=== PATIENT | female | born 1980 | race Caucasian/White ===

== ENCOUNTER → 2017-09-03 11:04 | Outpatient (CLI) | payer OTHER, SELFPAY ==
[2017-09-03 14:31] LABS: Amphetamine/Metha Screen,Urine Negative ng/mL (<1000); Barbiturates Screen,Urine Negative ng/mL (<200); Benzodiazepines Screen,Urine Negative ng/mL (200); Cannabinoid Screen,Urine Positive ng/mL (<50); Cocaine Screen,Urine Negative ng/g (<300); Methadone Screen,Urine Negative ng/mL (<300); Opiate Screen,Urine Negative ng/mL (<300); Phencyclidine Screen,Urine Negative ng/mL (<25)
== END ==
PROVIDERS: Visit Provider Emergency Medicine
DX: Z79.899 Other long term (current) drug therapy (principal)
CPT/HCPCS: 80305

== ENCOUNTER 2017-09-07 18:00 | Emergency (ER) | payer OTHER, SELFPAY ==
[2017-09-07 18:01] VITALS: BP 133/85; PULSE 58; RESP 16; TEMP 36.7; O2SAT 98; BMI 29.0
[2017-09-07 18:54] LABS: Basophils % 0.5 % (0.1-2.0); Eosinophils # 0.3 K/mm3 (0.0-0.4); Eosinophils % 2.8 % (0.1-12.0); Hematocrit 38.8 % (37.0-47.0); Hemoglobin 12.3 g/dL (12.2-16.2); Lymphocytes # 3.3 K/mm3 (0.7-4.5); Lymphocytes % 36.5 K/mm3 (10-50); Mean Corpuscular HGB Conc 31.8 g/dL (31.8-35.4); Mean Corpuscular Hemoglobin 29.9 pg (27.0-31.2); Mean Corpuscular Volume 94.2 fl (81-99); Mean Platelet Volume 8.6 fl (7.4-10.4); Monocytes # 0.5 K/mm3 (0.1-1.0); Neutrophils % 55.2 % (37.0-80.0); Platelet Count 272 K/mm3 (142-424); Red Blood Count 4.11 M/mm3 (4.20-5.40); Red Cell Distribution Width 13.6 % (11.5-17.5); White Blood Count 9.1 K/mm3 (4.8-10.8)
--- NOTE | 2017-09-07 18:55 | HMH.EDSYNC ---
ED Disposition Clinical Impression: Palpitations Syncope Qualifiers: Syncope type: unspecified Qualified Code(s): R55 - Syncope and collapse Disposition: Home, Self-Care Condition on Discharge: Good Instructions: DI for Sick Sinus Syndrome Additional Instructions: Please follow-up with your clip loading machine feeder (for a 2nd opinion) at your earliest convenience. Referrals: Galo Davenport MD [Primary Care Provider] - Forms: Work/School Release Time of Disposition: 20:10 - Critical Care Critical Care Time: No Attestation: On 09/07/17, the high probability of a clinically significant, sudden or life threatening deterioration of the following system(s) required my full and direct attention, intervention and personal management. The time I documented below is in addition to time spent performing reported procedures but includes the following listed in this critical care notation. Medical Decision Making - Medical Records Medical records reviewed: Yes: I reviewed the patient's medical records. Vital Signs: 09/07/17 18:01 09/07/17 19:01 09/07/17 20:23 Temperature 98.1 F 97.9 F 98.6 F Temperature Source Oral Oral Oral Pulse Rate 68 Pulse Rate [Right Radial] 58 L 63 Respiratory Rate 16 18 18 Blood Pressure 130/78 Blood Pressure [Right Arm] 133/85 141/80 Blood Pressure Mean [Right Arm] 101 100 Blood Pressure Source Automatic Cuff Blood Pressure Source [Right Arm] Automatic Cuff Automatic Cuff Blood Pressure Position Sitting Blood Pressure Position [Right Arm] Sitting Sitting 02 Sat by Pulse Oximetry 98 99 Oxygen Delivery Method Room Air Room Air Room Air - Lab Data Lab results reviewed: Yes: I reviewed the patient's lab results. Lab Results 09/07/17 18:45: WBC 9.1, RBC 4.11 L, Hgb 12.3, Hct 38.8, MCV 94.2, MCH 29.9, MCHC 31.8, RDW 13.6, Plt Count 272, MPV 8.6, Neut % (Auto) 55.2, Lymph % (Auto) 36.5, [place] % (Auto) 5.0, Eos % (Auto) 2.8, Baso % (Auto) 0.5, Neut # (Auto) 5.0, Lymph # (Auto) 3.3, [place] # (Auto) 0.5, Eos # (Auto) 0.3, Baso # (Auto) 0.0 09/07/17 18:45: Sodium 139, Potassium 3.5, Chloride 107, Carbon Dioxide 26, Anion Gap 9.5, BUN 9, Creatinine 0.74, Estimated Creat Clear 133, Estimated GFR 88, Est GFR ( Amer) 106, Glucose 96, Calcium 8.2 L, Total Bilirubin 0.3, AST 13 L, ALT 19, Alkaline Phosphatase 57, Total Protein 6.7, Albumin 3.3 L, Globulin 3.4 H, Albumin/Globulin Ratio 1.0 L 09/07/17 18:45: Total Creatine Kinase 95, CK-MB (CK-2) 0.5, CK-MB (CK-2) Rel Index 0.5, Troponin I < 0.02 Result diagrams: 09/07/17 18:45 09/07/17 18:45 Orders (Tests/Meds): ORDERS Category Date Time Status ECG Request by /Darleen Stat Y 09/07/17 18:37 Ordered - ECG Data Tracing #1 I reviewed this ECG and interpreted as documented below: No acute ischemic changes ECG normal with no acute: arrhythmias, ischemia, conduction abnormalities, chamber hypertrophy Normal Sinus Rhythm: Yes Arrhythmias present: PVC's - Kofi Inquiry Pt receiving controlled substance: No - Reevaluation(s) Time: 20:10 Reevaluation #1: Upon reevaluation the patient appears medically stable distress, advised her to follow-up with window 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 Syncope HPI - General Chief Complaint: Dizziness Stated Complaint: Dizziness Mode of Arrival: Ambulatory Limitations: No Limitations Description of Symptoms (Recalled from ER Triage Doc. by RN): Dizziness, near syncope - History of Present Illness HPI narrative: This is a 36-year-old female patient with history of syndrome, which are the underwent a radiofrequency ablation in [facility] approximately 2 years ago. She was at work around 3 PM, felt dizzy, hot, and passed out. She said that she did not pass out completely. Since being diagnosed with this medical condition the patient has had similar episodes in the past, on an average having 7-8 syncopal episodes per year. Her clip loading machine feeder in [facility] adv
--- NOTE | 2017-09-07 18:58 | ED_ITS ---
ED Disposition Clinical Impression: Palpitations Syncope Qualifiers: Syncope type: unspecified Qualified Code(s): R55 - Syncope and collapse Disposition: Home, Self-Care Condition on Discharge: Good Instructions: DI for Sick Sinus Syndrome Additional Instructions: Please follow-up with your gleason gear generator (for a 2nd opinion) at your earliest convenience. Referrals: Galo Davenport MD [Primary Care Provider] - Forms: Work/School Release Time of Disposition: 20:10 - Critical Care Critical Care Time: No Attestation: On 09/07/17, the high probability of a clinically significant, sudden or life threatening deterioration of the following system(s) required my full and direct attention, intervention and personal management. The time I documented below is in addition to time spent performing reported procedures but includes the following listed in this critical care notation. Medical Decision Making - Medical Records Medical records reviewed: Yes: I reviewed the patient's medical records. Vital Signs: 09/07/17 18:01 09/07/17 19:01 09/07/17 20:23 Temperature 98.1 F 97.9 F 98.6 F Temperature Source Oral Oral Oral Pulse Rate 68 Pulse Rate [Right Radial] 58 L 63 Respiratory Rate 16 18 18 Blood Pressure 130/78 Blood Pressure [Right Arm] 133/85 141/80 Blood Pressure Mean [Right Arm] 101 100 Blood Pressure Source Automatic Cuff Blood Pressure Source [Right Arm] Automatic Cuff Automatic Cuff Blood Pressure Position Sitting Blood Pressure Position [Right Arm] Sitting Sitting 02 Sat by Pulse Oximetry 98 99 Oxygen Delivery Method Room Air Room Air Room Air - Lab Data Lab results reviewed: Yes: I reviewed the patient's lab results. Lab Results 09/07/17 18:45: WBC 9.1, RBC 4.11 L, Hgb 12.3, Hct 38.8, MCV 94.2, MCH 29.9, MCHC 31.8, RDW 13.6, Plt Count 272, MPV 8.6, Neut % (Auto) 55.2, Lymph % (Auto) 36.5, [place] % (Auto) 5.0, Eos % (Auto) 2.8, Baso % (Auto) 0.5, Neut # (Auto) 5.0 , Lymph # (Auto) 3.3, [place] # (Auto) 0.5, Eos # (Auto) 0.3, Baso # (Auto) 0.0 09/07/17 18:45: Sodium 139, Potassium 3.5, Chloride 107, Carbon Dioxide 26, Anion Gap 9.5, BUN 9, Creatinine 0.74, Estimated Creat Clear 133, Estimated GFR 88, Est GFR ( Amer) 106, Glucose 96, Calcium 8.2 L, Total Bilirubin 0.3, AST 13 L, ALT 19, Alkaline Phosphatase 57, Total Protein 6.7, Albumin 3.3 L, Globulin 3.4 H, Albumin/Globulin Ratio 1.0 L 09/07/17 18:45: Total Creatine Kinase 95, CK-MB (CK-2) 0.5, CK-MB (CK-2) Rel Index 0.5, Troponin I < 0.02 Result diagrams: 09/07/17 18:45 09/07/17 18:45 Orders (Tests/Meds): ORDERS Category Date Time Status ECG Request by /Darleen Stat Y 09/07/17 18:37 Ordered - ECG Data Tracing #1 I reviewed this ECG and interpreted as documented below: No acute ischemic changes ECG normal with no acute: arrhythmias, ischemia, conduction abnormalities, chamber hypertrophy Normal Sinus Rhythm: Yes Arrhythmias present: PVC's - Kofi Inquiry Pt receiving controlled substance: No - Reevaluation(s) Time: 20:10 Reevaluation #1: Upon reevaluation the patient appears medically stable distress, advised her to follow-up with molded candles wicker within the next 2 days. Syncope HPI - General Chief Complaint: Dizziness Stated Complaint: Dizziness Mode of Arrival: Ambulatory Limitations: No Limitations Descripti
[2017-09-07 19:01] VITALS: BP 141/80; PULSE 63; RESP 18; TEMP 36.6; O2SAT 99
[2017-09-07 19:01] LABS: Alanine Aminotransferase 19 U/L (12-78); Albumin Level 3.3 gm/dL (3.4-5.0); Alkaline Phosphatase 57 U/L (46-116); Anion Gap 9.5 mEq/L (5-15); Aspartate Amino Transferase 13 U/L (15-37); Bilirubin,Total 0.3 mg/dL (0.2-1.0); Blood Urea Nitrogen 9 mg/dL (7-18); Calcium 8.2 mg/dL (8.5-10.1); Carbon Dioxide 26 mmol/L (21.0-32.0); Chloride 107 mmol/L (98-107); Creatinine Clearance Estimated 133 mL/min (0-300); Creatinine,Serum 0.74 mg/dL (0.55-1.02); Estimated Glomerular Filt Rate 88 ml/min (>60); GFR (African American) 106 ML/MIN (>60); Globulin 3.4 gm/dl (1.3-3.2); Glucose 96 mg/dL (74-106); Potassium 3.5 mmoL/L (3.5-5.1); Sodium 139 mmol/L (136-145); Total Protein,Serum 6.7 gm/dL (6.4-8.2)
[2017-09-07 19:14] LABS: CKMB Relative Index 0.5 U/L (0-4.0); Creatine Kinase 95 U/L (26-192); Creatine Kinase MB 0.5 mg/ml (0.0-3.6); Troponin I < 0.02 ng/ml (0.00-0.06)
[2017-09-07 20:23] VITALS: BP 130/78; PULSE 68; RESP 18; TEMP 37; O2SAT 98
== END 2017-09-07 20:23 | disposition home or self-care (01) ==
PROVIDERS: Emergency Provider Emergency Medicine; PCP Emergency Medicine
DX: R55 Syncope and collapse (principal); R00.2 Palpitations; I49.5 Sick sinus syndrome; F17.210 Nicotine dependence, cigarettes, uncomplicated; Z79.82 Long term (current) use of aspirin
CPT/HCPCS: 80053; 82550; 82553; 84484; 85025; 93005; 99283

== ENCOUNTER 2017-09-22 00:07 | Emergency (ER) | payer OTHER, SELFPAY ==
[2017-09-22 00:13] VITALS: BP 126/106; PULSE 115; RESP 20; TEMP 37.3; O2SAT 94; BMI 28.8
[2017-09-22 00:57] LABS: Basophils % 0.4 % (0.1-2.0); Eosinophils # 0.1 K/mm3 (0.0-0.4); Eosinophils % 1.8 % (0.1-12.0); Hematocrit 43.4 % (37.0-47.0); Hemoglobin 14.3 g/dL (12.2-16.2); Lymphocytes # 0.7 K/mm3 (0.7-4.5); Lymphocytes % 10.9 K/mm3 (10-50); Mean Corpuscular HGB Conc 33.1 g/dL (31.8-35.4); Mean Corpuscular Hemoglobin 30.3 pg (27.0-31.2); Mean Corpuscular Volume 91.6 fl (81-99); Mean Platelet Volume 8.5 fl (7.4-10.4); Monocytes # 0.7 K/mm3 (0.1-1.0); Monocytes % 10.1 % (1.7-9.3); Neutrophils # 5.1 K/mm3 (1.8-7.8); Neutrophils % 76.8 % (37.0-80.0); Platelet Count 252 K/mm3 (142-424); Red Blood Count 4.73 M/mm3 (4.20-5.40); Red Cell Distribution Width 13.5 % (11.5-17.5); White Blood Count 6.6 K/mm3 (4.8-10.8)
[2017-09-22 01:07] LABS: Anion Gap 9.7 mEq/L (5-15); Blood Urea Nitrogen 10 mg/dL (7-18); Carbon Dioxide 22 mmol/L (21.0-32.0); Chloride 103 mmol/L (98-107); Creatinine Clearance Estimated 142 mL/min (0-300); Creatinine,Serum 0.69 mg/dL (0.55-1.02); Estimated Glomerular Filt Rate 95 ml/min (>60); GFR (African American) 115 ML/MIN (>60); Glucose 96 mg/dL (74-106); Potassium 3.7 mmoL/L (3.5-5.1); Sodium 131 mmol/L (136-145)
[2017-09-22 01:26] LABS: Microscopic, Urine URINE MICROSCOPIC (MICROSCOPIC)
[2017-09-22 01:27] LABS: Appearance,Urine CLEAR (Clear); Blood, Urine 1+ (Negative); Color,Urine YELLOW (Yellow); Glucose,Urine (UA) Negative (Negative); Ketones,Urine 3+ (Negative); Leukocyte Esterase,Urine 2+ (Negative); Nitrate,Urine Negative (Negative); PH,Urine 5.5 (5.0-8.5); Protein,Urine TRACE (Negative); Specific Gravity, Urine >= 1.030 (1.005-1.030); Urobilinogen,Urine 0.2 EU/dl (0.2)
[2017-09-22 01:37] LABS: Amorphous Sediment,Urine Trace /lpf; Bacteria,Urine 2+ /lpf; Bilirubin,Urine Negative (Negative); Mucus,Urine 1+ /lpf
--- NOTE | 2017-09-22 02:28 | HMH.EDURI ---
ED Disposition Clinical Impression: UTI (urinary tract infection) Qualifiers: Urinary tract infection type: site unspecified Hematuria presence: without hematuria Qualified Code(s): N39.0 - Urinary tract infection, site not specified Arthralgia Qualifiers: Joint pain location: hip Laterality: left Qualified Code(s): M25.552 - Pain in left hip Disposition: Home, Self-Care Condition on Discharge: Good Instructions: DI for Urinary Tract Infection (UTI) Additional Instructions: use meds and call office for urine culture results Prescriptions: cephALEXin [Keflex 500mg Cap] 500 mg PO TID #21 cap Referrals: Galo Davenport MD [Primary Care Provider] - - Critical Care Critical Care Time: No Attestation: On 09/22/17, the high probability of a clinically significant, sudden or life threatening deterioration of the following system(s) required my full and direct attention, intervention and personal management. The time I documented below is in addition to time spent performing reported procedures but includes the following listed in this critical care notation. Medical Decision Making - Medical Records Medical records reviewed: Yes: I reviewed the patient's medical records. - Kofi Inquiry Pt receiving controlled substance: No Vital Signs: 09/22/17 00:13 Temperature 99.2 F Temperature Source Oral Pulse Rate [Right Radial] 115 H Respiratory Rate 20 Blood Pressure [Right Arm] 126/106 Blood Pressure Mean [Right Arm] 112 Blood Pressure Source [Right Arm] Automatic Cuff Blood Pressure Position [Right Arm] Sitting 02 Sat by Pulse Oximetry 94 L Oxygen Delivery Method Room Air - Lab Data Lab results reviewed: Yes: I reviewed the patient's lab results. Lab Results 09/22/17 00:47: WBC 6.6, RBC 4.73, Hgb 14.3, Hct 43.4, MCV 91.6, MCH 30.3, MCHC 33.1, RDW 13.5, Plt Count 252, MPV 8.5, Neut % (Auto) 76.8, Lymph % (Auto) 10.9, [place] % (Auto) 10.1 H, Eos % (Auto) 1.8, Baso % (Auto) 0.4, Neut # (Auto) 5.1, Lymph # (Auto) 0.7, [place] # (Auto) 0.7, Eos # (Auto) 0.1, Baso # (Auto) 0.0 09/22/17 00:47: Sodium 131 L, Potassium 3.7, Chloride 103, Carbon Dioxide 22, Anion Gap 9.7, BUN 10, Creatinine 0.69, Estimated Creat Clear 142, Estimated GFR 95, Est GFR ( Amer) 115, Glucose 96 09/22/17 00:47: C-Reactive Protein 0.5 09/22/17 00:47: Monoscreen Negative 09/22/17 00:47: Total Bilirubin 0.2, Direct Bilirubin 0.1, AST 14 L, ALT 19, Alkaline Phosphatase 72, Total Protein 7.7, Albumin 3.8 09/22/17 00:56: Influenza Type A Ag Negative, Influenza Type B Ag Negative 09/22/17 01:15: Urine Color Yellow, Urine Appearance Clear, Urine pH 5.5, Ur Specific [place] >= 1.030, Urine Protein Trace, Urine Glucose (UA) Negative, Urine Ketones 3+, Urine Blood 1+, Urine Nitrate Negative, Urine Bilirubin Negative, Urine Urobilinogen 0.2, Ur Leukocyte Esterase 2+ A, Urine RBC 3-5, Urine WBC 10-20, Ur Squamous Epith Cells 3-5, Amorphous Sediment Trace, Urine Bacteria 2+, Urine Mucus 1+ Result diagrams: 09/22/17 00:47 09/22/17 00:47 Orders (Tests/Meds): ED MEDICATIONS Generic Name Dose Route Start Last Admin Trade Name Freq PRN Reason Stop Dose Admin Ceftriaxone Sodium 1 gm/ 50 mls @ 100 mls/hr 09/22/17 02:45 09/22/17 02:42 Sodium Chloride IV 10/06/17 02:44 100 mls/hr Q24H TRAE Administration Protocol Discontinued Medications Generic Name Dose Route Start Last Admin Trade Name Freq PRN Reason Stop Dose Admin Sodium Chloride 1,000 mls @ 999 mls/hr 09/22/17 00:45 09/22/17 00:43 Sod Chlor 0.9% 1000ml Bag IV 09/22/17 01:45 999 mls/hr .Q1H1M TRAE Administration Sodium Chloride 1,000 mls @ 999 mls/hr 09/22/17 01:45 09/22/17 01:57 Sod Chlor 0.9% 1000ml Bag IV 09/22/17 02:45 999 mls/hr .Q1H1M TRAE Administration Ketorolac Tromethamine 30 mg 09/22/17 00:31 09/22/17 00:43 Toradol 30mg/Ml Vial IV 09/22/17 00:32 30 mg ONCE ONE Administration Methylprednisolone Sodium Succinate 125 mg 09/22/17
--- NOTE | 2017-09-22 02:31 | ED_ITS ---
ED Disposition Clinical Impression: UTI (urinary tract infection) Qualifiers: Urinary tract infection type: site unspecified Hematuria presence: without hematuria Qualified Code(s): N39.0 - Urinary tract infection, site not specified Arthralgia Qualifiers: Joint pain location: hip Laterality: left Qualified Code(s): M25.552 - Pain in left hip Disposition: Home, Self-Care Condition on Discharge: Good Instructions: DI for Urinary Tract Infection (UTI) Additional Instructions: use meds and call office for urine culture results Prescriptions: cephALEXin [Keflex 500mg Cap] 500 mg PO TID #21 cap Referrals: Galo Davenport MD [Primary Care Provider] - - Critical Care Critical Care Time: No Attestation: On 09/22/17, the high probability of a clinically significant, sudden or life threatening deterioration of the following system(s) required my full and direct attention, intervention and personal management. The time I documented below is in addition to time spent performing reported procedures but includes the following listed in this critical care notation. Medical Decision Making - Medical Records Medical records reviewed: Yes: I reviewed the patient's medical records. - Kofi Inquiry Pt receiving controlled substance: No Vital Signs: 09/22/17 00:13 Temperature 99.2 F Temperature Source Oral Pulse Rate [Right Radial] 115 H Respiratory Rate 20 Blood Pressure [Right Arm] 126/106 Blood Pressure Mean [Right Arm] 112 Blood Pressure Source [Right Arm] Automatic Cuff Blood Pressure Position [Right Arm] Sitting 02 Sat by Pulse Oximetry 94 L Oxygen Delivery Method Room Air - Lab Data Lab results reviewed: Yes: I reviewed the patient's lab results. Lab Results 09/22/17 00:47: WBC 6.6, RBC 4.73, Hgb 14.3, Hct 43.4, MCV 91.6, MCH 30.3, MCHC 33.1, RDW 13.5, Plt Count 252, MPV 8.5, Neut % (Auto) 76.8, Lymph % (Auto) 10.9 , [place] % (Auto) 10.1 H, Eos % (Auto) 1.8, Baso % (Auto) 0.4, Neut # (Auto) 5.1, Lymph # (Auto) 0.7, [place] # (Auto) 0.7, Eos # (Auto) 0.1, Baso # (Auto) 0.0 09/22/17 00:47: Sodium 131 L, Potassium 3.7, Chloride 103, Carbon Dioxide 22, Anion Gap 9.7, BUN 10, Creatinine 0.69, Estimated Creat Clear 142, Estimated GFR 95, Est GFR ( Amer) 115, Glucose 96 09/22/17 00:47: C-Reactive Protein 0.5 09/22/17 00:47: Monoscreen Negative 09/22/17 00:47: Total Bilirubin 0.2, Direct Bilirubin 0.1, AST 14 L, ALT 19, Alkaline Phosphatase 72, Total Protein 7.7, Albumin 3.8 09/22/17 00:56: Influenza Type A Ag Negative, Influenza Type B Ag Negative 09/22/17 01:15: Urine Color Yellow, Urine Appearance Clear, Urine pH 5.5, Ur Specific [place] >= 1.030, Urine Protein Trace, Urine Glucose (UA) Negative, Urine Ketones 3+, Urine Blood 1+, Urine Nitrate Negative, Urine Bilirubin Negative, Urine Urobilinogen 0.2, Ur Leukocyte Esterase 2+ A, Urine RBC 3-5, Urine WBC 10-20, Ur Squamous Epith Cells 3-5, Amorphous Sediment Trace, Urine Bacteria 2+, Urine Mucus 1+ Result diagrams: 09/22/17 00:47 09/22/17 00:47 Orders (Tests/Meds): ED MEDICATIONS Generic Name Dose Route Start Last Admin Trade Name Freq PRN Reason Stop Dose Admin Ceftriaxone Sodium 1 gm/ 50 mls @ 100 mls/hr 09/22/17 02:45 09/22/17 02:42 Sodium Chloride IV 10/06/17 02:44 100 mls/hr Q24H TRAE Administration Protocol Discontinued Medications Generic Name Dose Route Start Last Admin
[2017-09-22 02:57] LABS: C-Reactive Protein 0.5 mg/L (0.0-0.9)
[2017-09-22 03:03] LABS: Alanine Aminotransferase 19 U/L (12-78); Albumin Level 3.8 gm/dL (3.4-5.0); Alkaline Phosphatase 72 U/L (46-116); Aspartate Amino Transferase 14 U/L (15-37); Bilirubin,Direct 0.1 mg/dL (0.0-0.2); Bilirubin,Total 0.2 mg/dL (0.2-1.0); Total Protein,Serum 7.7 gm/dL (6.4-8.2)
[2017-09-22 03:11] LABS: Monoscreen (Rapid) Negative (Negative)
[2017-09-22 03:19] LABS: Strep Scrn Group A (Rapid) Negative (Negative)
[2017-09-22 03:28] VITALS: BP 130/78; PULSE 80; RESP 14; TEMP 37.1; O2SAT 97
[2017-09-22 03:55] LABS: Erythrocyte Sedimentation Rate 12 mm/hr (0-20)
== END 2017-09-22 03:35 | disposition home or self-care (01) ==
PROVIDERS: Emergency Provider Emergency Medicine; PCP Emergency Medicine
DX: N39.0 Urinary tract infection, site not specified (principal); M25.552 Pain in left hip; Z79.82 Long term (current) use of aspirin; F17.210 Nicotine dependence, cigarettes, uncomplicated
CPT/HCPCS: 80048; 80076; 81001; 85025; 85651; 86140; 86318; 87086; 87275; 87276; 87430; 96365; 96366; 96375; 99282

== ENCOUNTER → 2017-11-26 09:51 | Outpatient (CLI) | payer OTHER, SELFPAY ==
--- NOTE | 2017-11-26 09:53 | NVE_ITS ---
Venous Exam Indications: 729.5 Pain in limb. 782.3 Edema. IMPRESSIONS No evidence of deep or superficial vein thrombosis involving the right lower extremity History: Right lower extremity pain. Edema of the right leg. Right lower extremity venous duplex evaluation. Doppler flow study including spectral analysis, color and louis scale imaging. Location: Vascular laboratory. Patient status: Outpatient. CRITICAL FINDINGS - Reported to: Dr. Davenport office - Read back and verified. - 11/26/17 - 10:20 - RLE negative for DVT or SVT Tables: Venous flow and imaging: + +-------+ + Location Overall Flow properties + +-------+ + Right common femoral Patent Normal phasicity; spontaneous; normal augmentation; compressible + +-------+ + Right saphenofemoral junction Patent Compressible + +-------+ + Right profunda femoral Patent Compressible + +-------+ + Right femoral Patent Normal phasicity; spontaneous; normal augmentation; compressible + +-------+ + Right greater saphenous Patent Normal phasicity; spontaneous; normal augmentation; compressible + +-------+ + Right popliteal Patent Normal phasicity; spontaneous; normal augmentation; compressible + +-------+ + Right posterior tibial Patent Compressible + +-------+ + Right peroneal Patent Compressible + +-------+ + Right gastrocnemius Patent Compressible + +-------+ + Right soleal Patent Compressible + +-------+ + (Report amended ) Electronically signed by: Moses Leal [id number]
== END ==
PROVIDERS: PCP Emergency Medicine; Visit Provider Emergency Medicine
DX: M79.606 Pain in leg, unspecified (principal); M79.89 Other specified soft tissue disorders
CPT/HCPCS: 93971

== ENCOUNTER → 2017-12-08 10:51 | Outpatient (CLI) | payer OTHER, SELFPAY | PROVIDERS: Visit Provider Emergency Medicine | DX: Z79.899 Other long term (current) drug therapy (principal) ==

== ENCOUNTER → 2018-04-21 09:43 | Outpatient (REF) | payer OTHER, SELFPAY ==
[2018-04-21 14:59] LABS: Amphetamine/Metha Screen,Urine Negative ng/mL (<1000); Barbiturates Screen,Urine Negative ng/mL (<200); Benzodiazepines Screen,Urine Negative ng/mL (<200); Cannabinoid Screen,Urine Positive ng/mL (<50); Cocaine Screen,Urine Negative ng/mL (<300); Methadone Screen,Urine Negative ng/mL (<300); Opiate Screen,Urine Negative ng/mL (<300); Phencyclidine Screen,Urine Negative ng/mL (<25)
== END ==
LOC: LAB 09:43
PROVIDERS: PCP Nurse Practitioner Family; Visit Provider Nurse Practitioner Family
DX: Z79.899 Other long term (current) drug therapy (principal)
CPT/HCPCS: 80305

== ENCOUNTER → 2018-08-26 14:36 | Outpatient (CLI) | payer OTHER, SELFPAY ==
[2018-08-26 15:36] LABS: Amphetamine/Metha Screen,Urine Negative ng/mL (<1000); Barbiturates Screen,Urine Negative ng/mL (<200); Benzodiazepines Screen,Urine Negative ng/mL (<200); Cannabinoid Screen,Urine Positive ng/mL (<50); Cocaine Screen,Urine Negative ng/mL (<300); Methadone Screen,Urine Negative ng/mL (<300); Opiate Screen,Urine Negative ng/mL (<300); Phencyclidine Screen,Urine Negative ng/mL (<25)
== END ==
PROVIDERS: Visit Provider Nurse Practitioner Family
DX: Z79.899 Other long term (current) drug therapy (principal)
CPT/HCPCS: 80305

== ENCOUNTER 2022-08-05 07:57 | Day surgery (SDC) | payer OTHER, SELFPAY ==
[2022-08-05 08:02] VITALS: BMI 27.1
[2022-08-05 08:42] VITALS: BP 128/81; PULSE 65; RESP 16; TEMP 36.9; O2SAT 98
[2022-08-05 09:07] VITALS: BP 128/77; PULSE 68; RESP 18; TEMP 36.9; O2SAT 98
--- NOTE | 2022-08-05 10:14 | EXP.LOOP ---
[facility] Loop Recorder Date: 08/05/22 Time: 09:00 Procedure Performed:: Removal of [employer] loop recorder Implantation of [place] [employer] loop recorder Indication:: Previous ILR at EOL Complaint of palpitations and history of syncope Technique:: Patient was brought to the cardiac Information Technology Intern. After informed consent obtained, 1% lidocaine with epinephrine was used to anesthetize the site along the left anterior aspect of the chest near the sternal border in the area of the previous loop recorder. Using a scalpel, an incision was made and then dissection down to the previous loop recorder which was removed with forceps. Next, using the supplied preloaded apparatus, the new loop recorder was placed subcutaneously in a different position without difficulty. Following the deployment of the loop recorder interrogation of the device was performed to ensure appropriate voltage was being detected. Once this was verified, Steri-Strips were placed over the incision and the patient was prepped to discharge home. Patient tolerated the procedure well with minimal discomfort. Impression:: Successful loop recorder removal with subsequent implantation of new [place] [employer] loop recorder Serial Number:: [employer] Lux-Dx loop recorder Model number M301 Serial #[id number] Plan:: Routine postop care
== END 2022-08-05 09:13 | disposition home or self-care (01) ==
LOC: CATHLAB 07:58
PROVIDERS: PCP Emergency Medicine; Visit Provider Internal Medicine
DX: I48.0 Paroxysmal atrial fibrillation (principal); F17.210 Nicotine dependence, cigarettes, uncomplicated; R00.2 Palpitations; I49.3 Ventricular premature depolarization
CPT/HCPCS: 33285

== ENCOUNTER 2022-10-08 10:30 | Emergency (ER) | payer OTHER, SELFPAY ==
[2022-10-08 10:37] VITALS: BP 147/82; PULSE 81; RESP 20; O2SAT 100; BMI 26.6
[2022-10-08 10:40] VITALS: BP 122/80; PULSE 73; RESP 16; TEMP 36.8; O2SAT 99; BMI 26.6
--- NOTE | 2022-10-08 10:42 | XR_ITS ---
FINAL REPORT CLINICAL HISTORY: Pt injured Lt hand catching her fall x days ago, pain @ PIP & DIP joint of 3rd phalanx FINDINGS: LEFT HAND Three views demonstrate an oblique, mildly displaced fracture through the 3rd middle phalanx. There is no dislocation. The visualized joint spaces are normally aligned. The joint spaces are preserved. The soft tissues are unremarkable. IMPRESSION: Oblique,mildly displaced fracture through the 3rd middle phalanx. Reviewed, Interpreted and Dictated by Guilherme Roberts MD Transcribed by Ml Stein Authenticated and [facility]
--- NOTE | 2022-10-08 11:02 | EXP.UTC ---
Discharge Plan Disposition Patient Disposition: Home, Self-Care Condition: Good Prescriptions Prescriptions: No Action omeprazole 40 mg capsule,delayed release(DR/EC) 40 mg PO DAILY escitalopram oxalate [Lexapro] 10 mg tablet 10 mg PO DAILY nebivolol [Bystolic] 5 mg tablet 5 mg PO DAILY Referrals Follow up/Referrals: Galo Davenport MD [Primary Care Provider] - See instructions Activity Restrictions/Add. Instructions Additional Instructions/Restrictions: Call [facility] at ?[phone] for appointment Leave splint in place and follow up with [facility] as advised *RICE, Rest the extremity, Ice 15-20 minutes 3-4 times daily, Compress- wear the luciano wrap as discussed as much as possible to help reduce swelling and pain, Elevate the extremity when at rest *Splint is for support and help control swelling, Be sure that is not to tight but not to loose either *Elevate when resting? *Ibuprofen 600-800mg every 6-8 hours as needed for pain an inflammation. If need something more can take Tylenol in between doses of Ibuprofen to help Immediately follow up with your family doctor for new or worsening of symptoms, or no noticeable improvement over the next 3-5 days Clinical Impressions Clinical Impression: Finger fracture Qualifiers: Encounter type: initial encounter Finger: middle finger Fracture type: closed Phalanx: middle Fracture alignment: nondisplaced Laterality: left Qualified Code(s): S62.653A - Nondisplaced fracture of middle phalanx of left middle finger, initial encounter for closed fracture Stand Alone Forms Stand Alone Forms: Work/School Release Instructions Patient Instructions: DI for Finger Fracture, How To Perform RICE (Rest, Ice, Compress, Elevate) Discharge ED Provider: Juli Wilburn [facility] HPI General Stated complaint: AO 4/5 Left middle finger swollen and bruised Mode of Arrival: Ambulatory Source of Information: Patient Limitations: No Limitations Time Seen by Provider: 10/08/22 11:02 Description of Symptoms (Recalled from Triage Doc. by RN): PATIENT STATES SHE FELL AND TRIED TO CATCH HERSELF WITH HER LEFT HAND. SWELLING AND BRUISING NOTED TO LEFT MIDDLE FINGER HEENT Symptoms (Recalled from RN notes): No Resp Symptoms (Recalled from RN notes): No Skin Symptoms (Recalled from RN notes): No MS Symptoms (Recalled from RN notes): Yes Functional Status (Recalled from RN notes): WNL History of Present Illness Provider Complaint: Patient states that last night she tripped and fell and tried to catch herself with her left hand States that she jammed up her left middle finger States that it was a little sideways and she pulled it back in place States that she can move and bend it slightly but it hurts and today it was swollen and bruised so she came in Related Data Home Medications Medication Instructions Recorded Confirmed escitalopram oxalate 10 mg tablet 10 mg PO DAILY Depression 10/08/22 10/08/22 (Lexapro) nebivolol 5 mg tablet (Bystolic) 5 mg PO DAILY Hypertension 10/08/22 10/08/22 omeprazole 40 mg capsule,delayed 40 mg PO DAILY Acid reflux 10/08/22 10/08/22 release Allergies Allergy/AdvReac Type Severity Reaction Status Date / Time No Known Allergies Allergy Verified 09/16/22 14:27 Worker's Comp Is this a Worker's Comp case?: No [facility] Disclaimer: The information contained in this section may have been updated after the patient was seen, as this information can be updated by other users. 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 Anxiety Atrial fibrillation Chest pain Dyspnea GERD (gastroesophageal reflux disease) PAF (paroxysmal atrial fibrillation) Symptomatic PVCs Surgical History S/P ablation of atrial fibrillation Social History Smoking Status: Current every day smoker tobacco type: cigarettes packs per day: 1 seco
[2022-10-08 11:57] VITALS: BP 122/80; PULSE 73; RESP 16; TEMP 36.8; O2SAT 99
== END 2022-10-08 11:59 | disposition home or self-care (01) ==
LOC: ER 10:37 → UTC 10:39
PROVIDERS: Emergency Provider Nurse Practitioner; PCP Emergency Medicine
DX: S62.623A Displaced fracture of middle phalanx of left middle finger, initial encounter for closed fracture (principal); F17.210 Nicotine dependence, cigarettes, uncomplicated; W01.10XA Fall on same level from slipping, tripping and stumbling with subsequent striking against unspecified object, initial encounter
CPT/HCPCS: 73130; 99212; 99214; G0463

== ENCOUNTER 2022-12-22 12:17 | Emergency (ER) | payer SELFPAY ==
[2022-12-22 12:19] VITALS: BP 139/76; PULSE 88; RESP 16; TEMP 36.9; O2SAT 100; BMI 23.5
[2022-12-22 12:30] VITALS: BP 113/80; PULSE 81; O2SAT 99
--- NOTE | 2022-12-22 12:36 | HMH.EDGENADL ---
Discharge Plan Disposition Patient Disposition: Home, Self-Care Prescriptions Prescriptions: New sulfamethoxazole-trimethoprim [Bactrim DS] 800-160 mg tablet 1 tab PO BID Qty: 20 0RF No Action omeprazole 40 mg capsule,delayed release(DR/EC) 40 mg PO DAILY escitalopram oxalate [Lexapro] 10 mg tablet 10 mg PO DAILY nebivolol [Bystolic] 5 mg tablet 5 mg PO DAILY Referrals Follow up/Referrals: Provider,Referral, MD [Primary Care Provider] - See instructions Clinical Impressions Clinical Impression: Abscess Instructions Patient Instructions: DI for Skin Abscess Discharge ED Provider: Ramos Alanis General Adult HPI General Chief complaint: Skin/Abscess/Foreign Body Stated complaint: Loop recorder device puss w/blood incision Time Seen by Provider: 12/22/22 12:41 Mode of Arrival: Ambulatory Source of Information: Patient Limitations: No Limitations Description of Symptoms (Recalled from ER Triage Doc. by RN): 42 yo F presents to ED with c/o drainage from loop recorder sight. pt states that this is her second loop recorder placed. pt is seen by dr cunha. pt reports small amounts of drainage ongoing for the past 2 months. History of Present Illness HPI narrative: This is a 42-year-old white female who is presenting with a draining lesion from her mid chest just been going on for the past 2 months. No skin redness. No fevers or chills. Related Data Home Medications Medication Instructions Recorded Confirmed escitalopram oxalate 10 mg tablet 10 mg PO DAILY Depression 10/08/22 10/08/22 (Lexapro) nebivolol 5 mg tablet (Bystolic) 5 mg PO DAILY Hypertension 10/08/22 10/08/22 omeprazole 40 mg capsule,delayed 40 mg PO DAILY Acid reflux 10/08/22 10/08/22 release Previous Rx's Medication Instructions Recorded sulfamethoxazole 800 1 tab PO BID #20 tabs 12/22/22 mg-trimethoprim 160 mg tablet (Bactrim DS) Allergies Allergy/AdvReac Type Severity Reaction Status Date / Time No Known Allergies Allergy Verified 09/16/22 14:27 [facility] Disclaimer: The information contained in this section may have been updated after the patient was seen, as this information can be updated by other users. 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 Anxiety Atrial fibrillation Chest pain Dyspnea GERD (gastroesophageal reflux disease) PAF (paroxysmal atrial fibrillation) Symptomatic PVCs Surgical History S/P ablation of atrial fibrillation Social History Smoking Status: Current every day smoker tobacco type: cigarettes packs per day: 1 second hand exposure: No alcohol intake: never substance use type: marijuana current occupational status: employed Travel in the last 8 weeks: Inside the [place] household members: spouse and children ROS Obtained: Yes All systems reviewed & no additional complaints except as documented Skin see HPI HEENT no runny nose sore throat Pulmonary no cough or shortness of breath Cardiovascular no chest pain pressure heaviness GI no abdominal pain nausea or vomiting no dysuria pyuria hematuria Musculoskeletal no neck or back pain Endocrine no polydipsia polyuria or polyphasia Psych no SI or HI The rest of the systems were reviewed and found to be negative Physical Exam Narrative Physical exam: Skin: There is a nonfluctuant lesion noted in between her breasts the lesion has no overlying skin erythema and is tender to palpation. HEENT: Normocephalic atraumatic extract muscles are intact pupils are equal and reactive to light Neck: Supple nontender Lungs: Clear to auscultation Heart: Regular rate and rhythm Abdomen: NABS soft nontender Extremities: No clubbing cyanosis or edema Neurologic: No unilateral weakness or numbness Lymphatic: No cervical or inguinal adenopathy Musculoskeletal: No ten
[2022-12-22 12:58] VITALS: BP 113/80; PULSE 74; RESP 18; TEMP 36.9; O2SAT 99
== END 2022-12-22 12:59 | disposition home or self-care (01) ==
PROVIDERS: Emergency Provider Emergency Medicine
DX: L02.213 Cutaneous abscess of chest wall (principal); F17.210 Nicotine dependence, cigarettes, uncomplicated; I48.0 Paroxysmal atrial fibrillation; K21.9 Gastro-esophageal reflux disease without esophagitis; F41.9 Anxiety disorder, unspecified
CPT/HCPCS: 99282; 99283

== ENCOUNTER 2023-03-23 10:17 | Day surgery (SDC) | payer OTHER, SELFPAY ==
[2023-03-23 10:21] VITALS: BMI 26.7
[2023-03-23 10:43] VITALS: BP 110/73; PULSE 74; RESP 18; O2SAT 99
[2023-03-23 11:12] VITALS: BP 131/81; PULSE 60; RESP 17; O2SAT 100
--- NOTE | 2023-03-23 11:19 | P.PCN_ITS ---
[facility] Loop Recorder Date: 03/23/23 Time: 11:19 Procedure Performed:: Loop recorder removal Indication:: Non-closure of incision with drainage without signs of infection Technique:: Patient was brought to the cardiac Director Supply [facility] as an outpatient. After informed consent was obtained, 1% lidocaine was used to anesthetize the area at the incision over the loop recorder. Using a surgical scalpel and forceps the device was located and removed without complications. Surgical glue, Steri- Strips and Tegaderm were placed for closure and protection. Patient tolerated the procedure without complications. Impression:: Successful removal of loop recorder Serial Number:: Not necessary Plan:: Routine postop care. Continue current medications. Follow-up in our office in 1 week
== END 2023-03-23 11:22 | disposition home or self-care (01) ==
PROVIDERS: PCP Internal Medicine; Visit Provider Internal Medicine
DX: T81.31XA Disruption of external operation (surgical) wound, not elsewhere classified, initial encounter (principal); Y71.0 Diagnostic and monitoring cardiovascular devices associated with adverse incidents; T81.41XA Infection following a procedure, superficial incisional surgical site, initial encounter; I48.0 Paroxysmal atrial fibrillation; F17.210 Nicotine dependence, cigarettes, uncomplicated; L03.313 Cellulitis of chest wall
CPT/HCPCS: 33286

== ENCOUNTER → 2023-04-01 10:42 | Outpatient (CLI) | payer OTHER, SELFPAY | PROVIDERS: Visit Provider Physician Assistant | DX: I49.3 Ventricular premature depolarization (principal); R00.2 Palpitations; F41.9 Anxiety disorder, unspecified; K21.9 Gastro-esophageal reflux disease without esophagitis | CPT/HCPCS: 93270 ==

== ENCOUNTER 2023-11-22 12:44 | Emergency (ER) | payer OTHER, SELFPAY ==
[2023-11-22 12:44] VITALS: BP 135/84; PULSE 89; RESP 19; TEMP 37.2; O2SAT 100; BMI 26.7
--- NOTE | 2023-11-22 12:45 | ECG_ITS ---
APPROVED REPORT Exam: Resting ECG HR:81 bpm ECG Measurements Heart Rate 81 AXES MI 118 P 71 QRSd 79 QRS 24 QT 350 T 37 QTc 388 Conclusion SINUS RHYTHM WITH SHORT MI INTERVAL LOW QRS VOLTAGE IN PRECORDIAL LEADS [QRS DEFLECTION < 1.0 mV IN CHEST LEADS] BORDERLINE ECG UNCONFIRMED REPORT Electronically signed by : Natanael Velez, 11/22/2023 15:09:02
--- NOTE | 2023-11-22 12:59 | XR_ITS ---
FINAL REPORT CLINICAL HISTORY: palpitations FINDINGS: 2 views of the chest were obtained . The heart is normal in size. The mediastinum is within normal limits. The lungs are clear. There is no pneumothorax. Osseous structures are unremarkable. IMPRESSION: No acute cardiopulmonary process. Reviewed, Interpreted and Dictated by Guilherme Roberts MD Transcribed by Estefany Fuller Authenticated and [facility]
[2023-11-22 13:00] VITALS: BP 112/72; PULSE 77; RESP 17; O2SAT 99
--- NOTE | 2023-11-22 13:11 | HMH.EDGENADL ---
Discharge Plan Disposition Patient Disposition: Home, Self-Care Prescriptions Prescriptions: New famotidine 40 mg tablet 40 mg PO BID 84 Days Qty: 168 0RF famotidine 20 mg tablet 20 mg PO BID 42 Days Qty: 84 0RF No Action omeprazole 40 mg capsule,delayed release(DR/EC) 40 mg PO DAILY Rolaids (calcium carbonate) 550 mg Tablet,Chewable 1,100 mg PO BIDP PRN (Reason: reflux) Referrals Follow up/Referrals: Won Garcia MD [Staff Physician] - See instructions Provider,MD Linda [Primary Care Provider] - See instructions Activity Restrictions/Add. Instructions Additional Instructions/Restrictions: Your symptoms today are consistent with chronic inflammatory symptoms associated with gastroesophageal reflux disease/esophagitis. I highly recommend that you follow-up outpatient for an endoscopy for further evaluation and management. You may take Pepcid and [id number] antacid such as Maalox etc. Return with any significant worsening of your symptoms. No evidence of a cardiopulmonary emergency today. Clinical Impressions Clinical Impression: GERD (gastroesophageal reflux disease) Qualifiers: Esophagitis presence: esophagitis presence not specified Qualified Code(s): K21.9 - Gastro-esophageal reflux disease without esophagitis Discharge ED Provider: Davy Velez General Adult HPI General Chief complaint: Arrhythmia/Palpitations Stated complaint: Chest Pain Time Seen by Provider: 11/22/23 12:58 History of Present Illness HPI narrative: Patient is a 42-year-old female presents today with chest discomfort and heartburn. She states she has been dealing with this intermittently over the last 10 years. She has been followed chronically for arrhythmias by Dr. Oakley. However she has had intermittent heartburn she describes it as feeling metallic taste in her mouth and feeling a burning sensation in her throat and her upper chest that has not been resolved with Protonix. She has not had a scope in the past. Denies any melena denies any significant abdominal pain. Denies any exertional chest pain shortness of breath etc. Occasionally she will feel tacky dysrhythmias but has had loop recorder symptoms been extensively evaluated and managed by cardiology regarding that. Additionally she states she has had severe stress in the last year has had 8 family members in her immediate and extended family could have in the last 12 months. She states that this has worsened her symptoms. Related Data Home Medications Medication Instructions Recorded Confirmed omeprazole 40 mg capsule,delayed 40 mg PO DAILY Acid reflux 10/08/22 11/22/23 release calcium carbonate 550 mg chewable 1,100 mg PO BIDP PRN reflux 11/22/23 11/22/23 tablet Previous Rx's Medication Instructions Recorded famotidine 20 mg tablet 20 mg PO BID 6 weeks #84 tabs 11/22/23 famotidine 40 mg tablet 40 mg PO BID 12 weeks #168 tabs 11/22/23 Allergies Allergy/AdvReac Type Severity Reaction Status Date / Time No Known Allergies Allergy Verified 04/01/23 09:[address] [facility] Disclaimer: The information contained in this section may have been updated after the patient was seen, as this information can be updated by other users. 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 Anxiety Atrial fibrillation Chest pain Dyspnea GERD (gastroesophageal reflux disease) PAF (paroxysmal atrial fibrillation) Symptomatic PVCs Surgical History S/P ablation of atrial fibrillation Social History Smoking Status: Former smoker tobacco type: cigarettes packs per day: 1 second hand exposure: No alcohol intake: never substance use type: marijuana current occupational status: employed Travel in the last 8 weeks: [place] the [place] household members: spouse and children ROS Obtained: Yes All systems reviewed & no additional complaints except as documented Physical Exam General General appearance: alert and in no apparent distress Respiratory Respiratory exam: Present normal lung sounds bilaterally; Absent respiratory distress Cardiovascular Cardiovascular exam: Present regular rate and normal rhythm Abdominal Exam Abdominal exam: Present soft; Absent distention or tenderness Neurological Exam Neurological exam: Present alert and oriented X3 Medical Decision Making Kofi Inquiry Pt receiving controlled substance: No Vital Signs: 11/22/23 12:44 11/22/23 13:00 11/22/23 13:45 Temperature 98.9 F Temperature Source Oral Pulse Rate 77 75 Pulse Rate [Right] 89 Respiratory Rate 19 17 17 Blood Pressure 112/72 93/60 L Blood Pressure [Right Arm] 135/84 Blood Pressure Mean Blood Pressure Mean [Right Arm] 101 Blood Pressure Source [Right Arm] Automatic Cuff 02 Sat by Pulse Oximetry 100 99 97 Oxygen Delivery Method Room Air Room Air Room Air 11/22/23 14:00 Temperature Temperature Source Pulse Rate 72 Pulse Rate [Right] Respiratory Rate 14 Blood Pressure 112/73 Blood Pressure [Right Arm] Blood Pressure Mean 86 Blood Pressure Mean [Right Arm] Blood Pressure Source [Right Arm] 02 Sat by Pulse Oximetry 99 Oxygen Delivery Method Room Air Lab Data Lab results reviewed: Yes I reviewed the patient's lab results. Lab Results 11/22/23 12:48: WBC 8.9, RBC 4.26, Hgb 13.2, Hct 41.1, MCV 96.4, MCH 31.0, MCHC 32.1, RDW 13.5, Plt Count 326, MPV 8.4, Neut % (Auto) 49.4, Lymph % (Auto) 42.4, Duval % (Auto) 4.6, Eos % (Auto) 2.7, Baso % (Auto) 1.0, Neut # (Auto) 4.4, Lymph # (Auto) 3.8, Duval # (Auto) 0.4, Eos # (Auto) 0.2, Baso # (Auto) 0.1, Sodium 137, Potassium 3.7, Chloride 104, Carbon Dioxide 25, Anion Gap 11.7, BUN 12, Creatinine 0.70, Estimated Creat Clear 126, Estimated GFR 91, Est GFR ( Amer) 110, Glucose 105 H, Calcium 8.9, Total Bilirubin 0.3, AST 29, ALT 19, Alkaline Phosphatase 53, Troponin I < 0.01, Total Protein 7.0, Albumin 4.0, Globulin 3.0, Albumin/Globulin Ratio 1.3 11/22/23 : Magnesium 1.7, Lipase 56 11/22/23 12:48 11/22/23 12:48 Orders (Tests/Meds): ED MEDICATIONS Generic Name Dose Route Start Last Admin Trade Name Freq PRN Reason Stop Dose Admin Sodium Chloride 8 ml 11/22/23 13:10 11/22/23 13:28 Sodium Chloride 0.9% 10ml Vial IV 12/22/23 13:09 8 ml NEEDED PRN Administration dilute pepcid Discontinued Medications Generic Name Dose Route Start Last Admin Trade Name Freq PRN Reason Stop Dose Admin Belladonna Alkaloids 60 ml 11/22/23 13:10 11/22/23 13:28 Belladonna Alkaloids 60 Ml Ml PO 11/22/23 13:11 60 ml ONCE ONE Administration Famotidine 20 mg 11/22/23 13:10 11/22/23 13:28 Famotidine 20mg/2ml Vial IV 11/22/23 13:11 20 mg ONCE ONE Administration ORDERS Category Date Time Status CXR 2 view (NOT portable) [XR chest 2V] Stat Exams 11/22/23 12:59 Completed Complete Blood Count Auto Diff Stat Lab 11/22/23 12:48 Completed Comprehensive Metabolic Panel Stat Lab 11/22/23 12:48 Completed Lipase Stat Lab 11/22/23 Results Magnesium Stat Lab 11/22/23 Results TSH [Thyroid Stimulating Hormone] Stat Lab 11/22/23 Results Troponin I Q3H Lab 11/22/23 16:00 Ordered Troponin I Q3H Lab 11/22/23 19:00 Ordered Troponin I Stat Lab 11/22/23 12:48 Completed ECG Data Tracing #1: I reviewed this ECG and interpreted as documented below: Ventricular rate of 81 sinus rhythm no acute ischemic changes noted normal axis no significant conduction abnormalities Medical Decision Narrative: 42-year-old female presents today with history and physical most likely consistent with GERD over manifestations of esophagitis within the context of that. Given the chronicity which she states has been intermittent for the last 10 years I will recommend she follow-up outpatient for an endoscopy if she could advanced inflammatory changes or even cancer. This is unlikely to be cardiovascular in nature. Symptoms been ongoing since yesterday and not unchanged will do single troponin EKG is nonischemic. I will give her GI cocktail and Pepcid both for diagnostic and therapeutic reasons. I believe that her significant stressors that she is however last year certainly could be contributing as well. Will reassess after her initial workup is complete. Chest x-ray performed at person interpreted shows no acute cardiopulmonary emergency Reassessment 2:26 PM patient feeling much better labs unremarkable patient had complete resolution of her symptoms almost immediately after GI cocktail suggesting this is very likely GERD/esophagitis. She will follow-up outpatient for an endoscopy. I have given her prescription for Pepcid and she also has been told to take Maalox as needed for symptoms. She was discharged in stable condition. Critical Care Critical Care Time Critical Care Time: No
[2023-11-22 13:12] LABS: Alanine Aminotransferase 19 U/L (12-78); Albumin/Globulin Ratio 1.3 (1.1-1.8); Alkaline Phosphatase 53 U/L (38-126); Anion Gap 11.7 mEq/L (5-15); Aspartate Amino Transferase 29 U/L (14-36); Bilirubin,Total 0.3 mg/dl (0.2-1.3); Blood Urea Nitrogen 12 mg/dl (7-17); Calcium 8.9 mg/dl (8.4-10.2); Carbon Dioxide 25 mmol/L (22.0-30.0); Chloride 104 mmol/L (98-107); Creatinine Clearance Estimated 126 mL/min (50-200); Estimated Glomerular Filt Rate 91 ml/min (>60); GFR (African American) 110 ML/MIN (>60); Glucose 105 mg/dl (74-100); Potassium 3.7 mmoL/L (3.5-5.1); Sodium 137 mmol/L (136-145)
[2023-11-22 13:13] LABS: Basophils # 0.1 K/mm3 (0-0.2); Eosinophils # 0.2 K/mm3 (0.0-0.4); Eosinophils % 2.7 % (0.1-12.0); Hematocrit 41.1 % (37.0-47.0); Hemoglobin 13.2 g/dL (12.2-16.2); Lymphocytes # 3.8 K/mm3 (0.7-4.5); Lymphocytes % 42.4 % (10-50); Mean Corpuscular HGB Conc 32.1 g/dL (31.8-35.4); Mean Corpuscular Volume 96.4 fl (81-99); Mean Platelet Volume 8.4 fl (7.4-10.4); Monocytes # 0.4 K/mm3 (0.1-1.0); Monocytes % 4.6 % (1.7-9.3); Neutrophils # 4.4 K/mm3 (1.8-7.8); Neutrophils % 49.4 % (37.0-80.0); Platelet Count 326 K/mm3 (142-424); Red Blood Count 4.26 M/mm3 (4.20-5.40); Red Cell Distribution Width 13.5 % (11.5-17.5); White Blood Count 8.9 K/mm3 (4.8-10.8)
[2023-11-22 13:28] LABS: Troponin I < 0.01 ng/ml (0.00-0.034)
[2023-11-22] MEDS: FAMOTIDINE 20MG/2ML VIAL 20 MG IV (13:28)
[2023-11-22] MEDS: SODIUM CHLORIDE 0.9% 10ML VIAL 8 ML IV (13:28)
[2023-11-22] MEDS: BELLADONNA ALKALOIDS 60 ML ML PO (13:28)
[2023-11-22 13:45] VITALS: BP 93/60; PULSE 75; RESP 17; O2SAT 97
[2023-11-22 14:00] VITALS: BP 112/73; PULSE 72; RESP 14; O2SAT 99
[2023-11-22 14:03] LABS: Lipase 56 U/L (23-300); Magnesium 1.7 mg/dl (1.6-2.3)
[2023-11-22 14:29] VITALS: BP 108/71; PULSE 72; RESP 18; TEMP 37.2; O2SAT 99
[2023-11-22 14:35] LABS: Thyroid Stimulating Hormone 4.04 uIU/mL (0.465-4.68)
== END 2023-11-22 14:43 | disposition home or self-care (01) ==
PROVIDERS: Emergency Provider Student in an Organized Health Care Education/Training Program
DX: K21.9 Gastro-esophageal reflux disease without esophagitis (principal); R07.9 Chest pain, unspecified
CPT/HCPCS: 71046; 80053; 83690; 83735; 84443; 84484; 85025; 93005; 96374; 99284

== ENCOUNTER 2024-01-11 13:37 | Emergency (ER) | payer OTHER, SELFPAY ==
[2024-01-11] VITALS (9 sets, daily range): BP systolic 114–132; BP diastolic 74–87; PULSE 59–85; RESP 14–17; TEMP 36.9; O2SAT 93–100; BMI 26.6
--- NOTE | 2024-01-11 13:00 | ECG_ITS ---
APPROVED REPORT Exam: Resting ECG HR:80 bpm ECG Measurements Heart Rate 80 AXES NJ 118 P 48 QRSd 81 QRS 22 QT 375 T 41 QTc 411 Conclusion Sinus rhythm intermittent PVCs Electronically signed by : SOPHIA MONTESINOS, 01/11/2024 16:04:15
--- NOTE | 2024-01-11 13:01 | XR_ITS ---
FINAL REPORT CLINICAL HISTORY: Shortness of breath and chest pain COMPARISON: 11/22/2023 FINDINGS: A single portable view of the chest was obtained. The heart size and pulmonary vascularity are within normal limits. The mediastinum is within normal limits. No acute pulmonary abnormality is identified. The bony thorax is intact. IMPRESSION: No active cardiopulmonary disease. Reviewed, Interpreted and Dictated by Won Kelly III, MD Transcribed by Norma Beckford Authenticated and [facility]
[2024-01-11 13:09] LABS: Basophils # 0.1 K/mm3 (0-0.2); Basophils % 0.9 % (0.1-2.0); Eosinophils # 0.3 K/mm3 (0.0-0.4); Eosinophils % 3.3 % (0.1-12.0); Hematocrit 38.5 % (37.0-47.0); Hemoglobin 12.8 g/dL (12.2-16.2); Lymphocytes # 3.5 K/mm3 (0.7-4.5); Lymphocytes % 40.6 % (10-50); Mean Corpuscular HGB Conc 33.1 g/dL (31.8-35.4); Mean Corpuscular Hemoglobin 31.1 pg (27.0-31.2); Mean Corpuscular Volume 93.9 fl (81-99); Mean Platelet Volume 8.2 fl (7.4-10.4); Monocytes # 0.4 K/mm3 (0.1-1.0); Monocytes % 4.8 % (1.7-9.3); Neutrophils # 4.3 K/mm3 (1.8-7.8); Neutrophils % 50.5 % (37.0-80.0); Platelet Count 291 K/mm3 (142-424); Red Blood Count 4.11 M/mm3 (4.20-5.40); Red Cell Distribution Width 13.5 % (11.5-17.5); White Blood Count 8.5 K/mm3 (4.8-10.8)
[2024-01-11 13:18] LABS: Alanine Aminotransferase 21 U/L (12-78); Albumin Level 3.9 g/dl (3.5-5.0); Albumin/Globulin Ratio 1.3 (1.1-1.8); Alkaline Phosphatase 49 U/L (38-126); Anion Gap 6.5 mEq/L (5-15); Aspartate Amino Transferase 26 U/L (14-36); Bilirubin,Total 0.2 mg/dl (0.2-1.3); Blood Urea Nitrogen 14 mg/dl (7-17); Calcium 8.8 mg/dl (8.4-10.2); Carbon Dioxide 27 mmol/L (22.0-30.0); Chloride 105 mmol/L (98-107); Creatinine Clearance Estimated 124 mL/min (50-200); Estimated Glomerular Filt Rate 90 ml/min (>60); GFR (African American) 109 ML/MIN (>60); Glucose 98 mg/dl (74-100); Lipase 66 U/L (23-300); Potassium 3.5 mmoL/L (3.5-5.1); Sodium 135 mmol/L (136-145); Total Protein,Serum 6.9 g/dl (6.3-8.2)
[2024-01-11 13:31] LABS: NT Pro Brain Natriuretic Pep. 42.6 pg/mL (0-125); Troponin I < 0.01 ng/ml (0.00-0.034)
[2024-01-11 13:35] LABS: Microscopic, Urine URINE MICROSCOPIC (MICROSCOPIC)
[2024-01-11 13:37] LABS: Appearance,Urine SL CLOUDY (Clear); Bilirubin,Urine Negative (Negative); Blood, Urine Negative (Negative); Color,Urine YELLOW (Yellow); Glucose,Urine (UA) Negative (Negative); Ketones,Urine Negative (Negative); Leukocyte Esterase,Urine 1+ (Negative); Nitrate,Urine Negative (Negative); Protein,Urine Negative (Negative); Urobilinogen,Urine 0.2 EU/dl (0.2)
[2024-01-11 13:38] LABS: Lactic Acid 1.5 mmol/L (0.7-2.1)
--- NOTE | 2024-01-11 13:58 | ED_ITS ---
Discharge Plan Disposition Patient Disposition: Home, Self-Care Chief Complaint: Chest Pain Prescriptions Prescriptions: No Action omeprazole 40 mg capsule,delayed release(DR/EC) 40 mg PO DAILY Rolaids (calcium carbonate) 550 mg Tablet,Chewable 1,100 mg PO BIDP PRN (Reason: reflux) famotidine 40 mg tablet 40 mg PO BID 84 Days Qty: 168 0RF famotidine 20 mg tablet 20 mg PO BID 42 Days Qty: 84 0RF Referrals Follow up/Referrals: Provider,MD Linda [Primary Care Provider] - See instructions Lopez Oakley MD [Staff Physician] - See instructions Activity Restrictions/Add. Instructions Additional Instructions/Restrictions: At this time it was felt you are safe to be discharged home. If new or worsening symptoms please do not hesitate to return the emergency department. Please call and schedule an appointment with Dr. Oakley as soon as you are able. Clinical Impressions Clinical Impression: Chest discomfort Discharge ED Provider: Uday Pyle [facility] <Maurice Gee MD - Last Filed: 01/11/24 16:21> General Chief Complaint: Chest Pain Stated Complaint: Chest Pain Time Seen by Provider: 01/11/24 13:40 Mode of Arrival: EMS Source of Information: Patient Limitations: No Limitations Description of Symptoms (Recalled from ER Triage Doc. by RN): Pt reports centralized chest pressure that started after eating and having an energy drink for lunch. 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 Aspirin and Nitro were given by EMS in route. History of Present Illness HPI narrative: Please note that above description of symptoms, in this electronic medical record under categorization of recalled from ER triage doctor by RN are reflective of an initial nursing assessment, however, is not reflective of my full history and physical exam that was personally taken and clarified. Consequentially, this preceding description of symptoms, which may include the patient's categorized chief complaint in the EMR, do not reflect my personal clinical impression, and the ultimate description of history of present illness and patient stated complaints should be deferred to this section of the note. Unless stated otherwise or congruent with this section of the note, additional signs, symptoms, or incongruence should be interpreted as inaccurate with my clinical impression. Related Data Home Medications Medication Instructions Recorded Confirmed omeprazole 40 mg capsule,delayed 40 mg PO DAILY Acid reflux 10/08/22 11/22/23 release calcium carbonate 550 mg chewable 1,100 mg PO BIDP PRN reflux 11/22/23 11/22/23 tablet Previous Rx's Medication Instructions Recorded famotidine 20 mg tablet 20 mg PO BID 6 weeks #84 tabs 11/22/23 famotidine 40 mg tablet 40 mg PO BID 12 weeks #168 tabs 11/22/23 Allergies Allergy/AdvReac Type Severity Reaction Status Date / Time No Known Allergies Allergy Verified 04/01/23 09:56 ON LICENSE OF [facility] <Maurice Gee MD - Last Filed: 01/11/24 16:21> ON LICENSE OF [facility] Disclaimer: The information contained in this section may have been updated after the patient was seen, as this information can be updated by other users. 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 Anxiety Atrial fibrillation Chest pain Dyspnea GERD (gastroesophageal reflux disease) PAF (paroxysmal atrial fibrillation) Symptomatic PVCs Surgical History S/P ablation of atrial fibrillation Social History Smoking Status: Former smoker tobacco type: cigarettes packs per day: 1 second hand exposure: No alcohol intake: never substance use type: marijuana current occupational status: employed Travel in the last 8 weeks: [place] the [place] household members: spouse and children <Maurice Gee MD - Last Filed: 01/11/24 16:21> ROS Obtained: Yes All systems reviewed & no additional complaints except as documented Physical Exam <Maurice Gee MD - Last Filed: 01/11/24 16:21> General General appearance: alert Neck Neck exam: Present trachea midline Chest Chest inspection: Present normal inspection and symmetric chest wall rise Respiratory Respiratory exam: Present normal lung sounds bilaterally; Absent respiratory distress, wheezes, stridor, accessory muscle use or prolonged expiratory phase Cardiovascular Cardiovascular exam: Present regular rate and normal rhythm Extremities Exam Extremities exam: Absent edema Neurological Exam Neurological exam: Present alert, oriented X3 and CN II-XII intact Skin Skin exam: Present warm and dry; Absent cyanosis, diaphoresis or pallor HEART Score <Maurice Gee MD - Last Filed: 01/11/24 16:21> HEART Score HEART Score assessment performed?: Yes HEART Score: 1 <Uday Plye MD - Last Filed: 01/11/24 17:22> HEART Score History (anamnesis): Slightly suspicious ECG: Normal Age: 45-65 years Risk factors: 1-2 risk factors Troponin: </= normal limit HEART Score: 2 Critical Care <Maurice Gee MD - Last Filed: 01/11/24 16:21> Critical Care Time Critical Care Time: No Medical Decision Making <Maurice Gee MD - Last Filed: 01/11/24 16:21> Medical Records Medical records reviewed: Yes I reviewed the patient's medical records. Kofi Inquiry Pt receiving controlled substance: No Kofi was queried for this patient: No Vital Signs Vital Signs: 01/11/24 13:00 01/11/24 13:41 01/11/24 14:01 Pulse Rate 81 75 Pulse Rate [Right Brachial] 83 Respiratory Rate 16 15 16 Blood Pressure 129/86 116/74 Blood Pressure [Right Arm] 132/87 Blood Pressure Mean 94 88 Blood Pressure Mean [Right Arm] 102 02 Sat by Pulse Oximetry 98 100 100 Oxygen Delivery Method Room Air Lab Data Labs: Lab Results 01/11/24 13:00: WBC 8.5, RBC 4.11 L, Hgb 12.8, Hct 38.5, MCV 93.9, MCH 31.1, MCHC 33.1, RDW 13.5, Plt Count 291, MPV 8.2, Neut % (Auto) 50.5, Lymph % (Auto) 40.6, [place] % (Auto) 4.8, Eos % (Auto) 3.3, Baso % (Auto) 0.9, Neut # (Auto) 4.3, Lymph # (Auto) 3.5, [place] # (Auto) 0.4, Eos # (Auto) 0.3, Baso # (Auto) 0.1, S odium 135 L, Potassium 3.5, Chloride 105, Carbon Dioxide 27, Anion Gap 6.5, BUN 14, Creatinine 0.70, Estimated Creat Clear 124, Estimated GFR 90, Est GFR ( Amer) 109, Glucose 98, Calcium 8.8, Magnesium 1.7, Total Bilirubin 0.2, AST 26, ALT 21, Alkaline Phosphatase 49, Troponin I < 0.01, NT-Pro-B Natriuret Pep 42.6, Total Protein 6.9, Albumin 3.9, Globulin 3.0, Albumin/Globulin Ratio 1.3, Lipase 66 01/11/24 13:20: Lactate 1.5 01/11/24 13:24: Urine Color Yellow, Urine Appearance Sl cloudy, Urine pH 7.0, Ur Specific [place] 1.020, Urine Protein Negative, Urine Glucose (UA) Negative, Urine Ketones Negative, Urine Blood Negative, Urine Nitrate Negative, Urine Bilirubin Negative, Urine Urobilinogen 0.2, Ur Leukocyte Esterase 1+ A, Urine RBC None, Urine WBC Occasional, Ur Squamous Epith Cells 5-10, Urine Bacteria Trace 01/11/24 15:54: Troponin I < 0.01 01/11/24 13:00 01/11/24 13:00 Response Orders (Tests/Meds): ED MEDICATIONS Discontinued Medications Generic Name Dose Route Start Last Admin Trade Name Freq PRN Reason Stop Dose Admin Magnesium Sulfate 2 gm in 50 mls @ 50 mls/hr 01/11/24 15:32 01/11/24 15:57 Magnesium Sulfate 2gm/50ml Premix IV 01/11/24 16:31 50 mls/hr ONCE ONE Administration ORDERS Category Date Time Status XR chest portable Stat Exams 01/11/24 13:01 Completed Complete Blood Count Auto Diff Stat Lab 01/11/24 13:00 Completed Comprehensive Metabolic Panel Stat Lab 01/11/24 13:00 Completed Lactic Acid Stat Lab 01/11/24 13:20 Completed Lipase Stat Lab 01/11/24 13:00 Completed Magnesium Stat Lab 01/11/24 13:00 Completed NT Pro Brain Natriuretic Pep. Stat Lab 01/11/24 13:00 Completed Troponin I Q3H Lab 01/11/24 15:54 Completed Troponin I Q3H Lab 01/11/24 19:15 Ordered Troponin I Stat Lab 01/11/24 13:00 Completed Urinalysis and Microscopic Stat Lab 01/11/24 13:24 Completed Urine Culture Stat Micro 01/11/24 13:24 Received MDM Narrative Medical Decision Narrative: Female history of anxiety presenting with chest discomfort. Started this before she got here. Feels like racing heart, pressure, did not radiate, no syncopal episode. States it feels similar to previous panic attacks, but was also told in the past that she had a minor heart attack, so she came in for further evaluation. Not currently having discomfort, other than intermittent palpitations. History was obtained via conversation with patient. On arrival, patient hemodynamically stable, alert, oriented x4, appropriate, GCS 15, moving all extremities spontaneously, pupils equal and reactive to light. Full physical exam performed and significant for anxious appearing woman who is in no acute distress. Regular rate and rhythm. Pulses equal and symmetric, lungs are clear to auscultation bilaterally, very well-appearing overall. Differential includes metabolic abnormality, endocrinologic abnormality, anxiety, dehydration, ACS, NM, among others. Independent interpretation of EKG shows sinus rhythm 80 beats a minute without ST or T wave changes concern for acute ischemia. [place] 118, QRS 81, QTc 411. No evidence of arrhythmia. She does have intermittent PVCs. Workup independently interpreted and significant for nonactionable CBC or chemistry, hCG negative. Initial troponin negative. Chest x-ray without acute cardiopulmonary airspace disease. See radiology read for full review of final results. Patient placed on continuous cardiac monitoring and continuous pulse ox with initial blood pressure 132/87, heart rate 83, saturation 98% on room air. Heart score 1. Patient was placed in observation beginning at 2 PM in order to evolving NM with delta and determine need for admission versus home-going. The patient was provided cardiac monitoring while awaiting results. Prior to reevaluation, care handed off to oncoming physician. Equipment Maintenance Technician disclaimer Much of this encounter note is an electronic vendor management consultant spoken language to printed text. Electronic vendor management consultant of the spoken language may permit errors. Although I have reviewed the note, some errors may still exist. <Uday Pyle MD - Last Filed: 01/11/24 17:22> Vital Signs Vital Signs: 01/11/24 13:00 01/11/24 13:41 01/11/24 14:01 Pulse Rate 81 75 Pulse Rate [Right Brachial] 83 Respiratory Rate 16 15 16 Blood Pressure 129/86 116/74 Blood Pressure [Right Arm] 132/87 Blood Pressure Mean 94 88 Blood Pressure Mean [Right Arm] 102 02 Sat by Pulse Oximetry 98 100 100 Oxygen Delivery Method Room Air Lab Data Labs: Lab Results 01/11/24 13:00: WBC 8.5, RBC 4.11 L, Hgb 12.8, Hct 38.5, MCV 93.9, MCH 31.1, MCHC 33.1, RDW 13.5, Plt Count 291, MPV 8.2, Neut % (Auto) 50.5, Lymph % (Auto) 40.6, [place] % (Auto) 4.8, Eos % (Auto) 3.3, Baso % (Auto) 0.9, Neut # (Auto) 4.3, Lymph # (Auto) 3.5, [place] # (Auto) 0.4, Eos # (Auto) 0.3, Baso # (Auto) 0.1, S odium 135 L, Potassium 3.5, Chloride 105, Carbon Dioxide 27, Anion Gap 6.5, BUN 14, Creatinine 0.70, Estimated Creat Clear 124, Estimated GFR 90, Est GFR ( Amer) 109, Glucose 98, Calcium 8.8, Magnesium 1.7, Total Bilirubin 0.2, AST 26, ALT 21, Alkaline Phosphatase 49, Troponin I < 0.01, NT-Pro-B Natriuret Pep 42.6, Total Protein 6.9, Albumin 3.9, Globulin 3.0, Albumin/Globulin Ratio 1.3, Lipase 66 01/11/24 13:20: Lactate 1.5 01/11/24 13:24: Urine Color Yellow, Urine Appearance Sl cloudy, Urine pH 7.0, Ur Specific [place] 1.020, Urine Protein Negative, Urine Glucose (UA) Negative, Urine Ketones Negative, Urine Blood Negative, Urine Nitrate Negative, Urine Bilirubin Negative, Urine Urobilinogen 0.2, Ur Leukocyte Esterase 1+ A, Urine RBC None, Urine WBC Occasional, Ur Squamous Epith Cells 5-10, Urine Bacteria Trace 01/11/24 15:54: Troponin I < 0.01 Response Orders (Tests/Meds): ED MEDICATIONS Discontinued Medications Generic Name Dose Route Start Last Admin Trade Name Freq PRN Reason Stop Dose Admin Magnesium Sulfate 2 gm in 50 mls @ 50 mls/hr 01/11/24 15:32 01/11/24 15:57 Magnesium Sulfate 2gm/50ml Premix IV 01/11/24 16:31 50 mls/hr ONCE ONE Administration ORDERS Category Date Time Status XR chest portable Stat Exams 01/11/24 13:01 Completed Complete Blood Count Auto Diff Stat Lab 01/11/24 13:00 Completed Comprehensive Metabolic Panel Stat Lab 01/11/24 13:00 Completed Lactic Acid Stat Lab 01/11/24 13:20 Completed Lipase Stat Lab 01/11/24 13:00 Completed Magnesium Stat Lab 01/11/24 13:00 Completed NT Pro Brain Natriuretic Pep. Stat Lab 01/11/24 13:00 Completed Troponin I Q3H Lab 01/11/24 15:54 Completed Troponin I Q3H Lab 01/11/24 19:15 Ordered Troponin I Stat Lab 01/11/24 13:00 Completed Urinalysis and Microscopic Stat Lab 01/11/24 13:24 Completed Urine Culture Stat Micro 01/11/24 13:24 Received MDM Narrative Medical Decision Narrative: Female history of anxiety presenting with chest discomfort. Started this before she got here. Feels like racing heart, pressure, did not radiate, no syncopal episode. States it feels similar to previous panic attacks, but was also told in the past that she had a minor heart attack, so she came in for further evaluation. Not currently having discomfort, other than intermittent palpitations. History was obtained via conversation with patient. On arrival, patient hemodynamically stable, alert, oriented x4, appropriate, GCS 15, moving all extremities spontaneously, pupils equal and reactive to light. Full physical exam performed and significant for anxious appearing woman who is in no acute distress. Regular rate and rhythm. Pulses equal and symmetric, lungs are clear to auscultation bilaterally, very well-appearing overall. Differential includes metabolic abnormality, endocrinologic abnormality, anxiety, dehydration, ACS, NM, among others. Independent interpretation of EKG shows sinus rhythm 80 beats a minute without ST or T wave changes concern for acute ischemia. [place] 118, QRS 81, QTc 411. No evidence of arrhythmia. She does have intermittent PVCs. Workup independently interpreted and significant for nonactionable CBC or chemistry, hCG negative. Initial troponin negative. Chest x-ray without acute cardiopulmonary airspace disease. See radiology read for full review of final results. Patient placed on continuous cardiac monitoring and continuous pulse ox with initial blood pressure 132/87, heart rate 83, saturation 98% on room air. Heart score 1. Patient was placed in observation beginning at 2 PM in order to evolving NM with delta and determine need for admission versus home-going. The patient was provided cardiac monitoring while awaiting results. Prior to reevaluation, care handed off to oncoming physician. With department: Upon assumption of care patient was hemodynamically stable. Serial troponins are undetectably low. Workup is otherwise nonactionable. Upon repeat evaluation patient was well-appearing and is appropriate for discharge at this time. Equipment Maintenance Technician disclaimer Much of this encounter note is an electronic vendor management consultant spoken language to printed text. Electronic vendor management consultant of the spoken language may permit errors. Although I have reviewed the note, some errors may still exist.
[2024-01-11 14:14] LABS: Bacteria,Urine Trace /lpf; WBC,Urine Occasional #/hpf (0-3)
[2024-01-11 14:41] LABS: Magnesium 1.7 mg/dl (1.6-2.3)
[2024-01-11] MEDS: MAGNESIUM SULFATE IN WATER 2 GM/50 ML PIGGYBACK IV (15:57)
[2024-01-11 16:29] LABS: Troponin I < 0.01 ng/ml (0.00-0.034)
== END 2024-01-11 17:31 | disposition home or self-care (01) ==
PROVIDERS: Emergency Medicine; Emergency Provider Emergency Medicine
DX: R07.89 Other chest pain (principal); I49.3 Ventricular premature depolarization; B96.89 Other specified bacterial agents as the cause of diseases classified elsewhere; K21.9 Gastro-esophageal reflux disease without esophagitis; F41.9 Anxiety disorder, unspecified; Z86.79 Personal history of other diseases of the circulatory system
CPT/HCPCS: 71045; 80053; 81001; 83605; 83690; 83735; 83880; 84484; 85025; 87086; 93005; 96365; 99284; J3475

== ENCOUNTER 2024-01-13 12:32 | Outpatient (CLI) | payer OTHER, SELFPAY | END 2024-01-13 23:59 | disposition home or self-care (01) | LOC: RT 12:33 | PROVIDERS: Visit Provider Physician Assistant | DX: R00.2 Palpitations (principal) | CPT/HCPCS: 93225; 93227 ==

== ENCOUNTER 2024-03-07 07:42 | Outpatient (CLI) | payer OTHER, SELFPAY ==
--- NOTE | 2024-03-07 07:46 | CA_ITS ---
APPROVED REPORT EXAM: Comprehensive 2D, Doppler, and color-flow Echocardiogram Internet Assessor: Yamini Lucas RVT Ht: 5 ft 7 in Wt: 189lbs BSA: 1.97 BP: 113/73 mmHg Indications: SOA,EDEMA,PALPS,ASIYA,A-FIB WITH ABLATION 2D Dimensions LA Volume 80.20 mL LA Volume Index 40.51 mL/m2 (M/F) 16-34 M-Mode Dimensions RVDd 2.54 cm (0.9-2.6) LA Diam 3.54 cm (1.9-4.0) LVDd 5.12 cm (3.5-5.7) LVDs 3.45 cm (3.5-5.7) IVSd 1.18 cm (0.6-1.1) PWd 0.57 cm (0.6-1.1) EF (Teich) 60.70% FS 32.60% EDV (Teich) 124.90 mL TAPSE 1.86 (<1.7) ESV (Teich) 49.10 mL LV Diastology E Decel Time 180 (160-240 msec) E/A Ratio 0.9 Aortic Valve MITZI Index 1.34 cm2/m2 AoV Peak Garrett. 113.0 (50-130 cm/s) AO Peak GR. 5.10 mmHg AO Mean GR. 3.10 (<5 mmHg) AO VTI 18.6 (18-25 cm) MITZI (VTI) 2.71 (2.5-4.5 cm2) Mitral Valve MV E Max Garrett. 52.0 (40-130 cm/s) MV A Velocity 59.0 (40-130 cm/s) E/A Ratio 0.88 MV PHT 53.0 ms Pulmonary Valve PV Peak Velocity 85.0 (50-150 cm/s) Tricuspid Valve TR P. Velocity 305.00 cm/s RAP Estimate 10.00 mmHg RVSP 47.30 mmHg Left Ventricle The left ventricle is normal size. The left ventricular systolic function is low normal. There is increased LV wall thickness. There is normal LV segmental wall motion. The left ventricular diastolic function is normal. LVEF is 50%. Right Ventricle The right ventricle is normal size. The right ventricular systolic function is normal. Atria Left atrium is mildly dilated. The right atrium size is normal. There is no Doppler evidence of interatrial shunt. Aortic Valve The aortic valve opens well. There is no aortic valvular stenosis. No aortic regurgitation is present. Mitral Valve Bileaflet mitral valve prolapse is present. No evidence of mitral valve stenosis. Mild mitral regurgitation. Tricuspid Valve The tricuspid valve leaflets are thin and pliable. Trace tricuspid regurgitation. There is insufficient TR jet to estimate RVSP. Pulmonic Valve The pulmonary valve is normal in structure. Trace pulmonic regurgitation. Great Vessels The aortic root is normal in size. The ascending aorta is not well-visualized. IVC is normal in size and collapses >50% with inspiration. Pericardium There is no pericardial effusion. Other Information Study Quality: Fair Conclusion Low normal LV systolic function (LVEF 50%). Mild LA dilation. Bileaflet MV prolapse is present. Mild MR. Electronically signed by : Alcira Gardner MD 03/13/2024 12:55:53
[2024-03-07 08:53] LABS: Basophils # 0.1 K/mm3 (0-0.2); Eosinophils # 0.2 K/mm3 (0.0-0.4); Eosinophils % 2.5 % (0.1-12.0); Hematocrit 42.6 % (37.0-47.0); Hemoglobin 13.5 g/dL (12.2-16.2); Lymphocytes # 2.2 K/mm3 (0.7-4.5); Lymphocytes % 31.3 % (10-50); Mean Corpuscular HGB Conc 31.7 g/dL (31.8-35.4); Mean Corpuscular Hemoglobin 30.7 pg (27.0-31.2); Mean Corpuscular Volume 96.9 fl (81-99); Mean Platelet Volume 8.4 fl (7.4-10.4); Monocytes # 0.4 K/mm3 (0.1-1.0); Monocytes % 5.3 % (1.7-9.3); Neutrophils # 4.3 K/mm3 (1.8-7.8); Neutrophils % 59.8 % (37.0-80.0); Platelet Count 335 K/mm3 (142-424); Red Cell Distribution Width 13.8 % (11.5-17.5); White Blood Count 7.1 K/mm3 (4.8-10.8)
[2024-03-07 09:56] LABS: Alanine Aminotransferase 14 U/L (12-78); Albumin Level 3.8 g/dl (3.5-5.0); Alkaline Phosphatase 42 U/L (38-126); Anion Gap 6.5 mEq/L (5-15); Aspartate Amino Transferase 25 U/L (14-36); Bilirubin,Direct 0.2 mg/dl (0.0-0.4); Bilirubin,Indirect 0.3 mg/dL (0.0-0.9); Bilirubin,Total 0.5 mg/dl (0.2-1.3); Bilirubin,Unconjugated 0.3 mg/dL (0.0-1.1); Blood Urea Nitrogen 10 mg/dl (7-17); Carbon Dioxide 25 mmol/L (22.0-30.0); Chloride 107 mmol/L (98-107); Chol/HDL Ratio 2.6 (1-3.5); Cholesterol 167 mg/dl (140-200); Estimated Glomerular Filt Rate 133 ml/min (>60); GFR (African American) 161 ML/MIN (>60); Glucose 90 mg/dl (74-100); HDL Cholesterol 64 mg/dl (40-60); Magnesium 1.8 mg/dl (1.6-2.3); Potassium 4.5 mmoL/L (3.5-5.1); Sodium 134 mmol/L (136-145); Total Protein,Serum 6.9 g/dl (6.3-8.2); Triglycerides 75 mg/dl (30-150); VLDL Cholesterol 15 mg/dL (0-40)
[2024-03-07 10:05] LABS: NT Pro Brain Natriuretic Pep. 35.5 pg/mL (0-125)
[2024-03-07 10:07] LABS: Direct LDL Cholesterol 77.21 mg/dL (100-129)
[2024-03-07 10:13] LABS: Free T4 (Free Thyroxine) 0.88 ng/dl (0.78-2.19)
[2024-03-07 10:26] LABS: Thyroid Stimulating Hormone 3.31 uIU/mL (0.465-4.68)
== END 2024-03-07 23:59 | disposition home or self-care (01) ==
LOC: RT 07:44
PROVIDERS: Visit Provider Physician Assistant
DX: R00.2 Palpitations (principal); I49.3 Ventricular premature depolarization; R06.09 Other forms of dyspnea; R60.9 Edema, unspecified
CPT/HCPCS: 36415; 80048; 80061; 80076; 83735; 83880; 84439; 84443; 85025; 93306

== ENCOUNTER 2024-04-26 09:03 | Emergency (ER) | payer OTHER, SELFPAY ==
[2024-04-26 09:27] VITALS: BP 131/69; PULSE 83; RESP 20; TEMP 37.1; O2SAT 100; BMI 29.7
[2024-04-26 09:32] LABS: UTC Strep Screen (Rapid) Negative (Negative)
--- NOTE | 2024-04-26 10:03 | EXP.UTC ---
Discharge Plan Disposition Patient Disposition: Home, Self-Care Condition: Good Prescriptions Prescriptions: New azithromycin 250 mg tablet 250 mg PO DIRECTED Qty: 6 0RF Rx Instructions: Take two (2) tablets on day #1, then one (1) tablet day #2 thru #5 No Action metoprolol succinate [Toprol XL] 25 mg tablet extended release 24 hr 25 mg PO DAILY PRN Referrals Follow up/Referrals: Provider,Referral, MD [Primary Care Provider] - See instructions Activity Restrictions/Add. Instructions Additional Instructions/Restrictions: Start antibiotics today be sure to take it as ordered with the full length of time although you should start feeling better in 24-48 hours. Change toothbrush and toothpaste 24-48 hours after starting antibiotics Tylenol or Motrin as needed for fever or pain Encourage fluids, water, Gatorade, Powerade, try cold fluids, popsicles, ice cream will make it feel better You are contagious for 24 hours. Avoid kissing anyone, no eating or drinking after anyone. You are contagious. Follow-up the ER for new or worsening symptoms or no noticeable improvement over the next 24-48 hours. Follow-up with PCP this week. Clinical Impressions Clinical Impression: Strep sore throat Instructions Patient Instructions: DI for Strep Throat Print Language Print Language: Burkinan Discharge ED Provider: Norris ([facility])Genna [facility] [place] HPI General Stated complaint: sore throat Mode of Arrival: Ambulatory Source of Information: Patient Time Seen by Provider: 04/26/24 09:38 Description of Symptoms (Recalled from Triage Doc. by RN): SORE THROAT HEENT Symptoms (Recalled from RN notes): Yes Resp Symptoms (Recalled from RN notes): No Skin Symptoms (Recalled from RN notes): No MS Symptoms (Recalled from RN notes): No Functional Status (Recalled from RN notes): WNL History of Present Illness Provider Complaint: 43-year-old female presents for sore throat and hoarseness for 4 days. Patient states painful to swallow. Related Data Home Medications ?Medication ?Instructions ?Recorded ?Confirmed metoprolol succinate 25 mg 25 mg PO DAILY PRN 04/03/24 tablet,extended release 24 hr (Toprol XL) Previous Rx's ?Medication ?Instructions ?Recorded azithromycin 250 mg tablet 250 mg PO DIRECTED #6 tabs 04/26/24 Allergies Allergy/AdvReac Type Severity Reaction Status Date / Time No Known Allergies Allergy Verified 04/03/24 14:51 Worker's Comp Is this a Worker's Comp case?: No [facility] Disclaimer: The information contained in this section may have been updated after the patient was seen, as this information can be updated by other users. 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) Smoking Status: Former smoker tobacco type: cigarettes packs per day: 1 second hand exposure: No alcohol intake: never substance use type: marijuana current occupational status: employed Travel in the last 8 weeks: [place] the [place] household members: spouse and children ROS Obtained: Yes Systems reviewed as appropriate & no additional complaints except as documented ENT Ears, Nose, Mouth, and Throat: Reports system reviewed and no additional complaints, except as documented, Reports hoarseness and Reports sore throat Physical Exam General General appearance: alert and in no apparent distress Expanded ENT Exam Throat exam: Present tonsillar erythema, tonsillomegaly and tonsillar exudate Respiratory Respiratory exam: Present normal lung sounds bilaterally Cardiovascular Cardiovascular exam: Present regular rate and normal rhythm Neurological Exam Neurological exam: Present alert and oriented X3 Skin Skin exam: Present warm and intact Medical Decision Making Medical Records Medical records reviewed: Yes I reviewed the patient's medical records. Screening: Per USPSTF and CDC recommendations, given the prevalence of disease in our region, it is our hospital?s policy to screen for HIV and viral Hepatitis for all patients aged 18 and over and those with ongoing risk factors. Kofi Inquiry Pt receiving controlled substance: No Kofi was queried for this patient: No Vital Signs: 04/26/24 09:27 Temperature 98.7 F Temperature Source Oral Pulse Rate [Left Brachial] 83 Respiratory Rate 20 Blood Pressure [Left Arm] 131/69 Blood Pressure Mean [Left Arm] 89 02 Sat by Pulse Oximetry 100 Lab Data Lab results reviewed: Yes I reviewed the patient's lab results. Lab Results 04/26/24 09:26: Strep Scn Rapid Clinic Negative Orders (Tests/Meds): ORDERS Category Date Time Status Strep Screen Confirmation Stat Micro 04/26/24 09:26 Received
[2024-04-26 10:07] VITALS: BP 131/69; PULSE 83; RESP 20; TEMP 37.1
== END 2024-04-26 10:13 | disposition home or self-care (01) ==
PROVIDERS: Emergency Provider Nurse Practitioner Family
DX: J02.0 Streptococcal pharyngitis (principal)
CPT/HCPCS: 87880; 99213; G0381

== ENCOUNTER 2024-10-07 19:28 | Outpatient (CLI) | payer OTHER, SELFPAY ==
[2024-10-11 15:14] LABS: Albumin, U 14.5 % (.); Alpha-1-Globulin, U 9.5 % (.); Beta Globulin, U 29.7 % (.); Gamma Globulin, U 26.3 % (.); M-Spike, % Not Observed % (Not Observed); Prot,24hr calculated 286 mg/24 hr (30-150); Protein,Total,Urine 11.9 mg/dL (Not Estab.)
[2024-10-11 16:07] LABS: PDF: SCANNED IMAGE
== END 2024-10-07 23:59 | disposition home or self-care (01) ==
LOC: LAB 19:29
PROVIDERS: Visit Provider Physician Assistant
DX: R60.0 Localized edema (principal); R80.9 Proteinuria, unspecified; R00.2 Palpitations; F41.9 Anxiety disorder, unspecified
CPT/HCPCS: 84156; 84166

== ENCOUNTER 2024-10-23 12:18 | Outpatient (CLI) | payer OTHER, SELFPAY ==
--- NOTE | 2024-10-23 13:00 | US_ITS ---
FINAL REPORT CLINICAL HISTORY: Proteinuria FINDINGS: RENAL ULTRASOUND Ultrasound images of the kidneys were obtained. Limited images of the liver parenchyma demonstrates normal echogenicity. The right kidney measures 10.3 cm in length. It is normal echogenicity. There is no hydronephrosis. The left kidney measures 9.6 cm in length. It is normal echogenicity. There is no hydronephrosis. IMPRESSION: Normal renal ultrasound. Reviewed, Interpreted and Dictated by No Addison MD Transcribed by Norma Beckford Authenticated and [facility]
--- NOTE | 2024-10-23 13:06 | CA_ITS ---
APPROVED REPORT EXAM: Comprehensive 2D, Doppler, and color-flow Echocardiogram Vascular Specialists: Giovanna Sanders RT(R) Ht: 5 ft 7 in Wt: 203lbs BSA: 2.04 BP: 136/83 mmHg Indications: Shortness of Breath, Peripheral Edema, PAF, GERD, AFIB, MVP, ASIYA, Ablation 2D Dimensions LVEF (Lyon's) 57.60 % LV Volume 167.00 mL LV Volume Index 81.837221 mL/m2 F: 29 - 61 LA Volume 45.10 mL LA Volume Index 22.655039 mL/m2 (M/F) 16-34 EF AP4 69.10 % EF AP2 28.6 % EF BP 57.6 % GL Strain -17.9 % M-Mode Dimensions RVDd 3.58 cm (0.9-2.6) LA Diam 3.31 cm (1.9-4.0) LVDd 5.31 cm (3.5-5.7) LVDs 3.90 cm (3.5-5.7) IVSd 0.72 cm (0.6-1.1) PWd 0.80 cm (0.6-1.1) EF (Teich) 51.50% FS 26.60% EDV (Teich) 135.90 mL ESV (Teich) 65.90 mL LV Diastology E Decel Time 177 (160-240 msec) E/A Ratio 1.41 Mitral Valve MV E Max Garrett. 69.0 (40-130 cm/s) MV A Velocity 49.0 (40-130 cm/s) E/A Ratio 1.41 MV PHT 52.0 ms Left Ventricle The left ventricle is normal size. The left ventricular systolic function is normal. The left ventricular ejection fraction is within the normal range. There is normal left ventricular wall thickness. There is normal LV segmental wall motion. The left ventricular diastolic function is normal. LVEF is 55%. Right Ventricle The right ventricle is normal size. The right ventricular systolic function is normal. Atria The left atrium size is normal. The right atrium size is normal. There is no Doppler evidence of interatrial shunt. Aortic Valve Aortic valve opens well. There is no aortic valvular stenosis. No aortic regurgitation is present. Mitral Valve Mild bileaflet mitral valve prolapse is present. No evidence of mitral annular disjunction. No evidence of mitral valve stenosis. Mild mitral regurgitation. Tricuspid Valve Tricuspid valve is grossly normal in structure and function. Trace tricuspid regurgitation. There is insufficient TR jet to estimate RVSP. Pulmonic Valve The pulmonary valve is normal in structure. Trace pulmonic regurgitation. Great Vessels The aortic root is normal in size. IVC is normal in size and collapses >50% with inspiration. Pericardium There is no pericardial effusion. Other Information Study Quality: Fair Conclusion Normal biventricular systolic function. Mild bileaflet MV prolapse. Mild MR. Electronically signed by : Alcira Gardner MD 10/24/2024 11:18:37
[2024-10-23 13:20] LABS: Anion Gap 12.5 mEq/L (5-15); Blood Urea Nitrogen 16 mg/dl (7-17); Calcium 9.3 mg/dl (8.4-10.2); Carbon Dioxide 26 mmol/L (22.0-30.0); Chloride 102 mmol/L (98-107); Estimated Glomerular Filt Rate 90 ml/min (>60); GFR (African American) 109 ML/MIN (>60); Glucose 92 mg/dl (74-100); Potassium 4.5 mmoL/L (3.5-5.1); Sodium 136 mmol/L (136-145)
[2024-10-23 16:05] LABS: Hemoglobin A1C 5.4 % (4.0-6.0)
== END 2024-10-23 23:59 | disposition home or self-care (01) ==
LOC: RAD 12:19
PROVIDERS: Visit Provider Physician Assistant
DX: R60.0 Localized edema (principal); I34.1 Nonrheumatic mitral (valve) prolapse; I49.3 Ventricular premature depolarization; K21.9 Gastro-esophageal reflux disease without esophagitis; R00.2 Palpitations; F41.9 Anxiety disorder, unspecified; G47.33 Obstructive sleep apnea (adult) (pediatric); R80.9 Proteinuria, unspecified; I48.0 Paroxysmal atrial fibrillation; R06.09 Other forms of dyspnea
CPT/HCPCS: 36415; 76770; 80048; 83036; 93306

== ENCOUNTER → 2024-10-31 07:01 | Outpatient (CLI) | payer OTHER, SELFPAY | LOC: SL 07:02 | PROVIDERS: PCP Physician Assistant; Visit Provider Physician Assistant | DX: G47.33 Obstructive sleep apnea (adult) (pediatric) (principal); R60.0 Localized edema | CPT/HCPCS: G0399 ==

== ENCOUNTER 2024-11-23 10:39 | Emergency (ER) | payer OTHER, SELFPAY ==
[2024-11-23 10:43] VITALS: BP 132/97; PULSE 92; O2SAT 98
[2024-11-23 10:45] VITALS: BP 132/97; PULSE 91; RESP 15; TEMP 36.7; O2SAT 98; BMI 31.3
--- NOTE | 2024-11-23 10:48 | ED_ITS ---
Discharge Plan Disposition Patient Disposition: Home, Self-Care Condition: Fair Prescriptions Prescriptions: New amoxicillin-pot clavulanate 875-125 mg tablet 1 tab PO BID Qty: 14 0RF No Action potassium chloride 20 mEq tablet extended release 20 meq PO DAILY Qty: 30 2RF furosemide [Lasix] 40 mg tablet 40 mg PO DAILY Qty: 30 5RF Referrals Follow up/Referrals: Provider,Referral, [Primary Care Provider] - See instructions Clinical Impressions Clinical Impression: Pain, dental Print Language Print Language: Cuban Discharge ED Provider: Yonny Wray General Adult HPI General Chief complaint: Dental/Oral Stated complaint: Tooth pain L side Time Seen by Provider: 11/23/24 10:47 History of Present Illness HPI narrative: Patient is a 43-year-old female with history of A-fib not on anticoagulation, hypertension, hyperlipidemia, CHF. She presents today due to concerns for dental pain. She reports she felt fine yesterday. Woke up this morning and had left mandibular incisor pain. Swelling. Worse when she attempts to chew or eat a solid food. She is denying any drainage from the area. Denies any fevers. She denies any difficulty swallowing or difficulty breathing. Denies any plain on the floor of the mouth. Denies any chest pain or shortness of breath. Called her dentist and unable to get her until next week so came here. Has tried squirting the capsule of ibuprofen on her tooth, but has not actually taken any Tylenol or ibuprofen. Has been using Orajel with minimal relief. Related Data Previous Rx's ?Medication ?Instructions ?Recorded potassium chloride 20 mEq 20 meq PO DAILY #30 tabs 10/05/24 tablet,extended release furosemide 40 mg tablet (Lasix) 40 mg PO DAILY #30 tabs 11/09/24 amoxicillin 875 mg-potassium 1 tab PO BID #14 tabs 11/23/24 clavulanate 125 mg tablet Allergies Allergy/AdvReac Type Severity Reaction Status Date / Time No Known Allergies Allergy Verified 11/09/24 14:48 [facility] Disclaimer: The information contained in this section may have been updated after the patient was seen, as this information can be updated by other users. 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 Symptomatic PVCs PAF (paroxysmal atrial fibrillation) GERD (gastroesophageal reflux disease) Anxiety Atrial fibrillation Dyspnea Chest pain Surgical History S/P ablation of atrial fibrillation Social History Smoking Status: Former smoker tobacco type: cigarettes packs per day: 1 second hand exposure: No alcohol intake: never substance use type: marijuana current occupational status: employed Travel in the last 8 weeks?: Inside the [place] household members: spouse and children Have you lived/traveled outside US in past 30 days?: No Contact w/someone who lives/traveled outside US past 30 days?: No Exposure to someone with infectious disease in past 14 days?: No Do you have a fever (greater than 100.4 F or 38 C)?: No Have you tested positive for COVID-19?: No Exposed to someone with COVID-19 in past 14 days?: No Do you have a sore throat?: No Do you have a cough?: No Do you have any weakness?: No Do you have any diarrhea?: No Are you experiencing any unusual bleeding?: No Do you have any muscle aches/pain?: No Do you have any abdominal pain?: No Are you experiencing loss of taste or smell?: No Other 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 Have you received the Flu Vaccine for this season: No Have you received the Pneumonia Vaccine: No ROS Obtained: Yes All systems reviewed & no additional complaints except as documented Physical Exam General General appearance: alert and in no apparent distress Head Head exam: atraumatic and normocephalic Eye Eye exam: Present normal appearance ENT ENT exam: Present mucous membranes moist and other Expanded ENT Exam Open Mouth Image: 2 1. eroded tooth, erythema gingival, but no induration nor drainage. floor of the mouth not tender and no crepitus Chest Chest inspection: Present symmetric chest wall rise Respiratory Respiratory exam: Absent respiratory distress or stridor Cardiovascular Cardiovascular exam: Present regular rate and normal rhythm Abdominal Exam Abdominal exam: Absent distention Extremities Exam Extremities exam: Present normal inspection Neurological Exam Neurological exam: Present alert and oriented X3 Psychiatric Psychiatric exam: Present normal mood Skin Skin exam: Present warm and dry Medical Decision Making Medical Records Screening: Per USPSTF and CDC recommendations, given the prevalence of disease in our region, it is our hospital?s policy to screen for HIV and viral Hepatitis for all patients aged 18 and over and those with ongoing risk factors. Kofi Inquiry Pt receiving controlled substance: No Vital Signs: 11/23/24 10:43 11/23/24 10:45 11/23/24 11:01 Temperature 98.1 F Temperature Source Oral Pulse Rate 92 H 85 Pulse Rate [Right Radial] 91 H Respiratory Rate 15 Blood Pressure 132/97 H 131/81 Blood Pressure [Right Arm] 132/97 H Blood Pressure Mean [Right Arm] 108 Blood Pressure Source [Right Arm] Automatic Cuff Blood Pressure Position [Right Arm] Sitting 02 Sat by Pulse Oximetry 98 98 100 Oxygen Delivery Method Room Air Room Air Room Air Orders (Tests/Meds): ED MEDICATIONS Discontinued Medications Generic Name Dose Route Start Last Admin Trade Name Freq PRN Reason Stop Dose Admin Acetaminophen 1,000 mg 11/23/24 11:07 11/23/24 11:16 Acetaminophen 500mg Tab PO 11/23/24 11:08 1,000 mg ONCE ONE Administration Bupivacaine HCl 10 mg 11/23/24 11:15 11/23/24 11:17 Bupivacaine 0.5% 30ml Vial IJ 11/23/24 11:16 10 mg ONCE ONE Administration Ketorolac Tromethamine 15 mg 11/23/24 11:07 11/23/24 11:16 Ketorolac 30mg/Ml Vial IM 11/23/24 11:08 15 mg ONCE ONE Administration Lidocaine HCl 5 ml 11/23/24 11:07 11/23/24 11:16 Lidocaine 1% 10ml Mdv IJ 11/23/24 11:08 5 ml ONCE ONE Administration Lidocaine HCl 15 ml 11/23/24 11:38 Lidocaine 2% Viscous Nat 15ml Udc PO 11/23/24 11:39 ONCE ONE Medical Decision Narrative: In summary, this 43-year-old female presents to the emergency department today with dental pain. On initial evaluation patient is afebrile, hemodynamically stable and in no acute distress. On exam, is warm well-perfused with brisk capillary refill and full pulses in bilateral upper extremities. Regarding her oral exam, there is some scant erythema at the gingival margin around the incisor. Left mandibular. There is no induration or swelling. There is no pain or crepitus on the floor the mouth. The posterior oropharynx is clear with no erythema induration or swelling. She is able to range her neck without difficulty. Differential diagnosis includes but is not limited to. Periapical abscess, deep space abscess, Florentin's angina. Based on these concerns, I ordered considered ordering CT face, however clinically, her exam is very reassuring for a localized likely periapical abscess versus tooth erosion.. Ultimately, after shared decision-making with patient, we will proceed with a dental block here, antibiotics Augmentin outpatient and follow-up with dentistry for tooth extraction. Strict return precautions are discussed all questions answered patient amenable to plan and discharge. After her Toradol and Tylenol here, her pain was improved Patient received Tylenol, Toradol, dental balls, dental block for treatment. On reassessment patient report improvement in her pain.. Of note, social determinants of health include inability to attain a specialist follow-up in a timely manner. At this time it was felt that the patient was safe to be discharged home. The patient was in agreement with this plan. The patient was given strict return precautions prior to being discharged from the emergency department. Critical Care Critical Care Time Critical Care Time: No
[2024-11-23 11:01] VITALS: BP 131/81; PULSE 85; O2SAT 100
[2024-11-23] MEDS: KETOROLAC 30MG/ML VIAL 15 MG IM (11:16)
[2024-11-23] MEDS: ACETAMINOPHEN 500MG TAB 1000 MG PO (11:16)
[2024-11-23] MEDS: LIDOCAINE 1% 10ML MDV 5 ML IJ (11:16)
[2024-11-23] MEDS: BUPIVACAINE 0.5% 30ML VIAL 10 MG IJ (11:17)
[2024-11-23] MEDS: LIDOCAINE 2% VISCOUS SOL 15ML UDC 15 ML PO (11:44)
[2024-11-23 11:49] VITALS: BP 140/66; PULSE 94; RESP 15; TEMP 36.7; O2SAT 99
== END 2024-11-23 11:50 | disposition home or self-care (01) ==
PROVIDERS: Emergency Provider Emergency Medicine
DX: K08.89 Other specified disorders of teeth and supporting structures (principal); Z87.891 Personal history of nicotine dependence
CPT/HCPCS: 96372; 99283; J0665; J1885; J2003

== ENCOUNTER 2024-11-24 19:02 | Emergency (ER) | payer OTHER, SELFPAY ==
[2024-11-24 19:23] VITALS: BP 126/88; PULSE 98; RESP 16; TEMP 36.8; O2SAT 98; BMI 31.3
[2024-11-24 19:35] VITALS: BP 148/113; PULSE 55; O2SAT 98
[2024-11-24 20:00] VITALS: BP 137/95; PULSE 98; O2SAT 98
[2024-11-24] MEDS: BUPIVACAINE 0.5% 30ML VIAL 15 MG IJ (20:00)
[2024-11-24] MEDS: LIDOCAINE 1% 5ML PF VIAL IM (20:01)
[2024-11-24] MEDS: cefTRIAXone 1GM VIAL 1 GM IM (20:01)
--- NOTE | 2024-11-24 20:11 | HMH.EDGENADL ---
Discharge Plan Disposition Patient Disposition: Home, Self-Care Prescriptions Prescriptions: New clindamycin HCl 150 mg capsule 450 mg PO Q8H 7 Days Qty: 63 0RF chlorhexidine gluconate [Peridex] 0.12 % mouthwash 15 ml buccal TID Qty: 1500 0RF Rx Instructions: swish and spit three times daily No Action potassium chloride 20 mEq tablet extended release 20 meq PO DAILY Qty: 30 2RF furosemide [Lasix] 40 mg tablet 40 mg PO DAILY Qty: 30 5RF amoxicillin-pot clavulanate 875-125 mg tablet 1 tab PO BID Qty: 14 0RF Referrals Follow up/Referrals: Provider,Referral, [Primary Care Provider] - See instructions Activity Restrictions/Add. Instructions Additional Instructions/Restrictions: Continue Augmentin. If not getting better after 72 hours, switch to clindamycin. Call your family doctor to establish care for this visit to the emergency department and schedule follow-up within 48 hours to ensure improvement. If you have any worsening of your condition or any other concerning signs or symptoms, return to the emergency department or your primary care doctor for further evaluation. Peridex rinse 3 times daily Clinical Impressions Clinical Impression: Periapical abscess Print Language Print Language: Danish Discharge ED Provider: Maurice Gee General Adult HPI General Chief complaint: Dental/Oral Stated complaint: L Facial Swelling Time Seen by Provider: 11/24/24 19:39 Mode of Arrival: Ambulatory Source of Information: Patient Description of Symptoms (Recalled from ER Triage Doc. by RN): Pt presents for evaluation of left sided dental pain and swelling x 2 days. Pt states she was seen here yesterday and was prescribed antibiotics and had a dental block History of Present Illness HPI narrative: Please note that above description of symptoms, in this electronic medical record under categorization of recalled from ER triage doctor by RN are reflective of an initial nursing assessment, however, is not reflective of my full history and physical exam that was personally taken and clarified. Consequentially, this preceding description of symptoms, which may include the patient's categorized chief complaint in the EMR, do not reflect my personal clinical impression, and the ultimate description of history of present illness and patient stated complaints should be deferred to this section of the note. Unless stated otherwise or congruent with this section of the note, additional signs, symptoms, or incongruence should be interpreted as inaccurate with my clinical impression. Related Data Previous Rx's ?Medication ?Instructions ?Recorded potassium chloride 20 mEq 20 meq PO DAILY #30 tabs 10/05/24 tablet,extended release furosemide 40 mg tablet (Lasix) 40 mg PO DAILY #30 tabs 11/09/24 amoxicillin 875 mg-potassium 1 tab PO BID #14 tabs 11/23/24 clavulanate 125 mg tablet chlorhexidine gluconate 0.12 % 15 ml buccal TID #1,500 mL 11/24/24 mouthwash (Peridex) clindamycin HCl 150 mg capsule 450 mg (3 x 150 mg) PO Q8H 7 days 11/24/24 #63 caps Allergies Allergy/AdvReac Type Severity Reaction Status Date / Time No Known Allergies Allergy Verified 11/09/24 14:48 [facility] Disclaimer: The information contained in this section may have been updated after the patient was seen, as this information can be updated by other users. 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 Symptomatic PVCs PAF (paroxysmal atrial fibrillation) GERD (gastroesophageal reflux disease) Anxiety Atrial fibrillation Dyspnea Chest pain Surgical History S/P ablation of atrial fibrillation Social History Smoking Status: Current every day smoker tobacco type: cigarettes packs per day: 1 second hand exposure: No alcohol intake: never substance use type: marijuana current occupational status: employed Travel in the last 8 weeks?: Inside the [facility] ([place]) household members: spouse and children Have you lived/traveled outside US in past 30 days?: No Contact w/someone who lives/traveled outside US past 30 days?: No Exposure to someone with infectious disease in past 14 days?: No Do you have a fever (greater than 100.4 F or 38 C)?: No Have you tested positive for COVID-19?: No Exposed to someone with COVID-19 in past 14 days?: No Do you have a sore throat?: No Do you have a cough?: No Do you have any weakness?: No Do you have any diarrhea?: No Are you experiencing any unusual bleeding?: No Do you have any muscle aches/pain?: No Do you have any abdominal pain?: No Are you experiencing loss of taste or smell?: No Other 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 Have you received the Flu Vaccine for this season: No Have you received the Pneumonia Vaccine: No ROS Obtained: Yes All systems reviewed & no additional complaints except as documented Physical Exam General General appearance: alert Head Head exam: atraumatic and normocephalic Eye Eye exam: Present normal appearance, PERRL and EOMI ENT ENT exam: Present other (Soft tissue swelling left mandible. No evidence of tonsillitis, exudate, pharyngeal erythema, uvular deviation, palatal swelling, trismus, external neck swelling, submental induration, dental abscess, angioedema, or other abnormal martínez pharyngeal findings) Neck Neck exam: Present normal inspection, full ROM and trachea midline Respiratory Respiratory exam: Absent respiratory distress, wheezes, stridor, accessory muscle use or prolonged expiratory phase Cardiovascular Cardiovascular exam: Present other (Pulses equal symmetric in upper and lower extremities) Abdominal Exam Abdominal exam: Present soft; Absent distention, tenderness or pulsatile mass Extremities Exam Extremities exam: Absent edema Neurological Exam Neurological exam: Present alert, oriented X3 and CN II-XII intact; Absent motor sensory deficit Skin Skin exam: Present warm and dry; Absent diaphoresis or erythema Medical Decision Making Medical Records Medical records reviewed: Yes I reviewed the patient's medical records. Screening: Per USPSTF and CDC recommendations, given the prevalence of disease in our region, it is our hospital?s policy to screen for HIV and viral Hepatitis for all patients aged 18 and over and those with ongoing risk factors. Kofi Inquiry Pt receiving controlled substance: No Kofi was queried for this patient: No Vital Signs: 11/24/24 19:23 11/24/24 19:35 Temperature 98.3 F Temperature Source Temporal Artery Scan Pulse Rate 55 L Pulse Rate [Right] 98 H Respiratory Rate 16 Blood Pressure 148/113 H Blood Pressure [Right Arm] 126/88 Blood Pressure Mean [Right Arm] 100 Blood Pressure Source [Right Arm] Automatic Cuff Blood Pressure Position [Right Arm] Sitting 02 Sat by Pulse Oximetry 98 98 Orders (Tests/Meds): ED MEDICATIONS Discontinued Medications Generic Name Dose Route Start Last Admin Trade Name Freq PRN Reason Stop Dose Admin Bupivacaine HCl 15 mg 11/24/24 19:51 11/24/24 20:00 Bupivacaine 0.5% 30ml Vial IJ 11/24/24 19:52 15 mg ONCE ONE Administration Ceftriaxone Sodium 1 gm 11/24/24 19:51 11/24/24 20:01 Ceftriaxone 1gm Vial IM 11/24/24 19:52 1 gm ONCE ONE Administration Lidocaine HCl 0 ml 11/24/24 19:51 11/24/24 20:01 Lidocaine 1% 5ml Pf Vial IM 11/24/24 19:52 5 ml ONCE ONE Administration Medical Decision Narrative: 43-year-old female presenting with broken tooth and jaw swelling. She states that she was seen yesterday for dental pain, but did not swelling at that time. Has taken 2 doses of Augmentin since yesterday and took [address] into the emergency department today, making 3 total. No fevers or chills, but tooth and jaw pain is bad enough that she is having difficulty eating. No voice changes, difficulty or pain with range of motion in neck, difficulty swallowing, pain with swallowing, or any other concerns. Has follow-up with her dentist on Wednesday next week, but came in for further evaluation. History was obtained via conversation with patient and significant other. On arrival, patient hemodynamically stable, alert, oriented x4, appropriate, GCS 15, moving all extremities spontaneously, pupils equal and reactive to light. Full physical exam performed and significant for uncomfortable appearing female who is in no acute distress holding the left side of her jaw. Soft tissue swelling left mandible. No evidence of tonsillitis, exudate, pharyngeal erythema, uvular deviation, palatal swelling, trismus, external neck swelling, submental induration, dental abscess, angioedema, or other abnormal martínez pharyngeal findings. No stridor, speaking full sentences, no floor of mouth elevation, tongue swelling, outward signs of redness or warmth, no obvious fluctuance. On multiple attempts, I do not see anything amenable to drainage on intraoral exam. Because this is consistent with periapical abscess with local inflammation and swelling, patient already on Augmentin, I feel this is appropriate. She was given 1 dose of IM ceftriaxone. Recommend she continue the Augmentin, if not better after 48 to 72 hours, start clindamycin, which will be sent to the pharmacy. For pain control, bupivacaine 0.5% was used for inferior alveolar nerve block. Reevaluation, patient feeling much better. Given patient presentation, workup, history, this most likely represents periapical abscess not amenable to drainage. Close return precautions were discussed with patient. I do not feel this is consistent with Florentin angina, or impending airway compromise given she is so well-appearing. She has appropriate follow-up, ability to return if things get worse, seems reliable. Appropriate for outpatient management. Because patient at baseline without signs or symptoms of clinical decompensation, deemed appropriate for discharge. Results were relayed to patient who voiced understanding and were agreeable to outpatient management and follow up. I discussed my clinical impression with patient and answered all questions. At this time, the evidence for any other entities in the differential is insufficient to warrant any further testing or ED observation. This was explained as well. Advisory was given that persistent or worsening symptoms require further evaluation. I confirmed the understanding of this discussion. Flour Distributor disclaimer Much of this encounter note is an electronic manufacturing teacher spoken language to printed text. Electronic manufacturing teacher of the spoken language may permit errors. Although I have reviewed the note, some errors may still exist. Critical Care Critical Care Time Critical Care Time: No
[2024-11-24 20:13] VITALS: BP 137/95; PULSE 105; RESP 18; TEMP 36.8; O2SAT 98
== END 2024-11-24 20:29 | disposition home or self-care (01) ==
PROVIDERS: Emergency Provider Emergency Medicine
DX: K04.7 Periapical abscess without sinus (principal); F17.210 Nicotine dependence, cigarettes, uncomplicated
CPT/HCPCS: 96372; 99284; J0665; J0696; J2003

== ENCOUNTER → 2024-12-19 19:50 | Outpatient (CLI) | payer OTHER, SELFPAY ==
--- OUTSIDE RECORDS SUMMARY | 2024-12-19 19:54 | XMS_ITS | Encounter Summary ---
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 Name Role Phone Unavailable Primary Care Provider Unavailabl e Encounter Details Date Type Department Care Team (Late st Contact Info) Description 01/03/2019 Transcribed Document [facility] Family Medicine [facility] [place] [address] ProviderGabby MD [address] [place] [address] Social History Tobacco Use Types Packs/Day Years Used Date Smoking Tobacco: Never Assessed Comments Unknown Sex and Gender Information Value Date Recorded Sex Assigned at Female 12/30/2021 7:57 PM CDT Legal Sex Female 7:57 PM CDT Gender Identity Female 12/30/2021 7:57 PM CDT Sexual Orientation Not on file documented as of this encounter Miscellaneous Notes * Cerner Conversion Note - Historical ProviderMD - 01/03/2019 6:29 PM CDT ED Assessment Entered On: 01/03/2019 18:40 EDT Performed On: 01/03/2019 18:38 EDT by CRISTIANO DIOR RN ED Quick Look Assessment Level of Consciousness : Alert, Awake Affect/Behavior : Appropriate, Calm, Cooperative Orientation : Oriented x 4 Skin Temperature : Warm Skin Description : Dry CRISTIANO DIOR RN - 01/03/2019 18:38 EDT ED General-Functional Assess Preferred Communication Mode : Verbal Communication Barrier : None Primary Language : Malagasy Any Spiritual/Cultural Needs or Requests : No Currently in Unsafe Situation : No CRISTIANO DIOR RN - 01/03/2019 18:38 EDT ED Psychosocial Assessment Affect/Behavior : Anxious CRISTIANO DIOR RN - 01/03/2019 18:38 EDT Social Habits Smoking Status : 10 or more cigarettes (1/2 pack or more)/day in last 30 days Smokeless Tobacco Status : Never Desires Tobacco Cessation Medication : No Reason for No Tobacco Cessation Medication : ED/procedural patient only Desires Tobacco Cessation Calc : 1 CRISTIANO DIOR RN - 01/03/2019 18:38 EDT Social History (As Of: 01/03/2019 18:40:03 EDT) Tobacco: Smoking Status Current every day smoker. Five or more cigarettes per day Smoking Frequency Within Last 30 Days. Use in Last 12 Months: Cigarettes. Years of Use: 16. Packs/Tins Daily: 1.5. (Last Updated: 04/05/2016 11:17:09 EDT by Seda Tomas, RN) Alcohol: Alcohol Use History No. (Last Updated: 04/05/2016 11:17:18 EDT by Seda Tomas, RN) Substance Abuse: Drug Use Hx: No. Use in Last 12 Months: No. (Last Updated: 04/05/2016 11:17:23 EDT by Seda Tomas, RN) EENT Assessment EENT Assessment WDL : CRISTIANO MONREAL RN - 01/03/2019 18:38 EDT Cardiovascular ASMT, ED Cardiovascular Assessment WDL : CRISTIANO MONREAL RN - 01/03/2019 18:38 EDT Respiratory Respiratory Assessment WDL : CRISTIANO MONREAL RN - 01/03/2019 18:38 EDT Gastrointestinal ED Gastrointestinal Assessment WDL : CRISTIANO MONREAL RN - 01/03/2019 18:38 EDT Genitourinary Assessment, ED Genitourinary Assessment WDL : CRISTIANO MONREAL RN - 01/03/2019 18:38 EDT Musculoskeletal Musculoskeletal Assessment WDL : CRISTIANO MONREAL RN - 01/03/2019 18:38 EDT Integumentary Assessment Skin Description : Dry Skin Temperature : Warm Integumentary Assessment WDL : WD Skin Turgor : Elastic, Good CRISTIANO DIOR RN - 01/03/2019 18:38 EDT Neurologic ASMT, ED Level of Consciousness : Alert, Awake Affect/Behavior : Appropriate, Calm, Cooperative Speech : Clear Orientation : Oriented x 4 Pupils Equal, Round, Reactive to Light : Yes Pupil Description, Left : Regular, Round Pupil Reaction, Left : Brisk Pupil Description, Right : Regular, Round Pupil Reaction, Right : Brisk Gait Assistance Level : Independent, complete Julia Coma Scale Link : Open GCS CRISTIANO DIOR RN - 01/03/2019 18:38 EDT Julia Coma Julia Best Motor Response : Obey commands Julia Best Verbal Response : Oriented [place] Eye Opening Response : Spontaneous Julia Coma Score : 15 CRISTIANO DIOR RN - 01/03/2019 18:38 EDT Electronically signed by [facility] Conversion Ticket Puller Cerner at 10/21/2022 6:25 PM CDT documented in this encounter Plan of Treatment Not on file documented as of this encounter Visit Diagnoses Not on filedocumented in this encounter
--- OUTSIDE RECORDS SUMMARY | 2024-12-19 19:54 | XMS_ITS | Encounter Summary ---
Author Organization [email or web address] Address [address] [place] [address] Care Team Providers Care Respiratory Therapy Instructor Name Role Phone Unavailable Primary Care Provider Unavailabl e Encounter Details Date Type Department Care Team (Late st Contact Info) Description 01/03/2019 Transcribed Document [facility] Family Medicine [facility] [place] [address] ProviderGabby MD [address] [place] [address] Social History Tobacco Use Types Packs/Day [...] ProviderMD - 01/03/2019 6:29 PM CDT ED Triage Entered On: 01/03/2019 18:36 EDT Performed On: 01/03/2019 18:34 EDT by CRISTIANO DIOR RN ED Triage Across the Room Triage Date/Time : 01/03/2019 18:34 EDT Chief Complaint : pt c/o anxious with chest pressure states has bad anxiety attacks CRISTIANO DIOR RN - 01/03/2019 18:34 EDT DCP GENERIC CODE Tracking Acuity : 2 - Emergent Tracking Group : [facility] ED [facility] CRISTIANO DIOR RN - 01/03/2019 18:34 EDT Mode of Arrival : Stretcher Transported to ED by : Ambulance/ALS EMS Service : [facility] To Room Via : Stretcher Accompanied By : Unaccompanied ED Vital Signs : Document Height & Weight : Document ED Allergies : Document ED Reason for Visit : Document Tetanus Immunization : Greater than 10 years CRISTIANO DIOR RN - 01/03/2019 18:34 EDT Infectious Disease History Infectious Disease History : None Fever/Chills Last 48 Hours : No Travel To Regions with Travel Advisories : No Travel Outside [place] Within Last 30 Days : No Contact With Traveler to Advisory Region : No Tuberculosis Symptoms : None CRISTIANO DIOR RN - 01/03/2019 18:34 EDT Vital Signs ED Temperature Mode : Fahrenheit Temperature, Fahrenheit : 98.5 Deg F ED Pain : Yes Clinical Temperature, C : 36.9 Deg C Oxygen Therapy Mode : Room air Peripheral Pulse Rate : 78 bpm Respiratory Rate : 18 Breaths/Min Systolic Blood Pressure : 138 mmHg Diastolic Blood Pressure : 90 mmHg Oxygen Saturation : 100 % CRISTIANO DIOR RN - 01/03/2019 18:34 EDT Allergy (As Of: 01/03/2019 18:36:37 EDT) Allergies (Active) No Known Medication Allergies Estimated Onset Date: Unspecified ; Created By: Seda Tomas RN; Reaction Status: Active ; Category: Drug ; Substance: No Known Medication Allergies ; Type: Allergy ; Updated By: Seda Tomas RN; Reviewed Date: 01/03/2019 18:36 EDT Diagnosis Control ED (As Of: 01/03/2019 18:36:37 EDT) Problems(Active) Anxiety (SNOMED CT :79225284 ) Name of Problem: Anxiety ; Recorder: BRIAN SHAH RN; Confirmation: Confirmed ; Classification: Medical ; Code: [id number] ; Contributor System: OBOOK ; Last Updated: 01/18/2018 20:19 EDT ; Life Cycle Date: 01/18/2018 ; Life Cycle Status: Active ; Vocabulary: SNOMED CT Irregular heart rate (SNOMED CT :324604798 ) Name of Problem: Irregular heart rate ; Recorder: BRIAN SHAH RN; Confirmation: Confirmed ; Classification: Medical ; Code: [id number] ; Contributor System: BubbleGabChart ; Last Updated: 01/18/2018 20:20 EDT ; Life Cycle Date: 01/18/2018 ; Life Cycle Status: Active ; Vocabulary: SNOMED CT NV (myocardial infarction) (SNOMED CT :15176039 ) Name of Problem: NV (myocardial infarction) ; Recorder: BRIAN SHAH RN; Confirmation: Confirmed ; Classification: Medical ; Code: [id number] ; Contributor System: OBOOK ; Last Updated: 01/18/2018 20:19 EDT ; Life Cycle Date: 01/18/2018 ; Life Cycle Status: Active ; Vocabulary: SNOMED CT Diagnoses(Active) Chest pressure Date: 01/03/2019 ; Diagnosis Type: Reason For Visit ; Confirmation: Complaint of ; Clinical Dx: Chest pressure ; Classification: Medical ; Clinical Service: Emergency medicine ; Code: PNED ; Probability: 0 ; Diagnosis Code: [id number] ED Height and Weight Height Source : Measured Height Entry Format : Nolan Height, Feet : 5 ft(Converted to: 152 cm, 60 Inch) Height, Inches : 6 Inch(Converted to: 0 ft 6 Inch, 15.24 cm) Clinical Height : 167.64 cm Weight Source, ED : Standing scale Weight Entry Format : Nolan Weight, Pounds : 160 lb Clinical Dosing Weight : 72.73 kg Body Surface Area (BSA) : 1.82 m2 Body Mass Index : 25.9 kg/m2 (HI) [place] Body Weight (IBW) : 58.88 kg CRISTIANO DIOR RN - 01/03/2019 18:34 EDT Pain Assessment Pain Scale Used : 0-10 Scale CRISTIANO DIOR RN - 01/03/2019 18:34 EDT Pain Scale Intensity : 6 CRISTIANO DIOR RN - 01/03/2019 18:34 EDT Image 4 - Images currently included in the form version of this document have not been included in the text rendition version of the form. documented in this encounter Plan of Treatment Not on file documented as of this encounter Visit Diagnoses Not on filedocumented in this encounter
--- OUTSIDE RECORDS SUMMARY | 2024-12-19 19:54 | XMS_ITS | Patient Health Record ---
Author Organization [facility] Physician Ced es Billing Info Address [address] [place] [id number] Support Name Relationship Address Phone Ghazala Richards Guarantor Unknown [phone] Allergies No Known Allergies Reason For Referral No Information Medications Medication SIG (Take, Route, Fr equency, Duration) Notes Start Date End Date Status Ibuprofen 800 MG 1 tablet with food o r milk as needed Orally every 8 hrs for 30 day(s) 06/03/2022 Active Methocarbamol 750 MG 1 tablet Orally BID for 30 day(s) 06/03/2022 Active Social History Tobacco Use: Social History Observation Description Date Details (start date - stop date) Current Smoker NA - NA Tobacco Status: Question Answer Notes Patient is a current every day smoker Section Notes: 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 [employer] Problems Problem Type SNOMED Code ICD Code Onset Dates Problem Status W/U Status Risk Notes Problem 929232964 Tear of medial meniscus of left knee, current, unspecified tear type, initial encounter (S83.242A) Active confirmed Plan Of Treatment Pending Test Test Name Order Date Basic Metabolic Panel([facility]) 07/07/19 CBC without Differential([facility]-CBCX) 09/2022 Pathology Handling Charge([facility]HC) 07/08 Insurance Providers Payer Name Payer Address Payer Phone Subscriber Number Group Number Insured Name Patient Relationship to Insured Coverage Start Date Coverage End Date [facility] [employer] [facility] [address] [place], [place] [id number] [phone] [id number] Ghazala Richards Self - patient is the insured 0 Medications Administered Medication Instructions Date of Administration Dosage Notes Jocy 06/03/2022 2 mL Medical (General) History 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 History ICD Code heart disease htn irregular heart beat Surgical History Surgery Date(Month/Year) ACL repair 2013 tubal 2004 gall bladder 2012 nicolasahlashin 2017 roberta recorder put in 2017
--- OUTSIDE RECORDS SUMMARY | 2024-12-19 19:54 | XMS_ITS | Encounter Summary ---
Author Organization [employer] Address [address] [place] [address] Care Team Providers Care Terra Cotta Roofer Helper Name Role Phone Unavailable Primary Care Provider Unavailabl e Encounter Details Date Type Department Care Team (Late st Contact Info) Description 01/03/2019 Transcribed Document [facility] [place] [address] ProviderGabby MD [address] [place] [id number] Social History Tobacco Use Types Packs/Day Years Used Date Smoking Tobacco: Never Assessed Comments Unknown Sex and Gender Information Value Date Recorded Sex Assigned at Female 12/30/2021 7:57 PM CDT Legal Sex Female 7:57 PM CDT Gender Identity Female 12/30/2021 7:57 PM CDT Sexual Orientation Not on file documented as of this encounter Miscellaneous Notes * Cerner Conversion Note - Gabby ProviderMD - 01/03/2019 9:42 [place] [address] GHAZALA POWELL :1980 Visit Time:01/03/2019 Your Visit Summary Your Care Team Admitting Physician - ROLA HERNANDEZ MD-JUDIT Attending Physician - ROLA HERNANDEZ MD-JUDIT Primary Care Physician - GALO AVILA (REF)MD[facility] Referring Physician - MARIA TERESA, SELF REFERRED Your Diagnosis Acute stress reaction Chest pressure History of panic disorder Hypertension Nonspecific chest pain Medical Information You may obtain a copy of your Emergency Department visit from Medical Records by calling the hospital phone number listed above and asking to be directed to the Medical Records Department. If you had special tests, such as EKG???s or X-rays, the interpretation of your tests given to you by the Emergency Department Physician is a preliminary report. Some fractures and illnesses fail to show up on preliminary tests. These will be reviewed again and we will call you if there are any new suggestions. If your symptoms continue notify your physician. After you leave, you should follow the instructions provided. What to do next Follow-Up Appointments Follow Up with GALO AVILA When Within 2 to 3 days Comments Your blood pressure was elevated during your visit to the emergency department today. There are many reasons as to why this may be, including your condition upon arrival to the hospital, as well as the stress involved with your situation. I have provided you a phone contact in order to arrange follow-up for this condition and its potential complications. You may certainly arrange follow up with your primary provider. Return or go to the nearest ER for recurrent persistent chest pain, shortness of breath, coughing up blood and/or persistent vomiting. Where: [address] [place] [address] [place] [address]- Business (1) [facility] with [facility] When Within As needed Comments Patient stated she is currently established with Galo Avila. Feel free to contact our Patient Resource Center at [phone] for any future Physician scheduling needs. Allergies No Known Medication Allergies Immunizations This Visit No Immunizations Found Medications What How Much When Instructions Next Dose The home medications listed are only as accurate as the information you provided. Please continue taking all of your medications prescribed by your Primary Care Provider unless specifically told to change or discontinue the medication. Please direct any questions regarding your home medications to your Primary Care Provider. Take your medications faithfully. Do NOT skip medication. Do NOT stop taking medications without the direction of a physician. Carry a list of your medications with you at all times, and take this medication list with you to your first follow up visit. Report any side effects. Avoid herbal remedies unless discussed with your physician. As part of your treatment plan, your physician may have prescribed a limited course of a controlled substance. This medication may be given to help people with moderate or severe pain or for other medical conditions, but there are risks involved with treatment. Common side effects may include nausea, constipation, drowsiness, sweating, itching, dry mouth, and rash. More serious side effects may include cognitive and motor impairment, like problems with thinking, concentrating, alertness, and movement (e.g. slowed reflexes), and driving and operating heavy machinery can be dangerous. It is important for you to talk to your physician if you have these side effects or questions. These controlled substances can produce physical dependence and be habit-forming if taken for an extended period of time, which means that the body has gotten used to them and may experience withdrawal symptoms if they are abruptly stopped. Withdrawal symptoms can include runny nose, sweating, goose bumps, diarrhea, abdominal cramping, rapid heartbeat, difficulty sleeping, and nervousness. Please dispose of unused and medications per pharmacy guidance. Test Results Laboratory or Other Results This Visit (last charted value for your 01/03/2019 visit) Hematology 01/03/19 19:25:00 WBC: 10.9 K/uL -- Normal range between ( 3.9 and 10.0 ) RBC: 4.28 Million/uL -- Normal range between ( 3.93 and 5.22 ) Hct: 38.0 % -- Normal range between ( 34.1 and 44.9 ) Hgb: 13.2 Gram/dL -- Normal range between ( 11.2 and 15.7 ) Platelet Count: 265 K/uL -- Normal range between ( 163 and 369 ) MCH: 30.8 pg -- Normal range between ( 25.6 and 32.2 ) MCHC: 34.7 Gram/dL -- Normal range between ( 32.3 and 36.5 ) MCV: 88.8 fL -- Normal range between ( 79.0 and 94.8 ) Slide Review: No RDW: 13.7 % -- Normal range between ( 11.6 and 14.4 ) MPV: 11.4 fL -- Normal range between ( 9.4 and 12.4 ) General Chemistry 01/03/19 19:25:00 Creatinine Level: 0.76 mg/dL -- Normal range between ( 0.55 and 1.02 ) Sodium Level: 138 mmol/L -- Normal range between ( 136 and 146 ) Potassium Level: 3.8 mmol/L -- Normal range between ( 3.5 and 5.1 ) Chloride Level: 110 mmol/L -- Normal range between ( 102 and 112 ) Carbon Dioxide Level: 21 mmol/L -- Normal range between ( 21 and 32 ) Anion Gap: 11 -- Normal range between ( 9 and 20 ) Bun/Creatinine: 21.1 -- Normal range between ( 8.0 and 20.0 ) Calcium Level: 9.0 mg/dL -- Normal range between ( 8.5 and 10.1 ) eGFR : >60 mL/min/1.73m2 eGFR NonAfrican: >60 mL/min/1.73m2 Glucose Level: 80 mg/dL -- Normal range between ( 74 and 106 ) Blood Urea Nitrogen: 16 mg/dL -- Normal range between ( 7 and 22 ) Cardiac Specific Markers 01/03/19 19:25:00 Troponin I Ultra: <0.015 ng/mL -- Normal range between ( 0.015 and 0.045 ) ProBNP: 28 pg/mL -- Normal range between ( 0 and 125 ) Education Materials DASH Eating Plan DASH stands for Dietary Approaches to Stop Hypertension. The DASH eating plan is a healthy eating plan that has been shown to reduce high blood pressure (hypertension). It may also reduce your risk for type 2 diabetes, heart disease, and stroke. The DASH eating plan may also help with weight loss. What are tips for following this plan? General guidelines ??? Avoid eating more than 2,300 mg (milligrams) of salt (sodium) a day. If you have hypertension, you may need to reduce your sodium intake to 1,500 mg a day. ??? Limit alcohol intake to no more than 1 drink a day for non women and 2 drinks a day for men. One drink equals 12 oz of beer, 5 oz of wine, or 1?? oz of hard liquor. ??? Work with your health care provider to maintain a healthy body weight or to lose weight. Ask what an ideal weight is for you. ??? Get at least 30 minutes of exercise that causes your heart to beat faster (aerobic exercise) most days of the week. Activities may include walking, swimming, or biking. ??? Work with your health care provider or diet and entry specialist (dietitian) to adjust your eating plan to your individual calorie needs. Reading food labels ??? Check food labels for the amount of sodium per serving. Choose foods with less than 5 percent of the Daily Value of sodium. Generally, foods with less than 300 mg of sodium per serving fit into this eating plan. ??? To find whole grains, look for the word whole as the first word in the ingredient list. Shopping ??? Buy products labeled as low-sodium or no salt added. ??? Buy fresh foods. Avoid canned foods and premade or frozen meals. Cooking ??? Avoid adding salt when cooking. Use salt-free seasonings or herbs instead of table salt or sea salt. Check with your health care provider or pharmacist before using salt substitutes. ??? Do not yoo foods. Cook foods using healthy methods such as baking, boiling, grilling, and broiling instead. ??? Cook with heart-healthy oils, such as olive, canola, soybean, or sunflower oil. Meal planning ??? Eat a balanced diet that includes: ? 5 or more servings of fruits and vegetables each day. At each meal, try to fill half of your plate with fruits and vegetables. ? Up to 6???8 servings of whole grains each day. ? Less than 6 oz of lean meat, poultry, or fish each day. A 3-oz serving of meat is about the same size as a deck of cards. One egg equals 1 oz. ? 2 servings of low-fat dairy each day. ? A serving of nuts, seeds, or beans 5 times each week. ? Heart-healthy fats. Healthy fats called [place]-3 fatty acids are found in foods such as flaxseeds and coldwater fish, like sardines, salmon, and mackerel. ??? Limit how much you eat of the following: ? Canned or prepackaged foods. ? Food that is high in trans fat, such as fried foods. ? Food that is high in saturated fat, such as fatty meat. ? Sweets, desserts, sugary drinks, and other foods with added sugar. ? Full-fat dairy products. ??? Do not salt foods before eating. ??? Try to eat at least 2 vegetarian meals each week. ??? Eat more home-cooked food and less restaurant, buffet, and fast food. ??? When eating at a restaurant, ask that your food be prepared with less salt or no salt, if possible. What foods are recommended? The items listed may not be a complete list. Talk with your dietitian about what dietary choices are best for you. Grains Whole-grain or whole-wheat bread. Whole-grain or whole-wheat pasta. Brown rice. Oatmeal. Quinoa. Bulgur. Whole-grain and low-sodium cereals. Ana Luisa bread. Low-fat, low-sodium crackers. Whole-wheat flour tortillas. Vegetables Fresh or frozen vegetables (raw, steamed, roasted, or grilled). Low-sodium or reduced-sodium tomato and vegetable juice. Low-sodium or reduced-sodium tomato sauce and tomato paste. Low-sodium or reduced-sodium canned vegetables. Fruits All fresh, dried, or frozen fruit. Canned fruit in natural juice (without added sugar). Meat and other protein foods Skinless chicken or turkey. Ground chicken or turkey. Pork with fat trimmed off. Fish and seafood. Egg whites. Dried beans, peas, or lentils. Unsalted nuts, nut butters, and seeds. Unsalted canned beans. Lean cuts of beef with fat trimmed off. Low-sodium, lean deli meat. Dairy Low-fat (1%) or fat-free (skim) milk. Fat-free, low-fat, or reduced-fat cheeses. Nonfat, low-sodium ricotta or cottage cheese. Low-fat or nonfat yogurt. Low-fat, low-sodium cheese. Fats and oils Soft margarine without trans fats. Vegetable oil. Low-fat, reduced-fat, or light mayonnaise and salad dressings (reduced-sodium). Canola, safflower, olive, soybean, and sunflower oils. Avocado. Seasoning and other foods Herbs. Spices. Seasoning mixes without salt. Unsalted popcorn and pretzels. Fat-free sweets. What foods are not recommended? The items listed may not be a complete list. Talk with your dietitian about what dietary choices are best for you. Grains Baked goods made with fat, such as croissants, muffins, or some breads. Dry pasta or rice meal packs. Vegetables Creamed or fried vegetables. Vegetables in a cheese sauce. Regular canned vegetables (not low-sodium or reduced-sodium). Regular canned tomato sauce and paste (not low-sodium or reduced-sodium). Regular tomato and vegetable juice (not low-sodium or reduced-sodium). Pickles. Olives. Fruits Canned fruit in a light or heavy syrup. Fried fruit. Fruit in cream or butter sauce. Meat and other protein foods Fatty cuts of meat. Ribs. Fried meat. Turner. Sausage. Bologna and other processed lunch meats. Salami. Fatback. Hotdogs. Bratwurst. Salted nuts and seeds. Canned beans with added salt. Canned or smoked fish. Whole eggs or egg yolks. Chicken or turkey with skin. Dairy Whole or 2% milk, cream, and [id number]-roc-[id number]. Whole or full-fat cream cheese. Whole-fat or sweetened yogurt. Full-fat cheese. Nondairy creamers. Whipped toppings. Processed cheese and cheese spreads. Fats and oils Butter. Stick margarine. Lard. Shortening. Ghee. Turner fat. Tropical oils, such as coconut, palm kernel, or palm oil. Seasoning and other foods Salted popcorn and pretzels. Onion salt, garlic salt, seasoned salt, table salt, and sea salt. Worcestershire sauce. Tartar sauce. Barbecue sauce. Teriyaki sauce. Soy sauce, including reduced-sodium. Steak sauce. Canned and packaged gravies. Fish sauce. Oyster sauce. Cocktail sauce. Horseradish that you find on the shelf. Ketchup. Mustard. Meat flavorings and tenderizers. Bouillon cubes. Hot sauce and Tabasco sauce. Premade or packaged marinades. Premade or packaged taco seasonings. Relishes. Regular salad dressings. Where to find more information: ??? National Heart, Lung, and Blood [place]: www.nhlbi.nih.gov ??? [place] [employer]: www.heart.org Summary ??? The DASH eating plan is a healthy eating plan that has been shown to reduce high blood pressure (hypertension). It may also reduce your risk for type 2 diabetes, heart disease, and stroke. ??? With the DASH eating plan, you should limit salt (sodium) intake to 2,300 mg a day. If you have hypertension, you may need to reduce your sodium intake to 1,500 mg a day. ??? When on the DASH eating plan, aim to eat more fresh fruits and vegetables, whole grains, lean proteins, low-fat dairy, and heart-healthy fats. ??? Work with your health care provider or diet and entry specialist (dietitian) to adjust your eating plan to your individual calorie needs. This information is not intended to replace advice given to you by your health care provider. Make sure you discuss any questions you have with your health care provider. Document Released: 06/09/2012 Document Revised: 06/14/2017 Document Reviewed: 06/14/2017 [employer] Patient Education ?? 2019 [employer]. Managing Your Hypertension Hypertension is commonly called high blood pressure. This is when the force of your blood pressing against the [place] of your arteries is too strong. Arteries are blood vessels that carry blood from your heart throughout your body. Hypertension forces the heart to work harder to pump blood, and may cause the arteries to become narrow or stiff. Having untreated or uncontrolled hypertension can cause heart attack, stroke, kidney disease, and other problems. What are blood pressure readings? A blood pressure reading consists of a higher number over a lower number. Ideally, your blood pressure should be below 120/80. The first ( top ) number is called the systolic pressure. It is a measure of the pressure in your arteries as your heart beats. The second ( bottom ) number is called the diastolic pressure. It is a measure of the pressure in your arteries as the heart relaxes. What does my blood pressure reading mean? Blood pressure is classified into four stages. Based on your blood pressure reading, your health care provider may use the following stages to determine what type of treatment you need, if any. Systolic pressure and diastolic pressure are measured in a unit called mm Hg. Normal ??? Systolic pressure: below 120. ??? Diastolic pressure: below 80. Elevated ??? Systolic pressure: 120-129. ??? Diastolic pressure: below 80. Hypertension stage 1 ??? Systolic pressure: 130-139. ??? Diastolic pressure: 80-89. Hypertension stage 2 ??? Systolic pressure: 140 or above. ??? Diastolic pressure: 90 or above. What health risks are associated with hypertension? Managing your hypertension is an important responsibility. Uncontrolled hypertension can lead to: ??? A heart attack. ??? A stroke. ??? A weakened blood vessel (aneurysm). ??? Heart failure. ??? Kidney damage. ??? Eye damage. ??? Metabolic syndrome. ??? Memory and concentration problems. What changes can I make to manage my hypertension? Hypertension can be managed by making lifestyle changes and possibly by taking medicines. Your health care provider will help you make a plan to bring your blood pressure within a normal range. Eating and drinking ??? Eat a diet that is high in fiber and potassium, and low in salt (sodium), added sugar, and fat. An example eating plan is called the DASH (Dietary Approaches to Stop Hypertension) diet. To eat this way: ? Eat plenty of fresh fruits and vegetables. Try to fill half of your plate at each meal with fruits and vegetables. ? Eat whole grains, such as whole wheat pasta, brown rice, or whole grain bread. Fill about one quarter of your plate with whole grains. ? Eat low-fat diary products. ? Avoid fatty cuts of meat, processed or cured meats, and poultry with skin. Fill about one quarter of your plate with lean proteins such as fish, chicken without skin, beans, eggs, and tofu. ? Avoid premade and processed foods. These tend to be higher in sodium, added sugar, and fat. ??? Reduce your daily sodium intake. Most people with hypertension should eat less than 1,500 mg of sodium a day. ??? Limit alcohol intake to no more than 1 drink a day for non women and 2 drinks a day for men. One drink equals 12 oz of beer, 5 oz of wine, or 1?? oz of hard liquor. Lifestyle ??? Work with your health care provider to maintain a healthy body weight, or to lose weight. Ask what an ideal weight is for you. ??? Get at least 30 minutes of exercise that causes your heart to beat faster (aerobic exercise) most days of the week. Activities may include walking, swimming, or biking. ??? Include exercise to strengthen your muscles (resistance exercise), such as weight lifting, as part of your weekly exercise routine. Try to do these types of exercises for 30 minutes at least 3 days a week. ??? Do not use any products that contain nicotine or tobacco, such as cigarettes and e-cigarettes. If you need help quitting, ask your health care provider. ??? Control any long-term (chronic) conditions you have, such as high cholesterol or diabetes. Monitoring ??? Monitor your blood pressure at home as told by your health care provider. Your personal target blood pressure may vary depending on your medical conditions, your age, and other factors. ??? Have your blood pressure checked regularly, as often as told by your health care provider. Working with your health care provider ??? Review all the medicines you take with your health care provider because there may be side effects or interactions. ??? Talk with your health care provider about your diet, exercise habits, and other lifestyle factors that may be contributing to hypertension. ??? Visit your health care provider regularly. Your health care provider can help you create and adjust your plan for managing hypertension. Will I need medicine to control my blood pressure? Your health care provider may prescribe medicine if lifestyle changes are not enough to get your blood pressure under control, and if: ??? Your systolic blood pressure is 130 or higher. ??? Your diastolic blood pressure is 80 or higher. Take medicines only as told by your health care provider. Follow the directions carefully. Blood pressure medicines must be taken as prescribed. The medicine does not work as well when you skip doses. Skipping doses also puts you at risk for problems. Contact a health care provider if: ??? You think you are having a reaction to medicines you have taken. ??? You have repeated (recurrent) headaches. ??? You feel dizzy. ??? You have swelling in your ankles. ??? You have trouble with your vision. Get help right away if: ??? You develop a severe headache or confusion. ??? You have unusual weakness or numbness, or you feel faint. ??? You have severe pain in your chest or abdomen. ??? You vomit repeatedly. ??? You have trouble breathing. Summary ??? Hypertension is when the force of blood pumping through your arteries is too strong. If this condition is not controlled, it may put you at risk for serious complications. ??? Your personal target blood pressure may vary depending on your medical conditions, your age, and other factors. For most people, a normal blood pressure is less than 120/80. ??? Hypertension is managed by lifestyle changes, medicines, or both. Lifestyle changes include weight loss, eating a healthy, low-sodium diet, exercising more, and limiting alcohol. This information is not intended to replace advice given to you by your health care provider. Make sure you discuss any questions you have with your health care provider. Document Released: 03/15/2013 Document Revised: 05/19/2017 Document Reviewed: 05/19/2017 [employer] Interactive Patient Education ?? 2019 [employer] Preventing Hypertension Hypertension, commonly called high blood pressure, is when the force of blood pumping through the arteries is too strong. Arteries are blood vessels that carry blood from the heart throughout the body. Over time, hypertension can damage the arteries and decrease blood flow to important parts of the body, including the brain, heart, and kidneys. Often, hypertension does not cause symptoms until blood pressure is very high. For this reason, it is important to have your blood pressure checked on a regular basis. Hypertension can often be prevented with diet and lifestyle changes. If you already have hypertension, you can control it with diet and lifestyle changes, as well as medicine. What nutrition changes can be made? Maintain a healthy diet. This includes: ??? Eating less salt (sodium). Ask your health care provider how much sodium is safe for you to have. The general recommendation is to consume less than 1 tsp (2,300 mg) of sodium a day. ? Do not add salt to your food. ? Choose low-sodium options when grocery shopping and eating out. ??? Limiting fats in your diet. You can do this by eating low-fat or fat-free dairy products and by eating less red meat. ??? Eating more fruits, vegetables, and whole grains. Make a goal to eat: ? 1?2 cups of fresh fruits and vegetables each day. ? 3???4 servings of whole grains each day. ??? Avoiding foods and beverages that have added sugars. ??? Eating fish that contain healthy fats (omega-3 fatty acids), such as mackerel or salmon. If you need help putting together a healthy eating plan, try the DASH diet. This diet is high in fruits, vegetables, and whole grains. It is low in sodium, red meat, and added sugars. DASH stands for Dietary Approaches to Stop Hypertension. What lifestyle changes can be made? Lose weight if you are overweight. Losing just 3?5% of your body weight can help prevent or control hypertension. ? For example, if your present weight is 200 lb (91 kg), a loss of 3???5% of your weight means losing 6???10 lb (2.7???4.5 kg). ? Ask your health care provider to help you with a diet and exercise plan to safely lose weight. ??? Get enough exercise. Do at least 150 minutes of moderate-intensity exercise each week. ? You could do this in short exercise sessions several times a day, or you could do longer exercise sessions a few times a week. For example, you could take a brisk 10-minute walk or bike ride, 3 times a day, for 5 days a week. ??? Find ways to reduce stress, such as exercising, meditating, listening to music, or taking a yoga class. If you need help reducing stress, ask your health care provider. ??? Do not smoke. This includes e-cigarettes. Chemicals in tobacco and nicotine products raise your blood pressure each time you smoke. If you need help quitting, ask your health care provider. ??? Avoid alcohol. If you drink alcohol, limit alcohol intake to no more than 1 drink a day for non women and 2 drinks a day for men. One drink equals 12 oz of beer, 5 oz of wine, or 1?? oz of hard liquor. Why are these changes important? Diet and lifestyle changes can help you prevent hypertension, and they may make you feel better overall and improve your quality of life. If you have hypertension, making these changes will help you control it and help prevent major complications, such as: ??? Hardening and narrowing of arteries that supply blood to: ? Your heart. This can cause a heart attack. ? Your brain. This can cause a stroke. ? Your kidneys. This can cause kidney failure. ??? Stress on your heart muscle, which can cause heart failure. What can I do to lower my risk? Work with your health care provider to make a hypertension prevention plan that works for you. Follow your plan and keep all follow-up visits as told by your health care provider. ??? Learn how to check your blood pressure at home. Make sure that you know your personal target blood pressure, as told by your health care provider. How is this treated? In addition to diet and lifestyle changes, your health care provider may recommend medicines to help lower your blood pressure. You may need to try a few different medicines to find what works best for you. You also may need to take more than one medicine. Take pmyi-tnw-ualptya and prescription medicines only as told by your health care provider. Where to find support Your health care provider can help you prevent hypertension and help you keep your blood pressure at a healthy level. Your local hospital or your community may also provide support services and prevention programs. The [place] [employer] offers an online support network at: http://supportnetwork.heart.org/eziq-ojavw-mzzzowpn Where to find more information Learn more about hypertension from: ??? National Heart, Lung, and Blood [place]: www.nhlbi.nih.gov/health/health-topics/topics/hbp ??? Centers for Disease Control and Prevention: www.cdc.gov/bloodpressure ??? [place] [employer]: http://familydoctor.org/familydoctor/en/diseases-conditions/mlgz-cwdhb-zzklwby e.printerview.all.html Learn more about the DASH diet from: ??? National Heart, Lung, and Blood [place]: www.nhlbi.nih.gov/health/health-topics/topics/dash Contact a health care provider if: ??? You think you are having a reaction to medicines you have taken. ??? You have recurrent headaches or feel dizzy. ??? You have swelling in your ankles. ??? You have trouble with your vision. Summary ??? Hypertension often does not cause any symptoms until blood pressure is very high. It is important to get your blood pressure checked regularly. ??? Diet and lifestyle changes are the most important steps in preventing hypertension. ??? By keeping your blood pressure in a healthy range, you can prevent complications like heart attack, heart failure, stroke, and kidney failure. ??? Work with your health care provider to make a hypertension prevention plan that works for you. This information is not intended to replace advice given to you by your health care provider. Make sure you discuss any questions you have with your health care provider. Document Released: 07/05/2016 Document Revised: 03/01/2017 Document Reviewed: 03/01/2017 [employer] Patient Education ?? 2019 [employer] Hypertension Hypertension is another name for high blood pressure. High blood pressure forces your heart to work harder to pump blood. This can cause problems over time. There are two numbers in a blood pressure reading. There is a top number (systolic) over a bottom number (diastolic). It is best to have a blood pressure below 120/80. Healthy choices can help lower your blood pressure. You may need medicine to help lower your blood pressure if: ??? Your blood pressure cannot be lowered with healthy choices. ??? Your blood pressure is higher than 130/80. Follow these instructions at home: Eating and drinking ??? If directed, follow the DASH eating plan. This diet includes: ? Filling half of your plate at each meal with fruits and vegetables. ? Filling one quarter of your plate at each meal with whole grains. Whole grains include whole wheat pasta, brown rice, and whole grain bread. ? Eating or drinking low-fat dairy products, such as skim milk or low-fat yogurt. ? Filling one quarter of your plate at each meal with low-fat (lean) proteins. Low-fat proteins include fish, skinless chicken, eggs, beans, and tofu. ? Avoiding fatty meat, cured and processed meat, or chicken with skin. ? Avoiding premade or processed food. ??? Eat less than 1,500 mg of salt (sodium) a day. ??? Limit alcohol use to no more than 1 drink a day for non women and 2 drinks a day for men. One drink equals 12 oz of beer, 5 oz of wine, or 1?? oz of hard liquor. Lifestyle ??? Work with your doctor to stay at a healthy weight or to lose weight. Ask your doctor what the best weight is for you. ??? Get at least 30 minutes of exercise that causes your heart to beat faster (aerobic exercise) most days of the week. This may include walking, swimming, or biking. ??? Get at least 30 minutes of exercise that strengthens your muscles (resistance exercise) at least 3 days a week. This may include lifting weights or pilates. ??? Do not use any products that contain nicotine or tobacco. This includes cigarettes and e-cigarettes. If you need help quitting, ask your doctor. ??? Check your blood pressure at home as told by your doctor. ??? Keep all follow-up visits as told by your doctor. This is important. Medicines ??? Take lfcj-knj-smcsupn and prescription medicines only as told by your doctor. Follow directions carefully. ??? Do not skip doses of blood pressure medicine. The medicine does not work as well if you skip doses. Skipping doses also puts you at risk for problems. ??? Ask your doctor about side effects or reactions to medicines that you should watch for. Contact a doctor if: ??? You think you are having a reaction to the medicine you are taking. ??? You have headaches that keep coming back (recurring). ??? You feel dizzy. ??? You have swelling in your ankles. ??? You have trouble with your vision. Get help right away if: ??? You get a very bad headache. ??? You start to feel confused. ??? You feel weak or numb. ??? You feel faint. ??? You get very bad pain in your: ? Chest. ? Belly (abdomen). ??? You throw up (vomit) more than once. ??? You have trouble breathing. Summary ??? Hypertension is another name for high blood pressure. ??? Making healthy choices can help lower blood pressure. If your blood pressure cannot be controlled with healthy choices, you may need to take medicine. This information is not intended to replace advice given to you by your health care provider. Make sure you discuss any questions you have with your health care provider. Document Released: 12/07/2008 Document Revised: 05/19/2017 Document Reviewed: 05/19/2017 [employer] Patient Education ?? 2019 [employer] Stress Stress is a normal reaction to life events. Stress is what you feel when life demands more than you are used to, or more than you think you can handle. Some stress can be useful, such as studying for a test or meeting a deadline at work. Stress that occurs too often or for too long can cause problems. It can affect your emotional health and interfere with relationships and normal daily activities. Too much stress can weaken your body's defense system (immune system) and increase your risk for physical illness. If you already have a medical problem, stress can make it worse. What are the causes? All sorts of life events can cause stress. An event that causes stress for one person may not be stressful for another person. Major life events, whether positive or negative, commonly cause stress. Examples include: ??? Losing a job or starting a new job. ??? Losing a loved one. ??? Moving to a new town or home. ??? Getting or . ??? Having a baby. ??? Injury or illness. Less obvious life events can also cause stress, especially if they occur day after day or in combination with each other. Examples include: ??? Working long hours. ??? Driving in traffic. ??? Caring for children. ??? Being in debt. ??? Being in a difficult relationship. What are the signs or symptoms? Stress can cause emotional symptoms, including: ??? Anxiety. This is feeling worried, afraid, on edge, overwhelmed, or out of control. ??? Anger, including irritation or impatience. ??? Depression. This is feeling sad, down, helpless, or guilty. ??? Trouble focusing, remembering, or making decisions. Stress can cause physical symptoms, including: ??? Aches and pains. These may affect your head, neck, back, stomach, or other areas of your body. ??? Tight muscles or a clenched jaw. ??? Low energy. ??? Trouble sleeping. Stress can cause unhealthy behaviors, including: ??? Eating to feel better (overeating) or skipping meals. ??? Working too much or putting off tasks. ??? Smoking, drinking alcohol, or using drugs to feel better. How is this diagnosed? Stress is diagnosed through an assessment by your health care provider. He or she may diagnose this condition based on: ??? Your symptoms and any stressful life events. ??? Your medical history. ??? Tests to rule out other causes of your symptoms. Depending on your condition, your health care provider may refer you to a specialist for further evaluation. How is this treated? Stress management techniques are the recommended treatment for stress. Medicine is not typically recommended for the treatment of stress. Techniques to reduce your reaction to stressful life events include: ??? Stress identification. Monitor yourself for symptoms of stress and identify what causes stress for you. These skills may help you to avoid or prepare for stressful events. ??? Time management. Set your priorities, keep a calendar of events, and learn to say ???no.?? Taking these actions can help you avoid making too many commitments. Techniques for coping with stress include: ??? Rethinking the problem. Try to think realistically about stressful events rather than ignoring them or overreacting. Try to find the positives in a stressful situation rather than focusing on the negatives. ??? Exercise. Physical exercise can release both physical and emotional tension. The whitman is to find a form of exercise that you enjoy and do it regularly. ??? Relaxation techniques. These relax the body and mind. The whitman is to find one or more that you enjoy and use the technique(s) regularly. Examples include: ? Meditation, deep breathing, or progressive relaxation techniques. ? Yoga or curtis chi. ? Biofeedback, mindfulness techniques, or journaling. ? Listening to music, being out in nature, or participating in other hobbies. ??? Practicing a healthy lifestyle. Eat a balanced diet, drink plenty of water, limit or avoid caffeine, and get plenty of sleep. ??? Having a strong support network. Spend time with family, friends, or other people you enjoy being around. Express your feelings and talk things over with someone you trust. Counseling or talk therapy with a mental health professional may be helpful if you are having trouble managing stress on your own. Follow these instructions at home: Lifestyle ??? Avoid drugs. ??? Do not use any products that contain nicotine or tobacco, such as cigarettes and e-cigarettes. If you need help quitting, ask your health care provider. ??? Limit alcohol intake to no more than 1 drink a day for non women and 2 drinks a day for men. One drink equals 12 oz of beer, 5 oz of wine, or 1?? oz of hard liquor. ??? Do not use alcohol or drugs to relax. ??? Eat a balanced diet that includes fresh fruits and vegetables, whole grains, lean meats, fish, eggs, and beans, and low-fat dairy. Avoid processed foods and foods high in added fat, sugar, and salt. ??? Exercise at least 30 minutes on 5 or more days each week. ??? Get 7???8 hours of sleep each night. General instructions ??? Practice stress management techniques as discussed with your health care provider. ??? Drink enough fluid to keep your urine clear or pale yellow. ??? Take ajuu-pps-nbzufiw and prescription medicines only as told by your health care provider. ??? Keep all follow-up visits as told by your health care provider. This is important. Contact a health care provider if: ??? Your symptoms get worse. ??? You have new symptoms. ??? You feel overwhelmed by your problems and can no longer manage them on your own. Get help right away if: ??? You have thoughts of hurting yourself or others. If you ever feel like you may hurt yourself or others, or have thoughts about taking your own life, get help right away. You can go to your nearest emergency department or call: ??? Your local emergency services (911 in the [place] ??? A suicide crisis helpline, such as the National Suicide Prevention Lifeline at . This is open 24 hours a day. Summary ??? Stress is a normal reaction to life events. It can cause problems if it happens too often or for too long. ??? Practicing stress management techniques is the best way to treat stress. ??? Counseling or talk therapy with a mental health professional may be helpful if you are having trouble managing stress on your own. This information is not intended to replace advice given to you by your health care provider. Make sure you discuss any questions you have with your health care provider. Document Released: 12/15/2001 Document Revised: 08/11/2017 Document Reviewed: 08/11/2017 [employer] Patient Education ?? 2019 [employer] Nonspecific Chest Pain Chest pain can be caused by many different conditions. There is always a chance that your pain could be related to something serious, such as a heart attack or a blood clot in your lungs. Chest pain can also be caused by conditions that are not life-threatening. If you have chest pain, it is very important to follow up with your health care provider. What are the causes? Causes of this condition include: ??? Heartburn. ??? Pneumonia or bronchitis. ??? Anxiety or stress. ??? Inflammation around your heart (pericarditis) or lung (pleuritis or pleurisy). ??? A blood clot in your lung. ??? A collapsed lung (pneumothorax). This can develop suddenly on its own (spontaneous pneumothorax) or from trauma to the chest. ??? Shingles infection (varicella-zoster virus). ??? Heart attack. ??? Damage to the bones, muscles, and cartilage that make up your chest wall. This can include: ? Bruised bones due to injury. ? Strained muscles or cartilage due to frequent or repeated coughing or overwork. ? Fracture to one or more ribs. ? Sore cartilage due to inflammation (costochondritis). What increases the risk? Risk factors for this condition may include: ??? Activities that increase your risk for trauma or injury to your chest. ??? Respiratory infections or conditions that cause frequent coughing. ??? Medical conditions or overeating that can cause heartburn. ??? Heart disease or family history of heart disease. ??? Conditions or health behaviors that increase your risk of developing a blood clot. ??? Having had chicken pox (varicella zoster). What are the signs or symptoms? Chest pain can feel like: ??? Burning or tingling on the surface of your chest or deep in your chest. ??? Crushing, pressure, aching, or squeezing pain. ??? Dull or sharp pain that is worse when you move, cough, or take a deep breath. ??? Pain that is also felt in your back, neck, shoulder, or arm, or pain that spreads to any of these areas. Your chest pain may come and go, or it may stay constant. How is this diagnosed? Lab tests or other studies may be needed to find the cause of your pain. Your health care provider may have you take a test called an ECG (electrocardiogram). An ECG records your heartbeat patterns at the time the test is performed. You may also have other tests, such as: ??? Transthoracic echocardiogram (TTE). In this test, sound waves are used to create a picture of the heart structures and to look at how blood flows through your heart. ??? Transesophageal echocardiogram (LORRIE). This is a more advanced imaging test that takes images from inside your body. It allows your health care provider to see your heart in finer detail. ??? Cardiac monitoring. This allows your health care provider to monitor your heart rate and rhythm in real time. ??? Holter monitor. This is a portable device that records your heartbeat and can help to diagnose abnormal heartbeats. It allows your health care provider to track your heart activity for several days, if needed. ??? Stress tests. These can be done through exercise or by taking medicine that makes your heart beat more quickly. ??? Blood tests. ??? Other imaging tests. How is this treated? Treatment depends on what is causing your chest pain. Treatment may include: ??? Medicines. These may include: ? Acid blockers for heartburn. ? Anti-inflammatory medicine. ? Pain medicine for inflammatory conditions. ? Antibiotic medicine, if an infection is present. ? Medicines to dissolve blood clots. ? Medicines to treat coronary artery disease (CAD). ??? Supportive care for conditions that do not require medicines. This may include: ? Resting. ? Applying heat or cold packs to injured areas. ? Limiting activities until pain decreases. Follow these instructions at home: Medicines ??? If you were prescribed an antibiotic, take it as told by your health care provider. Do not stop taking the antibiotic even if you start to feel better. ??? Take ivsl-ofb-ngerxhd and prescription medicines only as told by your health care provider. Lifestyle ??? Do not use any products that contain nicotine or tobacco, such as cigarettes and e-cigarettes. If you need help quitting, ask your health care provider. ??? Do not drink alcohol. ??? Make lifestyle changes as directed by your health care provider. These may include: ? Getting regular exercise. Ask your health care provider to suggest some activities that are safe for you. ? Eating a heart-healthy diet. A registered dietitian can help you to learn healthy eating options. ? Maintaining a healthy weight. ? Managing diabetes, if necessary. ? Reducing stress, such as with yoga or relaxation techniques. General instructions ??? Avoid any activities that bring on chest pain. ??? If heartburn is the cause for your chest pain, raise (elevate) the head of your bed about 6 inches (15 cm) by putting blocks under the legs. Sleeping with more pillows does not effectively relieve heartburn because it only changes the position of your head. ??? Keep all follow-up visits as told by your health care provider. This is important. This includes any further testing if your chest pain does not go away. Contact a health care provider if: ??? Your chest pain does not go away. ??? You have a rash with blisters on your chest. ??? You have a fever. ??? You have chills. Get help right away if: ??? Your chest pain is worse. ??? You have a cough that gets worse, or you cough up blood. ??? You have severe pain in your abdomen. ??? You have severe weakness. ??? You faint. ??? You have sudden, unexplained chest discomfort. ??? You have sudden, unexplained discomfort in your arms, back, neck, or jaw. ??? You have shortness of breath at any time. ??? You suddenly start to sweat, or your skin gets clammy. ??? You feel nauseous or you vomit. ??? You suddenly feel light-headed or dizzy. ??? Your heart begins to beat quickly, or it feels like it is skipping beats. These symptoms may represent a serious problem that is an emergency. Do not wait to see if the symptoms will go away. Get medical help right away. Call your local emergency services (911 in the [place] Do not drive yourself to the hospital. This information is not intended to replace advice given to you by your health care provider. Make sure you discuss any questions you have with your health care provider. Document Released: 03/31/2006 Document Revised: 03/15/2017 Document Reviewed: 03/15/2017 [employer] Patient Education ?? 2019 [employer]. Emergency Awareness and Preventative Care STROKE is an EMERGENCY Every Minute Counts Act FAST and Check for these signs: FACE Does the face look uneven? ARM Does one arm drift down? SPEECH Does their speech sound strange? TIME Call at any sign of stroke Stroke Risk Factors Atrial Fibrillation (irregular heartbeat) Diabetes Family history of stroke Heart Disease Heavy alcohol use High Blood Pressure High Cholesterol Physical inactivity and obesity Smoking Cigarette Smoking The facts are clear, cigarette smoking will shorten your life. Smoking can cause many illnesses along the way. As a healthcare provider, we recommend that you stop smoking. Assistance with quitting is available by contacting 4-957-XCPQ-NOW. This is a free resource providing counseling, support, and referral. Or you may contact your personal physician. National Suicide Prevention Lifeline: The National Suicide Prevention Lifeline is a national network of local crisis centers that provides free and confidential emotional support to people in suicidal crisis or emotional distress 24 hours a day, 7 days a week. Don't Wait! Stop a Heart Attack Before it Starts What is a heart attack? A heart attack is damage or to a part of the heart from severely decreased or lack of blood flow to the heart. Over time, arteries can become narrow from the buildup of fat and cholesterol, which is called plaque. The plaque can rupture causing a blood clot to form. When the blood clot forms, the artery can become severely narrowed or completely blocked, causing a heart attack. Heart attack is the leading cause of in the [place]. 85% of muscle damage occurs within the first 2 hours. Delay in the recognition of heart attack symptoms increases the chances of . Know the early symptoms of a heart attack: Nausea Feeling of fullness in chest Jaw Pain Pain that travels down one or both arms Fatigue/being tired Anxiety Back Pain Chest pressure, squeezing, or discomfort Shortness of breath Sweating, or a cold sweat Feeling of impending doom There are unusual signs of a heart attack, too! Women, the elderly, and diabetics may present with atypical symptoms: Fainting/dizziness Weakness Confusion Risk Factors for a Heart Attack Some heart disease risk factors, such as age and family history, cannot be changed. Others, like smoking and lack of exercise, can be changed. Smoking High Cholesterol High Blood Pressure Family History Obesity Age Gender (Males are at higher risk) Lack of Exercise Diabetes Diet Stress Excessive Alcohol Intake If you or someone you know is experiencing the signs and symptoms of a heart attack, DON???T DELAY. Call immediately and seek help. If someone collapses, perform CPR! Do not attempt to drive if you are having symptoms of heart attack. Hands-Only CPR Why Hands-Only CPR? Hands-Only CPR has been shown to be as effective as conventional CPR for cardiac arrests that occur outside of a hospital. Survival depends on immediately receiving CPR from someone nearby. How do you perform Hands-Only CPR? There are two easy steps: Call if you see a teen or adult collapse Push hard and fast in the center of the chest at a beat of 100 beats per minute. Save a life! 4 WAYS TO GET AHEAD OF SEPSIS SEPSIS is a MEDICAL EMERGENCY. Time matters! Infections put you and your family at risk for a life-threatening condition called sepsis. Sepsis is the body's extreme response to an infection. It is life-threatening, and without timely treatment, sepsis can rapidly lead to tissue damage, organ failure, and . Sepsis happens when an infection you already have-in your skin, lungs, urinary tract or somewhere else-triggers a chain reaction throughout your body. 1 PREVENT INFECTIONS Take good care of chronic conditions. Talk to your doctor about getting the recommended vaccines. 2 PRACTICE GOOD HYGIENE Wash your hands frequently. Keep cuts or open sores clean and covered until they are healed. 3 KNOW THE SYMPTOMS Confusion or disorientation Shortness of breath High heart rate Fever, shivering, or feeling very cold Extreme pain or discomfort Clammy or sweaty skin 4 ACT FAST Get medical care IMMEDIATELY if you suspect sepsis or if you have an infection that is not getting better or is getting worse. To learn more about sepsis and how to prevent infections, visit www.cdc.gov/sepsis. The examination and treatment you have received in the Emergency Department has been done to provide an appropriate evaluation and stabilizing treatment on an emergency basis only. Given the limited resources, it is not meant to be a substitute for complete medical care. The follow-up doctor you named will receive a copy of your records and all test reports. IT IS IMPORTANT THAT YOU SCHEDULE A FOLLOW-UP APPOINTMENT AND ARE RE-EVALUATED. You should report any new complaints, symptoms, or remaining problems at that time. IT IS IMPOSSIBLE FOR THE EMERGENCY DEPARTMENT TO RECOGNIZE AND TREAT ALL ELEMENTS OF INJURY OR ILLNESS IN A SINGLE VISIT. If you have been referred to a specialist physician, it means that we believe you may have a condition that requires the expertise of a specialist. These physicians work in partnership with the hospital and have agreed to see referred patients in their office for further evaluation. KEEP IN MIND THAT THE SPECIALIST HAS HIS/HER OWN OFFICE POLICIES WHICH MAY REQUIRE PROPER INSURANCE OR PAYMENT UP FRONT BEFORE THE SPECIALIST WILL SEE YOU. It is your responsibility to call the specialist physician to make an appointment. We do not have the ability to refer patients to specialists/physicians that work with specific insurance companies. Please be advised that all financial charges or billing practices are determined by that practice, not the hospital. If your insurance company requires that you see a specialist from their approved list, it is your responsibility to contact your insurance company to make those arrangements. It is also your responsibility to follow any other requirements of your insurance company necessary to obtain coverage for claims submitted. We will bill your insurance; however, you are responsible today for any co-pay amounts. You will receive a separate bill for any services you may have received including: emergency, radiology, or pathology physicians. Patient Name:GHAZALA POWELL I have received this information and was given the opportunity to ask questions. Patient/Creative Writing Professor Name: Patient/Creative Writing Professor Signature: Relationship to Patient: Clinician/Hospital Creative Writing Professor Signature: Please Provide a Telephone Number Where You Can Be Reached: Is it Permissible To Leave a Message? Date: documented in this encounter Plan of Treatment Not on file documented as of this encounter Visit Diagnoses Not on filedocumented in this encounter
--- OUTSIDE RECORDS SUMMARY | 2024-12-19 19:54 | XMS_ITS | Clinical Summary ---
Author Organization [employer] Address [address] [place] [address] Care Team Providers Care Mobile Practice Lead Name Role Phone Unavailable Primary Care Provider Unavailabl e Social History Tobacco Use Types Packs/Day Years Used Date Smoking Tobacco: Never Assessed Comments Unknown Sex and Gender Information Value Date Recorded Sex Assigned at Female 12/30/2021 7:57 PM CDT Legal Sex Female 7:57 PM CDT Gender Identity Female 12/30/2021 7:57 PM CDT Sexual Orientation Not on file Plan of Treatment Not on file
--- OUTSIDE RECORDS SUMMARY | 2024-12-19 19:54 | XMS_ITS | Referral Summary ---
Author Organization [employer] Address [address] [place] [address] Care Team Providers Care Firewall Administrator Name Role Phone Unavailable Primary Care Provider [...]
--- OUTSIDE RECORDS SUMMARY | 2024-12-19 19:54 | XMS_ITS | Encounter Summary ---
Author Organization [employer] Address [address] [place] [address] Care Team Providers Care Acetylene Torch Solderer Name Role Phone Unavailable Primary Care Provider Unavailabl e Encounter Details Date Type Department Care Team (Late st Contact Info) Description 01/03/2019 Transcribed Document [facility] [place] [facility] [place] [address] ProviderGabby MD [address] [place] [id number] Social History Tobacco Use Types Packs/Day [...] Conversion Note - Gabby ProviderMD - 01/03/2019 9:50 PM CDT ED Discharge Entered On: 01/03/2019 21:50 EDT Performed On: 01/03/2019 21:50 EDT by Radha Vega Rn Discharge Process Patient Disposition : Discharge Personal Belongings With Patient : Yes Patient Education Completed : Yes Teaching Evaluation : Verbalizes understanding IV Discontinued : Yes Nursing Documentation Completed : Yes Radha Vega Rn - 01/03/2019 21:50 EDT ED Discharge Discharge To : Home without planned follow-up Mode Of Departure : Private vehicle Accompanied By : Unaccompanied Discharge Instructions Reviewed With, Opportunity For Questions Given : Patient Prescriptions Given to Patient : No Medications Given to Patient : Yes Number of Medications Given : 2 Radha Vega Rn - 01/03/2019 21:50 EDT documented in this encounter Plan of Treatment Not on file documented as of this encounter Visit Diagnoses Not on filedocumented in this encounter
--- OUTSIDE RECORDS SUMMARY | 2024-12-19 19:54 | XMS_ITS | Encounter Summary ---
Author Organization [employer] Address [address] [place] [address] Care Team Providers Care Maintenance Scheduler Name Role Phone Unavailable Primary Care Provider Unavailabl e Encounter Details Date Type Department Care Team (Late st Contact Info) Description 01/03/2019 Transcribed Document [facility] [place] [facility] [place] [address] ProviderGabby MD [address] [place] [address] Social History Tobacco Use Types Packs/Day [...] Conversion Note - Gabby ProviderMD - 01/03/2019 6:45 PM CDT Patient: GHAZALA POWELL Age: 38 years Sex: Female : 1980 Associated Diagnoses: Nonspecific chest pain; Acute stress reaction; Hypertension; History of panic disorder Author: TERESO LAZO MD Basic Information Time seen: Date & time 01/03/2019 18:45:00, Voice recognition / clinical education manager technology used for some documentation in this chart in attempt to mitigate substantial inefficiencies created by this electronic health record technology. As a result, there may be some typos and/or non-sensical language introduced into the chart that either are overlooked in editing/review and/or that I am unable to correct as patient care needs require me to prioritize my attention to bedside patient care rather than electronic documentation.. . History source: Patient, spouse, EMS. Arrival mode: Ambulance. History limitation: None. Additional information: Chief Complaint from Nursing Triage Note : Chief Complaint 01/03/2019 18:34 EDT Chief Complaint pt c/o anxious with chest pressure states has bad anxiety attacks . History of Present Illness Ms. Powell, presents via EMS to room #9, with male individual pension adviser in attendance. She reports that she's been under a lot of stress with her son and his baby alex. They have been back and forth with each other and the baby alex wants to terminate the . She reportedly started feeling more stressed yesterday evening and today she was at work. She was on a 15 minute break and went out to her truck in order to take a Klonopin. When she got there she found out that the Klonopin's were gone. She was on the phone with her son who aggravated the situation and caused him more stress and sadness. She started feeling a panic attack coming on and that she started having some tightness in her chest and associated shortness of breath and palpitations. She states that she's been able to work her way through her panic attacks by breath modulation. She states that she was not able to do at this time. Her male individual pension adviser called the ambulance who transported her here for further evaluation. The patient presents with chest pain. The onset was 1.75 hours ago. The course/duration of symptoms is constant and improving. Location: Anterior chest. Radiating pain: none. The character of symptoms is tightness. The degree at onset was moderate. The degree at maximum was moderate. The degree at present is moderate. The exacerbating factor is none. The relieving factor is none. Prior episodes: non-cardiac. Therapy today None. Associated symptoms: shortness of breath, anxiety, palpitations, denies nausea, denies vomiting and denies diaphoresis. Additional history: See note above.. Review of Systems Constitutional symptoms: No fever, no chills, no weakness, no fatigue, no decreased activity. Skin symptoms: No jaundice, no rash, no pruritus, no abrasions, no petechiae. Eye symptoms: Vision unchanged. ENMT symptoms: No sore throat, no nasal congestion. Respiratory symptoms: Shortness of breath, no orthopnea, no cough. Cardiovascular symptoms: Chest pain, palpitations. Gastrointestinal symptoms: No abdominal pain, no nausea, no vomiting, no diarrhea, no constipation, no rectal bleeding. Genitourinary symptoms: No dysuria, no hematuria, no vaginal bleeding, no vaginal discharge. Musculoskeletal symptoms: No back pain, no Muscle pain, no Joint pain. Neurologic symptoms: No headache, no dizziness, no altered level of consciousness, no numbness, no tingling, no weakness. Psychiatric symptoms: No anxiety, no depression. Endocrine symptoms: No polyuria, no polydipsia. Hematologic/Lymphatic symptoms: Bleeding tendency negative, bruising tendency negative, no petechiae. Allergy/immunologic symptoms: No recurrent infections, no impaired immunity. Health Status Allergies: Allergic Reactions (Selected) No Known Medication Allergies. Medications: (Selected) Documented Medications Documented Anoro Ellipta 62.5 mcg-25 mcg/inh inhalation powder: Puff, Inhalation, Daily, 0 Refill(s) Bystolic: Oral, Daily, 0 Refill(s) Pradaxa 150 mg oral capsule: 1 Cap, Oral, BID, 60 Cap, 0 Refill(s) PriLOSEC: 40 mg, Oral, Daily, 0 Refill(s) albuterol 2.5 mg/3 mL (0.083%) inhalation solution: 3 mL, Inhalation, Q6H, PRN: as needed for wheezing, 25 Each, 0 Refill(s) aspirin 81 mg oral delayed release tablet: 1 Tab, Oral, Daily, 30 Tab, 0 Refill(s) clonazePAM 0.5 mg oral tablet: 1 Tab, Oral, TID, PRN: Anxiety, 0 Refill(s) escitalopram 10 mg oral tablet: 1 Tab, Oral, Daily, 30 Tab, 0 Refill(s) zolpidem 5 mg oral tablet: 1 Tab, Oral, At Bedtime, PRN: for sleep, 0 Refill(s). Immunizations: Unknown. Menstrual history: Unknown. Past Medical/ Family/ Social History Medical history Cardiovascular: coronary artery disease, hypertension, myocardial infarction. Psychiatric: anxiety. Surgical history: No active procedure history items have been selected or recorded., None recently. Family history: Not significant. Social history: Social & Psychosocial Habits Alcohol 04/05/2016 Alcohol Use History, Social Habits No Substance Abuse 04/05/2016 Recreational Drug Use History No Recreational Drug Use Last 12 Months No Tobacco 04/05/2016 Smoking Status Current every day smoker Smoking Frequency Within Last 30 Days Five or more cigarettes p Tobacco Use Within Last Twelve Months Cigarettes Years of Tobacco Use 16 Packs/Tins Daily 1.5 . Physical Examination Vital Signs Vital Signs/Vital Measures 01/03/2019 18:34 EDT Systolic Blood Pressure 138 mmHg Diastolic Blood Pressure 90 mmHg Temperature Mode Fahrenheit Temperature, Fahrenheit 98.5 Deg F Clinical Temperature, C 36.9 Deg C Peripheral Pulse Rate 78 bpm Respiratory Rate 18 Breaths/Min Oxygen Saturation 100 % Oxygen Therapy Mode Room air . Measurements 01/03/2019 18:34 EDT Height Source Measured Height Entry Format [place] Height/Length, IVORIAN (ft) 5 ft Height/Length IVORIAN 6 Inch CLINICALHEIGHT 167.64 cm [place] Body Weight 58.88 kg Weight Source, ED Standing scale Weight Entry Format [place] Weight [place] lb 160 lb CLINICALWEIGHT 72.73 kg Body Surface Area (BSA) 1.82 m2 Body Mass Index 25.9 kg/m2 HI . Oxygen saturation. General: Alert, no acute distress, anxious, well nourished, calm, cooperative, well hydrated, Ambulation status: With steady gait. Skin: Warm, dry, pink, intact, no pallor, no rash. Head: Normocephalic, atraumatic. Neck: Supple, trachea midline, no tenderness. Eye: Pupils are equal, round and reactive to light, extraocular movements are intact, normal conjunctiva. Ears, nose, mouth and throat: Oral mucosa moist. Cardiovascular: Regular rate and rhythm, No murmur, Normal peripheral perfusion, No edema. Respiratory: Lungs are clear to auscultation, breath sounds are equal, Symmetrical chest wall expansion, Respirations: Regular, tachypneic. Chest wall: No tenderness, No deformity. Back: Nontender, Normal range of motion. Musculoskeletal: Normal ROM, normal strength, no tenderness, no swelling. Gastrointestinal: Soft, Nontender, Non distended, Normal bowel sounds, No organomegaly. Genitourinary: Exam deferred. Neurological: Alert and oriented to person, place, time, and situation, No focal neurological deficit observed. Lymphatics: No lymphadenopathy. Psychiatric: Cooperative, appropriate mood & affect. Medical Decision Making Differential Diagnosis: Unstable angina, angina, anxiety, atypical chest pain, pleurisy, chest wall pain, chronic obstructive pulmonary disease. Documents reviewed: Emergency department nurses' notes, emergency department records, prior records. Orders Include Previous Orders (Selected) Inpatient Orders Ordered Blood Pressure: Cardiac Monitoring: Discharge: EKG: Pulse Oximetry Continuous Monitoring: Ordered (Exam Completed) CR Chest 1 Vw Portable: Completed BMP Basic Metabolic Panel: Benadryl: 25 mg, IV Push, 1-Time CBC no Diff (Hemogram): ED Adult Fall Risk Assessment: ED Adult Triage: ED Clinical Reconciliation: ED internal review and audit compliance: Haldol: 1 mg, IV Push, 1-Time Normal Saline Bolus: 1,000 mL, 100 mL/Hr, IV Piggyback, 1-Time ProBNP: Saline Lock Insert: Troponin I Ultra: . Electrocardiogram: Time 01/03/2019 18:45:00, rate 75, Ectopy Occasional, premature atrial contractions, , With aberrant conduction, P wave and FL interval WNL, QT interval WNL, QRS interval WNL, Interpretation by Emergency Physician Interpreted by me contemporaneously with care, no significant interval changes, , ischemic changes, , PRWP, SR. Results review: Lab results : Lab Results 01/03/2019 19:25 EDT Sodium Level 138 mmol/L Potassium Level 3.8 mmol/L Chloride Level 110 mmol/L Carbon Dioxide Level 21 mmol/L Anion Gap 11 Glucose Level 80 mg/dL Blood Urea Nitrogen 16 mg/dL Creatinine Level 0.76 mg/dL eGFR >60 mL/min/1.73m2 eGFR NonAfrican >60 mL/min/1.73m2 Bun/Creatinine 21.1 HI Calcium Level 9.0 mg/dL Troponin I Ultra <0.015 ng/mL ProBNP 28 pg/mL WBC 10.9 K/uL HI RBC 4.28 Million/uL Hgb 13.2 Gram/dL Hct 38.0 % MCV 88.8 fL MCH 30.8 pg MCHC 34.7 Gram/dL Platelet Count 265 K/uL MPV 11.4 fL RDW 13.7 % Slide Review No . Chest X-Ray: Time reported 01/03/2019 21:15:00, no acute disease process, View: AP, interpretation by Emergency Physician, Loop recorder noted. Impression and Plan Diagnosis Nonspecific chest pain - Discharge, Emergency medicine, Medical Acute stress reaction - Discharge, Emergency medicine, Medical Hypertension - Discharge, Emergency medicine, 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 of panic disorder - Discharge, Emergency medicine, Medical Plan Condition: Stable. Disposition: Discharged Admit/Transfer/Discharge: Discharge (Order): Start: 01/03/2019 21:33 EDT, Discharge to: Home. Patient was given the following educational materials: Nonspecific Chest Pain, Stress, Hypertension, [id number], Preventing Hypertension, Managing Your Hypertension, DASH Eating Plan. Limitations: Limited activity. Follow up with: [facility] Within As needed Patient stated she is currently established with Galo [facility]enport. Feel free to contact our Patient Resource Center at [phone] for any future Physician scheduling needs. ; GALO MARGARITA Within 2 to 3 days Your blood pressure was elevated during your [...] breath, coughing up blood and/or persistent vomiting. . Counseled: Patient, Family, Regarding diagnosis, Regarding diagnostic results, Regarding treatment plan, Patient indicated understanding of instructions, Pre-hypertension/Hypertension: The patient has been informed that they may have pre-hypertension or Hypertension based on a blood pressure reading in the emergency department. I recommend that the patient call the primary care provider listed on their discharge instructions or a physician of their choice this week to arrange follow up for further evaluation of possible pre-hypertension or Hypertension.. documented in this encounter Plan of Treatment Not on file documented as of this encounter Visit Diagnoses Not on filedocumented in this encounter
--- OUTSIDE RECORDS SUMMARY | 2024-12-19 19:54 | XMS_ITS | Encounter Summary ---
Author Organization [employer] Address [address] [place] [address] Care Team Providers Care Turbine Attendant Name Role Phone Unavailable Primary Care Provider Unavailabl e Encounter Details Date Type Department Care Team (Late st Contact Info) Description 01/03/2019 Transcribed Document [facility] [place] [facility] [place] [address] ProviderGabby MD [facility] [address] Social History Tobacco Use Types Packs/Day [...] Conversion Note - Historical ProviderMD - 01/03/2019 9:33 PM CDT Electronically signed by Elsy, [facility] Conversion Pediatric Np Cerner at 10/21/2022 5:59 PM CDT documented in this encounter Plan of Treatment Not on file documented as of this encounter Visit Diagnoses Not on filedocumented in this encounter
--- OUTSIDE RECORDS SUMMARY | 2024-12-19 19:54 | XMS_ITS | Encounter Summary ---
Author Organization [employer] Address [address] [place] [address] Care Team Providers Care Release Coordinator Name Role Phone Unavailable Primary Care Provider Unavailabl e Encounter Details Date Type Department Care Team (Late st Contact Info) Description 01/04/2019 Transcribed Document [facility] [place] [facility] [place] [address] ProviderGabby MD [facility] [address] Social History Tobacco Use Types Packs/Day Years Used Date Smoking Tobacco: Never Assessed Comments Unknown Sex and Gender Information Value Date Recorded Sex Assigned at Female 12/30/2021 7:57 PM CDT Legal Sex Female 7:57 PM CDT Gender Identity Female 12/30/2021 7:57 PM CDT Sexual Orientation Not on file documented as of this encounter Miscellaneous Notes * Jdner Conversion Note - Historical ProviderMD - 01/04/2019 10:50 AM CDT CR Chest 1 Vw Portable Ordered: 01/03/2019 Modified Reason for Exam: pain 01/04/2019 08:28 01/04/2019 10:50 (JERAD FLANAGAN) No further action required documented in this encounter Plan of Treatment Not on file documented as of this encounter Visit Diagnoses Not on filedocumented in this encounter
== END ==
LOC: SL 19:53
PROVIDERS: Visit Provider Physician Assistant
DX: G47.33 Obstructive sleep apnea (adult) (pediatric) (principal); G47.36 Sleep related hypoventilation in conditions classified elsewhere
CPT/HCPCS: 95811

== ENCOUNTER 2024-12-20 09:49 | Outpatient (RCR) | payer OTHER, SELFPAY ==
--- NOTE | 2024-12-20 11:13 | HMH.OPLYMPH ---
Rehab Inpt Wound Evaluation Rehab OP Lymphedema Evaluation Start: 12/20/24 10:55 Freq: Status: Active Protocol: Document 12/20/24 10:55 BELKYS (Rec: 12/20/24 11:12 PHORPAVEL [id number]) E-signed By Nav Walden, PT Subjective/History History History This is the initial PT lymphedema eval for Ghazala Richards, 44 yowf who presents with c/o B LE increased edema x ~ 3-4 mos overall with insidious onset of symptoms. She reports increased pain with increased edema, both typically happening at the end of the day. She reports no c/o numbness or tingling at this time. She Does not currently use an compression garments. She has PMH of a -fib, mitral valve prolapse. L ACL reconstruction, R knee arthroscopic partial meniscectomy, and CCY. Subjective Subjective Currently pain is 0/10, at worst pain is 8/10. No erythema currently, but pt does report intermittent red /purple color in B LE with increased edema. 0/4 TTP noted this date. New diagnosis of No cancer in past 12 months? Lymphedema Eval Classification of Lymphedema Secondary Lymphedema Yes Stemmer's sign Stemmer's Sign no Stage of Lymphedema Lymphedema stages Stage I (Pitting edema, reduces w/ elevation, no fibrosis) Skin Changes Dry Skin Yes Taut, Shiny Skin Yes Discoloration of Yes Skin Other Changes Yes Pain Scale Pain Scale (0-10) 8 Affected Extremities Areas Affected by Right Lower Extremity,Left Lower Extremity Lymphedema/Edema Lower Extremity Measurements Right MTP Measurement (cm) 22.5 Heel Measurement (cm 29.5 ) 10 cm Proximal to 30.5 Lateral Malleoli Measurement (cm) 20 cm Proximal to 41.5 Lateral Malleoli Measurement (cm) 30 cm Proximal to 44.2 Lateral Malleoli Measurement (cm) 40 cm Proximal to 0 Lateral Malleoli Measurement (cm) 50 cm Proximal to 0 Lateral Malleoli Measurement (cm) 60 cm Proximal to 0 Lateral Malleoli Measurement (cm) Lower Extremity 168.2 Measurement Total ( cm) Left MTP Measurement (cm) 22.0 Heel Measurement (cm 29.7 ) 10 cm Proximal to 31.5 Lateral Malleoli Measurement (cm) 20 cm Proximal to 41.4 Lateral Malleoli Measurement (cm) 30 cm Proximal to 43.4 Lateral Malleoli Measurement (cm) 40 cm Proximal to 0 Lateral Malleoli Measurement (cm) 50 cm Proximal to 0 Lateral Malleoli Measurement (cm) 60 cm Proximal to 0 Lateral Malleoli Measurement (cm) Lower Extremity 168.0 Measurement Total ( cm) Manual Lymphatic Drainage Treatment Area MLD Treatment Area Right Lower Extremity,Left Lower Extremity Wound Problems/Impairments Impairments Problems/ Impaired Work Activities,Increased Edema,Lymphedema Impairmments Present,Subjective C/O Pain,Impaired Self Care/Self Management Prognosis Rehab Potential Good Comment Skilled therapy is indicated to reduce overall edema and aid reduction of pain in order to return pt to PLOF with all ADLs and work activities. Clinical Impression Consistent with Yes Diagnosis Short Term Goals Number of Weeks 2 Decrease Edema Yes: no pitting edema in the evening to B LE Decrease Subjective Yes: 610 B LE C/O Pain Decrease Girth Yes: B LE total by 5 cm ea Measurments by (cm) Cloth Tearer Goals Number of Weeks 4 Decrease Lymphedema Yes: No fibrotic edema to B LE Decrease Subjective Yes: 310 at worst B LE C/O Pain Patient to be Ind w/ Yes Advanced HEP Patient to be Ind w/ Yes Donning/[place] Compression Garments Decrease Girth Yes: B LE total by 15 cm ea Measurments by (cm) Outpatient Therapy Plan of Care Treatment Plan May Include Therapeutic Exercise Yes Including Home Exercise Program Manual Therapy Yes Techniques Neuromuscular Re- Yes education Therapeutic Yes Activities to Return to Previous Functional/Work Level ADL/Self Care Yes Education Orthotics/Bracing/ Yes Splinting Manual Lymphatic Yes Drainage Eval/Re-Eval Yes Frequency Times per week 2 Duration Number of Weeks 4 Addendums This patient is a No candidate for social or vocational rehab ? Patient/Guardian Yes verbally acknowledges understanding of treatment program and consents to further treatment? Patient/Guardian Yes verbally acknowledges understanding of diagnosis, prognosis and goals for treatment? Eval Complexity PT Charges 24628 - Moderate Complexity PHYSICIAN CERTIFICATION: I certify the specified therapy services for Ghazala Richards are required, authorized, and reviewed every 30 days.
== END 2024-12-20 23:59 | disposition home or self-care (01) ==
LOC: PT 09:49
PROVIDERS: Visit Provider Physician Assistant
DX: I89.0 Lymphedema, not elsewhere classified (principal)
CPT/HCPCS: 97140; 97162

== ENCOUNTER 2025-01-01 14:02 | Emergency (ER) | payer OTHER, SELFPAY ==
[2025-01-01] VITALS (7 sets, daily range): BP systolic 123–139; BP diastolic 85–94; PULSE 78–117; RESP 18–22; TEMP 36.6–36.8; O2SAT 97–100; BMI 31.3
--- NOTE | 2025-01-01 14:07 | ECG_ITS ---
APPROVED REPORT Exam: Resting ECG HR:113 bpm ECG Measurements Heart Rate 113 AXES QRSd 101 QRS 61 QT 319 T 28 QTc 386 Conclusion ATRIAL FIBRILLATION WITH RAPID VENTRICULAR RESPONSE LOW QRS VOLTAGE IN PRECORDIAL LEADS [QRS DEFLECTION < 1.0 mV IN CHEST LEADS] No STEMI Electronically signed by : BRANT LEON, 01/02/2025 02:31:03
--- NOTE | 2025-01-01 14:12 | XR_ITS ---
FINAL REPORT CLINICAL HISTORY: afib rvr COMPARISON: 01/11/2024 FINDINGS: The heart size is normal. The mediastinum is normal. There is no focal infiltrate or edema. There are no pleural effusions. There is no pneumothorax. There is no osseous abnormality. IMPRESSION: No acute cardiopulmonary process Reviewed, Interpreted and Dictated by Guilherme Roberts MD Transcribed by Norma Beckford Authenticated and . [facility]
--- NOTE | 2025-01-01 14:13 | ED_ITS ---
Discharge Plan Disposition Patient Disposition: Home, Self-Care Prescriptions Prescriptions: New metoprolol tartrate 25 mg tablet 25 mg PO DAILY Qty: 30 3RF apixaban 5 mg tablet 5 mg PO BID 30 Days Qty: 60 2RF Eliquis DVT-PE Treat 30D Start 5 mg (74 tabs) tablets,dose pack 5 mg PO BID Qty: 74 0RF No Action potassium chloride 20 mEq tablet extended release 20 meq PO DAILY Qty: 30 2RF furosemide [Lasix] 40 mg tablet 40 mg PO DAILY Qty: 30 5RF Referrals Follow up/Referrals: Provider,Referral, [Primary Care Provider, Medical] - See instructions Lopez Oakley MD [Staff Physician, Cardiology] - See instructions Activity Restrictions/Add. Instructions Additional Instructions/Restrictions: Call your family doctor to establish care for this visit to the emergency department and schedule follow-up within 48 hours to ensure improvement. If you have any worsening of your condition or any other concerning signs or symptoms, return to the emergency department or your primary care doctor for further evaluation. Metoprolol once daily, first dose was given here. Eliquis 10 mg twice daily for 1 week followed by 5 mg twice daily thereafter. Starter pack has been sent to the pharmacy as well as a couple months of refills after that. Clinical Impressions Clinical Impression: Atrial fibrillation with RVR Print Language Print Language: Swedish Discharge ED Provider: Maurice Gee General Adult HPI <Udya Pyle MD - Last Filed: 01/01/25 15:01> General Chief complaint: Chest Pain Stated complaint: Heart Flutter's; Chest Tightness; Dizzy' Time Seen by Provider: 01/01/25 14:05 History of Present Illness HPI narrative: Patient is a 44-year-old female with past medical history of palpitations, intermittent atrial fibrillation previously on anticoagulation and beta-blockade not on any currently who presents emergency department for evaluation of heart fluttering. She felt it today and contacted her cardiology provider who was unable to get her in for a couple of days and so she presents here for continued evaluation. No shortness of breath or cough no abdominal pain no chest pain although there is slight chest tightness no other acute complaints at this time. Please note that above description of symptoms, in this electronic medical record under categorization of recalled from ER triage doctor by RN are reflective of an initial nursing assessment, however, is not reflective of my full history and physical exam that was personally taken and clarified. Consequentially, this preceding description of symptoms, which may include the patient's categorized chief complaint in the EMR, do not reflect my personal clinical impression, and the ultimate description of history of present illness and patient stated complaints should be deferred to this section of the note. Unless stated otherwise or congruent with this section of the note, additional signs, symptoms, or incongruence should be interpreted as inaccurate with my clinical impression. Related Data Previous Rx's ?Medication ?Instructions ?Recorded potassium chloride 20 mEq 20 meq PO DAILY #30 tabs 09/26 tablet,extended release furosemide 40 mg tablet (Lasix) 40 mg PO DAILY #30 tab s 11/09/24 apixaban 5 mg (74 tabs) tablets in 5 mg PO BID #74 tab s 01/01/25 a dose pack (Eliquis DVT-PE Treat 30D Start) apixaban 5 mg tablet 5 mg PO BID 30 days #60 tabs 01/01/25 metoprolol tartrate 25 mg tablet 25 mg PO DAILY #30 ta bs 01/01/25 Allergies Allergy/AdvReac Type Severity Reaction Status Date / Time No Known Allergies Allergy Verified 12/07/24 14:35 PFS <Uday Pyle MD - Last Filed: 01/01/25 15:01> [facility] Disclaimer: The information contained in this section may have been updated after the patient was seen, as this information can be updated by other users. 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 Symptomatic PVCs PAF (paroxysmal atrial fibrillation) GERD (gastroesophageal reflux disease) Anxiety Atrial fibrillation Dyspnea Chest pain Surgical History S/P ablation of atrial fibrillation Social History Smoking Status: Former smoker tobacco type: cigarettes packs per day: 1 second hand exposure: No alcohol intake: never substance use type: marijuana current occupational status: employed Travel in the last 8 weeks?: Inside the [place] ([place]) household members: spouse and children Other 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 Have you received the Flu Vaccine for this season: No Have you received the Pneumonia Vaccine: No <Uday Pyle MD - Last Filed: 01/01/25 15:01> ROS Obtained: Yes Systems reviewed as appropriate & no additional complaints except as documented Physical Exam <Uday Pyle MD - Last Filed: 01/01/25 15:01> General General appearance: alert and in no apparent distress Head Head exam: atraumatic and normocephalic Eye Eye exam: Present PERRL and EOMI ENT ENT exam: Present mucous membranes moist Neck Neck exam: Present normal inspection Chest Chest inspection: Present normal inspection and symmetric chest wall rise Respiratory Respiratory exam: Present normal lung sounds bilaterally; Absent respiratory distress Cardiovascular Cardiovascular exam: Present tachycardia and irregular rhythm Abdominal Exam Abdominal exam: Present soft; Absent tenderness Extremities Exam Extremities exam: Present normal inspection Neurological Exam Neurological exam: Present alert Psychiatric Psychiatric exam: Present normal affect Skin Skin exam: Present warm and dry Medical Decision Making <Uday Pyle MD - Last Filed: 01/01/25 15:01> Medical Records Screening: Per USPSTF and CDC recommendations, given the prevalence of disease in our region, it is our hospital?s policy to screen for HIV and viral Hepatitis for all patients aged 18 and over and those with ongoing risk factors. Kofi Inquiry Pt receiving controlled substance: No Vital Signs: 01/01/25 14:13 01/01/25 14:19 01/01/25 14:30 Temperature 98.2 F 98.2 F Temperature Source Oral Oral Pulse Rate 117 H 87 Pulse Rate [Right] 117 H Respiratory Rate 22 22 18 Blood Pressure 139/94 H 136/85 Blood Pressure [Left Arm] 139/94 H Blood Pressure Mean 92 Blood Pressure Mean [Left Arm] 109 Blood Pressure Source Automatic Cuff Blood Pressure Source [Left Arm] Automatic Cuff Blood Pressure Position Supine Blood Pressure Position [Left Arm] Supine 02 Sat by Pulse Oximetry 98 98 97 Oxygen Delivery Method Room Air Room Air 01/01/25 15:00 Temperature Temperature Source Pulse Rate 79 Pulse Rate [Right] Respiratory Rate 18 Blood Pressure 133/89 Blood Pressure [Left Arm] Blood Pressure Mean 101 Blood Pressure Mean [Left Arm] Blood Pressure Source Blood Pressure Source [Left Arm] Blood Pressure Position Blood Pressure Position [Left Arm] 02 Sat by Pulse Oximetry 98 Oxygen Delivery Method Lab Data Lab Results 01/01/25 14:15: WBC 10.8, RBC 4.30, Hgb 12.9, Hct 38.4, MCV 89.3, MCH 30.0, MCHC 33.6, RDW 13.2, Plt Count 369, MPV 10.3, Neut % (Auto) 64.7, Lymph % (Auto) 26.7, [place] % (Auto) 5.1, Eos % (Auto) 2.5, Baso % (Auto) 0.7, Neut # (Auto) 7.0, Lymph # (Auto) 2.9, [place] # (Auto) 0.6, Eos # (Auto) 0.3, Baso # (Auto) 0.1, D- Dimer 0.58 H, Sodium 139, Potassium 3.5, Chloride 106, Carbon Dioxide 23, Anion Gap 13.5, BUN 13, Creatinine 0.70, Estimated Creat Clear 144, Estimated GFR 90, Est GFR ( Amer) 109, Glucose 110 H, Calcium 8.8, Magnesium 1.6, Total Bilirubin 0.2, AST 26, ALT 18, Alkaline Phosphatase 52, Troponin I < 0.01, Total Protein 7.5, Albumin 4.3, Globulin 3.2, Albumin/Globulin Ratio 1.3, TSH 2.05, Thyroxine (T4) 9.4 01/01/25 14:15 01/01/25 14:15 Orders (Tests/Meds): ORDERS Category Date Time Status CXR --portable [XR chest portable] Stat Exams 01/01/25 14:12 Completed CBC w/Auto Diff [Complete Blood Count Auto Diff] Stat Lab 01/01/25 14:15 Completed CMP [Comprehensive Metabolic Panel] Stat Lab 01/01/25 14:15 Completed D-Dimer Stat Lab 01/01/25 14:15 Completed HIV Combo Stat Lab 01/01/25 14:19 Ordered Hepatitis C Ab Qual. W/ RFX Stat Lab 01/01/25 14:19 Ordered MG [Magnesium] Stat Lab 01/01/25 14:15 Completed T4 (Thyroxine) Stat Lab 01/01/25 14:15 Completed TSH [Thyroid Stimulating Hormone] Stat Lab 01/01/25 14:15 Completed Trop I [Troponin I] Stat Lab 01/01/25 14:15 Completed ECG Data Tracing #1: Independently inter by me rate is 113, rhythm is irregular, axis is normal, no ST elevation in anatomical contiguous leads, QTc 386. Medical Decision Narrative: In summary patient is a 44-year-old female past medical history described above presents emergency department for evaluation of heart fluttering, chest tightness. Patient is hemodynamically stable nontoxic-appearing upon arrival, afebrile. Patient has a irregularly irregular rhythm atrial fibrillation rapid ventricular spots waxing waning between 110 and 130 bpm. Differential includes primary cardiac electrical conduction problem, pulmonary embolism, electrolyte derangement, among others. No concern for hypovolemia or infection based on history and physical exam. Workup will be conducted with hematologic labs two- view chest x-ray D-dimer EKG, troponins. Initial interventions will be deferred until screening for pulmonary embolism is complete. Per review of cardiology note earlier this month patient had mild mitral valve prolapse with normal cords in 2017, history of paroxysmal A-fib and symptomatic palpitations status post multiple monitoring she has had brief SVT and symptomatic PVCs but no A-fib on those monitors. History of ablation in [address] Barbour. I discussed case with Dr. Oakley although there may be a couple of P waves this is largely fibrillation and will be treated as such. D-dimer pending at time of transfer of care to the oncoming physician, Dr. Cuba. I discussed case with cardiology Alejandro Gonzalez if screening for pulmonary embolism is negative patient should be started on 25 mg of metoprolol daily and Eliquis 5 mg twice a day and will follow-up with Ulises Wilson on . <Maurice Gee MD - Last Filed: 01/01/25 15:41> Vital Signs: 01/01/25 14:13 01/01/25 14:19 01/01/25 14:30 Temperature 98.2 F 98.2 F Temperature Source Oral Oral Pulse Rate 117 H 87 Pulse Rate [Right] 117 H Respiratory Rate 22 22 18 Blood Pressure 139/94 H 136/85 Blood Pressure [Left Arm] 139/94 H Blood Pressure Mean 92 Blood Pressure Mean [Left Arm] 109 Blood Pressure Source Automatic Cuff Blood Pressure Source [Left Arm] Automatic Cuff Blood Pressure Position Supine Blood Pressure Position [Left Arm] Supine 02 Sat by Pulse Oximetry 98 98 97 Oxygen Delivery Method Room Air Room Air 01/01/25 15:00 Temperature Temperature Source Pulse Rate 79 Pulse Rate [Right] Respiratory Rate 18 Blood Pressure 133/89 Blood Pressure [Left Arm] Blood Pressure Mean 101 Blood Pressure Mean [Left Arm] Blood Pressure Source Blood Pressure Source [Left Arm] Blood Pressure Position Blood Pressure Position [Left Arm] 02 Sat by Pulse Oximetry 98 Oxygen Delivery Method Lab Data Lab Results 01/01/25 14:15: WBC 10.8, RBC 4.30, Hgb 12.9, Hct 38.4, MCV 89.3, MCH 30.0, MCHC 33.6, RDW 13.2, Plt Count 369, MPV 10.3, Neut % (Auto) 64.7, Lymph % (Auto) 26.7, [place] % (Auto) 5.1, Eos % (Auto) 2.5, Baso % (Auto) 0.7, Neut # (Auto) 7.0, Lymph # (Auto) 2.9, [place] # (Auto) 0.6, Eos # (Auto) 0.3, Baso # (Auto) 0.1, D- Dimer 0.58 H, Sodium 139, Potassium 3.5, Chloride 106, Carbon Dioxide 23, Anion Gap 13.5, BUN 13, Creatinine 0.70, Estimated Creat Clear 144, Estimated GFR 90, Est GFR ( Amer) 109, Glucose 110 H, Calcium 8.8, Magnesium 1.6, Total Bilirubin 0.2, AST 26, ALT 18, Alkaline Phosphatase 52, Troponin I < 0.01, Total Protein 7.5, Albumin 4.3, Globulin 3.2, Albumin/Globulin Ratio 1.3, TSH 2.05, Thyroxine (T4) 9.4 Orders (Tests/Meds): ORDERS Category Date Time Status CXR --portable [XR chest portable] Stat Exams 01/01/25 14:12 Completed CBC w/Auto Diff [Complete Blood Count Auto Diff] Stat Lab 01/01/25 14:15 Completed CMP [Comprehensive Metabolic Panel] Stat Lab 01/01/25 14:15 Completed D-Dimer Stat Lab 01/01/25 14:15 Completed HIV Combo Stat Lab 01/01/25 14:19 Ordered Hepatitis C Ab Qual. W/ RFX Stat Lab 01/01/25 14:19 Ordered MG [Magnesium] Stat Lab 01/01/25 14:15 Completed T4 (Thyroxine) Stat Lab 01/01/25 14:15 Completed TSH [Thyroid Stimulating Hormone] Stat Lab 01/01/25 14:15 Completed Trop I [Troponin I] Stat Lab 01/01/25 14:15 Completed Medical Decision Narrative: Independent interpretation of workup withIn summary patient is a 44-year-old female past medical history described above presents emergency department for evaluation of heart fluttering, chest tightness. Patient is hemodynamically stable nontoxic-appearing upon arrival, afebrile. Patient has a irregularly irregular rhythm atrial fibrillation rapid ventricular spots waxing waning between 110 and 130 bpm. Differential includes primary cardiac electrical conduction problem, pulmonary embolism, electrolyte derangement, among others. No concern for hypovolemia or infection based on history and physical exam. Workup will be conducted with hematologic labs two-view chest x-ray D-dimer EKG, troponins. Initial interventions will be deferred until screening for pulmonary embolism is complete. Per review of cardiology note earlier this month patient had mild mitral valve prolapse with normal cords in 2017, history of paroxysmal A-fib and symptomatic palpitations status post multiple monitoring she has had brief SVT and symptomatic PVCs but no A-fib on those monitors. History of ablation in [address] Barbour. I discussed case with Dr. Oakley although there may be a couple of P waves this is largely fibrillation and will be treated as such. D-dimer pending at time of transfer of care to the oncoming physician, Dr. Cuba. I discussed case with cardiology Alejandro Gonzalez if screening for pulmonary embolism is negative patient should be started on 25 mg of metoprolol daily and Eliquis 5 mg twice a day and will follow-up with Ulises Wilson on . Marlen: I assumed primary responsibility for this patient after signout from previous physician. On my evaluation, patient absolutely no acute distress. Without intervention, patient's heart rate in the 80s and 90s. Oxygen saturation 99% on room air. Speaking full sentences, lungs are clear. Independent interpretation of workup with nonactionable CBC or chemistry, troponin negative. Patient's TSH and T4 nonactionable. D-dimer elevated 0.58, but years criteria negative. PE effectively ruled out. Even if patient did have pulmonary embolus, theoretical PESI score was calculated and patient still low to very low risk. Per cardiology, meds to be sent to pharmacy. First dose of Eliquis and metoprolol given here. Discharged in hemodynamically stable condition with close return precautions. Because patient at baseline without signs or symptoms of clinical decompensation, deemed appropriate for discharge. Results were relayed to patient who voiced understanding and were agreeable to outpatient management and follow up. I discussed my clinical impression with patient and answered all questions. At this time, the evidence for any other entities in the differential is insufficient to warrant any further testing or ED observation. This was explained as well. Advisory was given that persistent or worsening symptoms require further evaluation. I confirmed the understanding of this discussion. Critical Care <Uday Pyle MD - Last Filed: 01/01/25 15:01> Critical Care Time Critical Care Time: No
--- OUTSIDE RECORDS SUMMARY | 2025-01-01 14:19 | XMS_ITS | Encounter Summary ---
Author Organization [employer] ([place], [place], [place], [place]) Address [address] [place] [address] Care Team Providers Care Resident Inspector Name Role Phone Unavailable Primary Care Provider Unavailabl e Encounter Details Date Type Department Care Team (Late st Contact Info) Description 01/03/2019 Transcribed Document [facility] [place] Family Medicine [address] [place] [address] ProviderGabby MD [address] [place] [address] Social History Tobacco Use Types [...] Communication Barrier : None Primary Language : Liberian Any Spiritual/Cultural Needs or Requests : No [...] Cardiovascular ASMT, ED Cardiovascular Assessment WDL : CARIE CRISTIANO DIOR RN - 01/03/2019 18:38 EDT Respiratory Respiratory Assessment WDL : CARIE CRISTIANO DIOR RN - 01/03/2019 18:38 EDT Gastrointestinal ED Gastrointestinal Assessment WDL : CRISTIANO MONREAL RN - 01/03/2019 18:38 EDT Genitourinary Assessment, ED Genitourinary Assessment WDL : CRISTIANO MONREAL RN - 01/03/2019 18:38 EDT Musculoskeletal Musculoskeletal Assessment WDL : CRISTIANO MONREAL RN - 01/03/2019 18:38 EDT Integumentary Assessment Skin Description : Dry Skin Temperature : Warm Integumentary Assessment WDL : [facility] Skin Turgor : Elastic, Good CRISTINAO DIOR RN - 01/03/2019 18:38 EDT Neurologic [...] commands Julia Best Verbal Response : Oriented Julia Eye Opening Response : Spontaneous [place] Coma Score : 15 CRISTIANO DIOR RN - 01/03/2019 18:38 EDT Electronically signed by [facility] Conversion Billboard Erector Cerner at 10/21/2022 6:25 PM CDT documented in this encounter Plan of Treatment Not on file documented as of this encounter Visit Diagnoses Not on filedocumented in this encounter
--- OUTSIDE RECORDS SUMMARY | 2025-01-01 14:19 | XMS_ITS | Encounter Summary ---
Author Organization [employer] ([place], [place], [place], [place]) Address [address] [place] [address] Care Team Providers Care Housing Installer Name Role Phone Unavailable Primary Care Provider Unavailabl e Encounter Details Date Type Department Care Team (Late st Contact Info) Description 01/03/2019 Transcribed Document [facility] [place] Family Medicine [address] [place] [address] ProviderGabby MD [address] [place] [address] Social History Tobacco Use Types [...] 01/03/2019 9:33 PM CDT Electronically signed by [facility] Conversion Small Engine Mechanic Cerner at 10/21/2022 5:59 PM CDT documented in this encounter Plan of Treatment Not on file documented as of this encounter Visit Diagnoses Not on filedocumented in this encounter
--- OUTSIDE RECORDS SUMMARY | 2025-01-01 14:19 | XMS_ITS | Encounter Summary ---
Author Organization [employer] ([place], [place], [place], [place]) Address [address] [place] [address] Care Team Providers Care Coffee Maker Servicer Name Role Phone Unavailable Primary Care Provider Unavailabl e Encounter Details Date Type Department Care Team (Late st Contact Info) Description 01/04/2019 Transcribed Document [facility] [place] Family Medicine [address] [place] [address] ProviderGabby MD [address] [place] [address] Social History Tobacco Use Types Packs/Day Years Used Date Smoking Tobacco: Never Assessed Comments Unknown Sex and Gender Information Value Date Recorded Sex Assigned at Female 12/30/2021 7:57 PM CDT Legal Sex Female 7:57 PM CDT Gender Identity Female 12/30/2021 7:57 PM CDT Sexual Orientation Not on file documented as of this encounter Miscellaneous Notes * [employer] Conversion Note - Historical ProviderMD - 01/04/2019 10:50 AM CDT CR Chest 1 Vw Portable Ordered: 01/03/2019 Modified Reason for Exam: pain 01/04/2019 08:28 01/04/2019 10:50 (JERAD FLANAGAN) No further action required Electronically signed by Fabiola Chin Conversion Rocket Propellant Plant Supervisor Cerner at 10/21/2022 6:17 PM CDT documented in this encounter Plan of Treatment Not on file documented as of this encounter Visit Diagnoses Not on filedocumented in this encounter
--- OUTSIDE RECORDS SUMMARY | 2025-01-01 14:19 | XMS_ITS | Encounter Summary ---
Author Organization [employer] ([place], [place], [place], [place]) Address [address] [place] [address] Care Team Providers Care Travel Consultant Name Role Phone Unavailable Primary Care Provider Unavailabl e Encounter Details Date Type Department Care Team (Late st Contact Info) Description 01/03/2019 Transcribed Document [facility] [place] Family Medicine [facility] [place] [address] ProviderGabby MD [address] [place] [address] Social History Tobacco Use Types Packs/Day Years Used Date Smoking Tobacco: Never Assessed Comments Unknown Sex and Gender Information Value Date Recorded Sex Assigned at Female 12/30/2021 7:57 PM CDT Legal Sex Female 7:57 PM CDT Gender Identity Female 12/30/2021 7:57 PM CDT Sexual Orientation Not on file documented as of this encounter Miscellaneous Notes * Cerner Conversion Note - Gabby Graves MD - 01/03/2019 6:45 PM CDT Patient: GHAZALA RICHARDS Age: 38 years Sex: Female : 1980 Associated Diagnoses: Nonspecific chest pain; Acute stress reaction; Hypertension; History of panic disorder Author: TERESO LAZO MD Basic Information Time seen: Date & time 01/03/2019 18:45:00, Voice recognition / band bias machine operator technology used for some documentation in this [...] attacks . History of Present Illness Ms. Richards, presents via EMS to room #9, with male meter repairer in attendance. She reports that she's been [...] to do at this time. Her male meter repairer called the ambulance who transported her here [...] EDT Height Source Measured Height Entry Format [place] Height/Length, YI (ft) 5 ft Height/Length YI 6 Inch CLINICALHEIGHT 167.64 cm [place] Body Weight 58.88 kg Weight Source, ED Standing scale Weight Entry Format [place] Weight Micronesian lb 160 lb CLINICALWEIGHT 72.73 kg Body [...] ED Adult Triage: ED Clinical Reconciliation: ED journeyman machinist: Haldol: 1 mg, IV Push, 1-Time Normal Saline Bolus: 1,000 mL, 100 mL/Hr, IV Piggyback, 1-Time ProBNP: Saline Lock Insert: Troponin I Ultra: . Electrocardiogram: Time 01/03/2019 18:45:00, rate 75, Ectopy Occasional, premature atrial contractions, , With aberrant conduction, P wave and LA interval WNL, QT interval WNL, QRS interval [...] educational materials: Nonspecific Chest Pain, Stress, Hypertension, [id number], Preventing Hypertension, Managing Your Hypertension, DASH Eating Plan. Limitations: Limited activity. Follow up with: [facility] As needed Patient stated she is currently established with [facility]. Feel free to contact our Patient Resource Center at [phone] for any future Physician scheduling needs. ; GALO AVILA Within 2 to 3 days Your blood [...]
--- OUTSIDE RECORDS SUMMARY | 2025-01-01 14:19 | XMS_ITS | Referral Summary ---
Author Organization [employer] ([place], [place], [place], [place]) Address [address] [place] [address] Care Team Providers Care Horticultural Specialty Grower Inside Name Role Phone Unavailable Primary Care Provider [...]
--- OUTSIDE RECORDS SUMMARY | 2025-01-01 14:19 | XMS_ITS | Patient Health Record ---
Author Organization [id number] 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 [employer] Problems Problem Type SNOMED Code ICD Code Onset Dates Problem Status W/U Status Risk Notes Problem [id number] Tear of medial meniscus of left knee, current, unspecified tear type, initial encounter (S83.242A) Active confirmed Plan Of Treatment Pending Test Test Name Order Date Basic Metabolic Panel([facility]) 07/07/19 CBC without Differential([facility]) 09/2022 Pathology Handling Charge([facility]) 07/08 Insurance Providers Payer Name Payer Address Payer Phone Subscriber Number Group Number Insured Name Patient Relationship to Insured Coverage Start Date Coverage End Date [facility] [address] [place], [place] [id number] Ghazala Richards Self - patient is the insured 0 Medications Administered Medication Instructions Date of Administration Dosage Notes Kenalog 06/03/2022 2 mL Medical (General) History 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 History ICD Code heart disease htn irregular heart beat Surgical History Surgery Date(Month/Year) ACL repair 2013 tubal 2004 gall bladder 2012 imhlashin 2016 roberta recorder put in 2017
--- OUTSIDE RECORDS SUMMARY | 2025-01-01 14:19 | XMS_ITS | Encounter Summary ---
Author Organization [employer] ([place], [place], [place], [place]) Address [address] [place] [address] Care Team Providers Care Light Equipment Operator Name Role Phone Unavailable Primary Care Provider Unavailabl e Encounter Details Date Type Department Care Team (Late st Contact Info) Description 01/03/2019 Transcribed Document [facility] Family Medicine [address] [place] [address] ProviderGabby MD [address] [place] [address] Social History Tobacco Use Types [...] Conversion Note - Historical ProviderMD - 01/03/2019 9:50 PM CDT ED [...]
--- OUTSIDE RECORDS SUMMARY | 2025-01-01 14:19 | XMS_ITS | Clinical Summary ---
Author Organization [employer] ([place], [place], [place], [place]) Address [address] [place] [address] Care Team Providers Care Body Joiner Name Role Phone Unavailable Primary Care Provider [...]
--- OUTSIDE RECORDS SUMMARY | 2025-01-01 14:19 | XMS_ITS | Encounter Summary ---
Author Organization [employer] ([place], [place], [place]) Address [address] [place] [address] Care Team Providers Care Sales Training Coordinator Name Role Phone Unavailable Primary Care Provider Unavailabl e Encounter Details Date Type Department Care Team (Late st Contact Info) Description 01/03/2019 Transcribed Document [facility] Family Medicine [address] [place] [address] ProviderGabby MD [address] [place] [address] Social History Tobacco Use Types [...] Gabby ProviderMD - 01/03/2019 9:42 [place] [address] GHAZALA POWELL :1980 Visit Time:01/03/2019 Your Visit Summary Your Care Team Admitting Physician - ROLA HERNANDEZ MD-JUDIT Attending Physician - ROLA HERNANDEZ MD-JUDIT Primary Care Physician - GALO AVILA (REF)MORIS Referring Physician - MARIA TERESA, SELF REFERRED [...] coughing up blood and/or persistent vomiting. Where: [place] [address] Business (1) Follow Up with [facility] When Within As needed Comments Patient stated she is currently established with Galo Avila. Feel free to contact our Patient Resource Center at [phone] for any future Physician scheduling needs. Allergies [...] your health care provider or diet and nutrition aide (dietitian) to adjust your eating plan to [...] week. ? Heart-healthy fats. Healthy fats called [place]-3 fatty acids are found in foods such [...] Dairy Whole or 2% milk, cream, and qvoy-pnq-cwhv. Whole or full-fat cream cheese. Whole-fat or [...] information: ??? National Heart, Lung, and Blood [place]: www.nhlbi.nih.gov ??? [place] Heart Association: www.heart.org Summary ??? The DASH [...] your health care provider or diet and nutrition aide (dietitian) to adjust your eating plan to your individual calorie needs. This information is not intended to replace advice given to you by your health care provider. Make sure you discuss any questions you have with your health care provider. Document Released: 06/09/2012 Document Revised: 06/14/2017 Document Reviewed: 06/14/2017 [employer] Interactive Patient Education ?? [address]. Managing Your Hypertension Hypertension is commonly called [...] 03/15/2013 Document Revised: 05/19/2017 Document Reviewed: 05/19/2017 [employer] Interactive Patient Education ?? 2019 [employer]. Preventing Hypertension Hypertension, commonly called high [...] to take more than one medicine. Take bnlg-vso-feazbhc and prescription medicines only as told by your health care provider. Where to find support Your health care provider can help you prevent hypertension and help you keep your blood pressure at a healthy level. Your local hospital or your community may also provide support services and prevention programs. The [place] Heart Association offers an online support network at: http://supportnetwork.heart.org/njeg-icoxi-kktngihb Where to find more information Learn more about hypertension from: ??? National Heart, Lung, and Blood [place]: www.nhlbi.nih.gov/health/health-topics/topics/hbp ??? Centers for Disease Control and Prevention: www.cdc.gov/bloodpressure ??? [place] Academy of Family Physicians: http://familydoctor.org/familydoctor/en/diseases-conditions/mfzn-prkel-jcwtfxy e.printerview.all.html Learn more about the DASH diet from: ??? National Heart, Lung, and Blood [place]: www.nhlbi.nih.gov/health/health-topics/topics/dash Contact a health care provider if: [...] 07/05/2016 Document Revised: 03/01/2017 Document Reviewed: 03/01/2017 [employer] Interactive Patient Education ?? 2019 [employer]. Hypertension Hypertension is another name for [...] doctor. This is important. Medicines ??? Take uljq-wfu-zuxfuxz and prescription medicines only as told by [...] 12/07/2008 Document Revised: 05/19/2017 Document Reviewed: 05/19/2017 [employer] Interactive Patient Education ?? 2019 [employer]. Stress Stress is a normal reaction [...] These relax the body and mind. The whtiman is to find one or more that [...] urine clear or pale yellow. ??? Take cozy-iud-ggvrsso and prescription medicines only as told by [...] 12/15/2001 Document Revised: 08/11/2017 Document Reviewed: 08/11/2017 [employer] Interactive Patient Education ?? 2019 [employer]. Nonspecific Chest Pain Chest pain can [...] you start to feel better. ??? Take dxok-cll-xzhurhf and prescription medicines only as told by [...] 03/31/2006 Document Revised: 03/15/2017 Document Reviewed: 03/15/2017 [employer] Interactive Patient Education ?? [address]. Emergency Awareness and Preventative Care STROKE is [...] Assistance with quitting is available by contacting 7-352-PPCT-NOW. This is a free resource providing counseling, [...] was given the opportunity to ask questions. Patient/Architecture Internship Name: Patient/Architecture Internship Signature: Relationship to Patient: Clinician/Hospital Architecture Internship Signature: Please Provide a Telephone Number Where You Can Be Reached: Is it Permissible To Leave a Message? Date: documented in this encounter Plan of Treatment Not on file documented as of this encounter Visit Diagnoses Not on filedocumented in this encounter
--- OUTSIDE RECORDS SUMMARY | 2025-01-01 14:19 | XMS_ITS | Encounter Summary ---
Author Organization [employer] ([place], [place], [place], [place]) Address [address] [place] [address] Care Team Providers Care Hearing Aid Dispenser Name Role Phone Unavailable Primary Care Provider Unavailabl e Encounter Details Date Type Department Care Team (Late st Contact Info) Description 01/03/2019 Transcribed Document [facility] Family Medicine [address] [place] [address] ProviderGabby MD [address] [place] [address] Social History Tobacco Use Types [...] : 2 - Emergent Tracking Group : [facility] ED [facility] CRISTIANO DIOR RN - 01/03/2019 18:34 EDT Mode of Arrival : Stretcher Transported to ED by : Ambulance/ALS EMS Service : [facility] To Room Via : Stretcher Accompanied By [...] 01/03/2019 18:36:37 EDT) Problems(Active) Anxiety (SNOMED CT :27766595 ) Name of Problem: Anxiety ; Recorder: BRIAN SHAH RN; Confirmation: Confirmed ; Classification: Medical ; Code: 01402604 ; Contributor System: Zubka ; Last Updated: 01/18/2018 20:19 EDT ; Life Cycle Date: 01/18/2018 ; Life Cycle Status: Active ; Vocabulary: SNOMED CT Irregular heart rate (SNOMED CT :338857466 ) Name of Problem: Irregular heart rate ; Recorder: BRIAN SHAH RN; Confirmation: Confirmed ; Classification: Medical ; Code: 261177345 ; Contributor System: CentrlChart ; Last Updated: 01/18/2018 20:20 EDT ; Life Cycle Date: 01/18/2018 ; Life Cycle Status: Active ; Vocabulary: SNOMED CT [place] (myocardial infarction) (SNOMED CT :72333729 ) Name of Problem: [place] (myocardial infarction) ; Recorder: BRIAN SHAH RN; Confirmation: Confirmed ; Classification: Medical ; Code: 68103230 ; Contributor System: Zubka ; Last Updated: 01/18/2018 20:19 EDT ; Life Cycle Date: 01/18/2018 ; Life Cycle Status: Active ; Vocabulary: SNOMED CT Diagnoses(Active) Chest pressure Date: 01/03/2019 ; Diagnosis Type: Reason For Visit ; Confirmation: Complaint of ; Clinical Dx: Chest pressure ; Classification: Medical ; Clinical Service: Emergency medicine ; Code: PNED ; Probability: 0 ; Diagnosis Code: [id number] ED Height and Weight Height Source : Measured Height Entry Format : [place] Height, Feet : 5 ft(Converted to: 152 cm, 60 Inch) Height, Inches : 6 Inch(Converted to: 0 ft 6 Inch, 15.24 cm) Clinical Height : 167.64 cm Weight Source, ED : Standing scale Weight Entry Format : [place] Weight, Pounds : 160 lb Clinical Dosing Weight : 72.73 kg Body Surface Area (BSA) : 1.82 m2 Body Mass Index : 25.9 kg/m2 (HI) [place] Body Weight (IBW) : 58.88 kg CRISTIANO [...]
[2025-01-01 14:21] LABS: Basophils # 0.1 K/mm3 (0-0.2); Basophils % 0.7 % (0.1-2.0); Eosinophils # 0.3 Kmm3 (0.0-0.4); Eosinophils % 2.5 % (0.1-12.0); Hematocrit 38.4 % (37.0-47.0); Hemoglobin 12.9 g/dL (12.2-16.2); Immature Granulocytes # 0.03 10^3uL; Immature Granulocytes % 0.3 %; Lymphocytes # 2.9 K/mm3 (0.7-4.5); Lymphocytes % 26.7 % (10-50); Mean Corpuscular HGB Conc 33.6 g/dL (31.8-35.4); Mean Corpuscular Volume 89.3 fl (81-99); Mean Platelet Volume 10.3 fl (7.4-10.4); Monocytes # 0.6 K/mm3 (0.1-1.0); Monocytes % 5.1 % (1.7-9.3); Neutrophils % 64.7 % (37.0-80.0); Nucleated Red Blood Cells # 0 10^3/uL; Nucleated Red Blood Cells % 0 %; Platelet Count 369 K/mm3 (142-424); Red Cell Distribution Width 13.2 % (11.5-17.5); Red Cell Distribution Width-SD 43.2 fL; White Blood Count 10.8 K/mm3 (4.8-10.8)
--- NOTE | 2025-01-01 14:22 | PC.NURSE ---
on phone with alphonse
[2025-01-01 14:28] LABS: Albumin Level 4.3 g/dl (3.5-5.0); Chloride 106 mmol/L (98-107); Potassium 3.5 mmoL/L (3.5-5.1); Sodium 139 mmol/L (136-145)
[2025-01-01 14:31] LABS: Alanine Aminotransferase 18 U/L (12-78); Albumin/Globulin Ratio 1.3 (1.1-1.8); Alkaline Phosphatase 52 U/L (38-126); Anion Gap 13.5 mEq/L (5-15); Aspartate Amino Transferase 26 U/L (14-36); Bilirubin,Total 0.2 mg/dl (0.2-1.3); Blood Urea Nitrogen 13 mg/dl (7-17); Calcium 8.8 mg/dl (8.4-10.2); Carbon Dioxide 23 mmol/L (22.0-30.0); Creatinine Clearance Estimated 144 mL/min (50-200); Estimated Glomerular Filt Rate 90 ml/min (>60); GFR (African American) 109 ML/MIN (>60); Globulin 3.2 g/dL (1.3-3.2); Glucose 110 mg/dl (74-100); Total Protein,Serum 7.5 g/dl (6.3-8.2)
[2025-01-01 14:32] LABS: Magnesium 1.6 mg/dl (1.6-2.3)
--- NOTE | 2025-01-01 14:46 | PC.NURSE ---
Eleonora from cardiology is down in the ER at patients bedside.
[2025-01-01 14:49] LABS: T4 (Thyroxine) 9.4 ug/dl (5.53-11.0)
[2025-01-01 14:50] LABS: Troponin I < 0.01 ng/ml (0.00-0.034)
--- NOTE | 2025-01-01 14:51 | PC.NURSE ---
resp called for 2 week event monitor
--- NOTE | 2025-01-01 14:52 | EXP.CARD.CON ---
History of Present Illness History of Present Illness Consult date: 01/01/25 Requesting physician: Uday Pyle Chief complaint: Palpitations History of present illness: Ms. Carrillo is a 44-year-old white female with a past medical history of mild mitral valve prolapse, normal Cors in 2017, hyperlipidemia, paroxysmal atrial fibrillation status post [place] [address] Barbour who presented to emergency department with complaints of palpitations and shortness of breath off and on for a few weeks. Patient denies chest pain, she reports chest tightness with heart fluttering. EKG upon arrival to ER shows A-fib RVR at a rate of 113. Labs are as follow: WBC 10.8, hemoglobin 12.9, sodium 139, potassium 3.5, creatinine 0.7, troponin negative. D-dimer is pending. TSH is pending. Chest x-ray is pending. Cardiology was asked to evaluate for rate control and to initiate oral anticoagulation. [facility] Disclaimer: The information contained in this section may have been updated after the patient was seen, as this information can be updated by other users. 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 Symptomatic PVCs PAF (paroxysmal atrial fibrillation) GERD (gastroesophageal reflux disease) Anxiety Atrial fibrillation Dyspnea Chest pain Surgical History S/P ablation of atrial fibrillation Social History Smoking Status: Former smoker tobacco type: cigarettes packs per day: 1 second hand exposure: No alcohol intake: never substance use type: marijuana current occupational status: employed Travel in the last 8 weeks?: [place] household members: spouse and children Have you lived/traveled outside US in past 30 days?: No Contact w/someone who lives/traveled outside US past 30 days?: No Exposure to someone with infectious disease in past 14 days?: No Do you have a fever (greater than 100.4 F or 38 C)?: No Have you tested positive for COVID-19?: No Exposed to someone with COVID-19 in past 14 days?: No Do you have a sore throat?: No Do you have a cough?: No Do you have any weakness?: No Do you have any diarrhea?: No Are you experiencing any unusual bleeding?: No Do you have any muscle aches/pain?: No Do you have any abdominal pain?: No Are you experiencing loss of taste or smell?: No Review of Systems Review of Systems Review of systems:: pertinent systems reviewed and negative unless documented below Constitutional Constitutional: Reports system reviewed and no additional complaints, except as documented *Cardiovascular Cardiovascular: Reports rapid heart rate *Respiratory Respiratory: Reports system reviewed and no additional complaints, except as documented *Gastrointestinal Gastrointestinal: Reports system reviewed and no additional complaints, except as documented *Neurologic Neurologic: Reports system reviewed and no additional complaints, except as documented and Denies confusion Psychiatric Psychiatric: Reports system reviewed and no additional complaints, except as documented and Denies confusion Exam Data for Last 24 hours Vital signs and Labs for Last 24 Hours: Temp Pulse Resp BP Pulse Ox O2 Del Method 98.2 F 117 H 22 139/94 H 98 Room Air 01/01/25 14:19 01/01/25 14:19 01/01/25 14:19 01/01/25 14:19 01/01/25 14:19 01/01/25 14:19 Laboratory Results - last 24 hr 01/01/25 14:15: WBC 10.8, RBC 4.30, Hgb 12.9, Hct 38.4, MCV 89.3, MCH 30.0, MCHC 33.6, RDW 13.2, Plt Count 369, MPV 10.3, Neut % (Auto) 64.7, Lymph % (Auto) 26.7, [place] % (Auto) 5.1, Eos % (Auto) 2.5, Baso % (Auto) 0.7, Neut # (Auto) 7.0, Lymph # (Auto) 2.9, [place] # (Auto) 0.6, Eos # (Auto) 0.3, Baso # (Auto) 0.1, Sodium 139, Potassium 3.5, Chloride 106, Carbon Dioxide 23, Anion Gap 13.5, BUN 13, Creatinine 0.70, Estimated Creat Clear 144, Estimated GFR 90, Est GFR ( Amer) 109, Glucose 110 H, Calcium 8.8, Magnesium 1.6, Total Bilirubin 0.2, AST 26, ALT 18, Alkaline Phosphatase 52, Troponin I < 0.01, Total Protein 7.5, Albumin 4.3, Globulin 3.2, Albumin/Globulin Ratio 1.3, Thyroxine (T4) 9.4 I & O for Last 24 hours: Intake & Output 12/29/24 12/30/24 12/31/24 01/01/25 23:59 23:59 23:59 23:59 Weight 200 lb Constitutional Constitutional: no acute distress *Routine Respiratory Exam Respiratory: Present CTA bilaterally and symmetric chest movement *Routine Cardiovascular Exam Cardiovascular: Present RRR, Normal S1 and Normal S2 *Routine Abdominal Exam Abdominal: Present soft and normoactive bowel sounds; Absent tenderness *Routine Extremities Exam Extremities: Present edema, full ROM and normal capillary refill Comments: Bilateral lower extremity chronic lymphedema *Routine Skin Exam Skin: Present intact, dry and warm Detailed Neck Exam: Thyroids Thyroid: Absent bruit Meds Home Medications and Allergies Home Medications ?Medication ?Instructions ?Recorded ?Confirmed ?Type potassium chloride 20 mEq 20 meq PO DAILY #30 tabs 10/05/24 12/07/24 Rx tablet,extended release furosemide 40 mg tablet (Lasix) 40 mg PO DAILY #30 tabs 11/09/24 12/07/24 Rx New Prescriptions to Start Prescriptions: Allergies Allergy/AdvReac Type Severity Reaction Status Date / Time No Known Allergies Allergy Verified 12/07/24 14:35 Assessment and Plan *Assessment and plan (1) Atrial fibrillation with RVR: Status: Acute Category: Medical Code(s): I48.91 - Unspecified atrial fibrillation Plan A-fib RVR Chadsvasc score 2 (HTN and Female) History of A-fib status post ablation HTN EKG shows A-fib RVR Troponin negative D-dimer pending Once PE is ruled out can start patient on Toprol 25 mg p.o. daily for rate control Start Eliquis 5 mg p.o. twice daily 2-week event monitor CV summary 01/01/2025: Once pulmonary embolism is ruled out patient can be discharged home on Toprol 25 mg p.o. daily and start Eliquis 5 mg p.o. twice daily. Please DC patient home to 2-week event monitor and have patient follow-up in cardiology clinic on with Ulises at 10 AM for further evaluation.
[2025-01-01 14:57] LABS: D-Dimer 0.58 ug/mL (0.0-0.5)
[2025-01-01 15:02] LABS: Thyroid Stimulating Hormone 2.05 uIU/mL (0.465-4.68)
--- NOTE | 2025-01-01 15:08 | PC.NURSE ---
resp at bedside for event monitor
--- NOTE | 2025-01-01 15:36 | PC.NURSE ---
care management called for help with pre auth for pts kalynis
[2025-01-01] MEDS: METOPROLOL TARTRATE 50MG TABLET 25 MG PO (16:07)
[2025-01-01] MEDS: APIXABAN 5MG TABLET 10 MG PO (16:07)
[2025-01-01 17:35] LABS: HIV Combo NEGATIVE (Negative)
[2025-01-01 17:42] LABS: Hepatitis C Ab Qual. W/ RFX NEGATIVE (Negative)
== END 2025-01-01 16:27 | disposition home or self-care (01) ==
PROVIDERS: Emergency Medicine; Emergency Provider Emergency Medicine
DX: I48.91 Unspecified atrial fibrillation (principal); R42 Dizziness and giddiness; Z87.891 Personal history of nicotine dependence
CPT/HCPCS: 71045; 80053; 83735; 84436; 84443; 84484; 85025; 85378; 86803; 87389; 93005; 93270; 99285

== ENCOUNTER 2025-01-04 08:00 | Outpatient (RCR) | payer OTHER, SELFPAY | END 2025-01-04 23:59 | disposition home or self-care (01) | LOC: PT 08:00 | PROVIDERS: Visit Provider Physician Assistant | DX: I89.0 Lymphedema, not elsewhere classified (principal) | CPT/HCPCS: 97140 ==

== ENCOUNTER 2025-01-08 09:41 | Day surgery (SDC) | payer OTHER, SELFPAY ==
[2025-01-08 10:47] VITALS: BMI 32.2
[2025-01-08 10:48] VITALS: BP 118/91; PULSE 83; RESP 18; TEMP 36.4; O2SAT 100
--- NOTE | 2025-01-08 11:00 | CA_ITS ---
APPROVED REPORT EXAM: Comprehensive 2D, Doppler, and color-flow Echocardiogram Machine Repairer: Yamini Lucas RVT Ht: 5 ft 7 in Wt: 203lbs BSA: 2.04 BP: 136/83 mmHg Indications: A-FIB WITH CARDIOVERSION Procedure After obtaining informed consent, patient underwent transesophageal echo in the [facility] Surgery [facility]. Type of Sedation : MAC Sedation start time: 14:15 Case end Time: 14:25 Transesophageal probe was inserted and advanced into esophagus without difficulty by Dr. Oz Gardner. The LORRIE was performed without complications. Synchronized Cardioversion acheived with 150 Joules after 1 attempt(s). Rhythm following Synchronized Cardioversion: Normal Sinus Rhythm Throughout the procedure, the blood pressure, pulse oximetry, cardiac rhythm, and rate were monitored. The patient tolerated the procedure without adverse effects. Recovery from conscious sedation was uneventful and vital signs were stable. Left Ventricle The left ventricle is normal size. The left ventricular systolic function is low normal. There is normal left ventricular wall thickness. There is borderline global hypokinesis present. LVEF is 50%. Right Ventricle The right ventricle is normal size. The right ventricular systolic function is normal. Atria The left atrium size is normal. No thrombus is visualized in the left atrium or appendage. The right atrium size is normal. The interatrial septum is intact with no evidence for an atrial septal defect. Aortic Valve The aortic valve opens well. The aortic valve is trileaflet. There is no aortic valvular stenosis. Trace aortic regurgitation. Mitral Valve Mild bileaflet mitral valve prolapse is present. No evidence of mitral valve stenosis. Trace mitral regurgitation. Tricuspid Valve Tricuspid valve is grossly normal in structure and function. Trace tricuspid regurgitation. There is insufficient TR jet to estimate RVSP. Pulmonic Valve The pulmonary valve is normal in structure. Trace pulmonic regurgitation. Great Vessels The aortic root is normal in size. The ascending aorta is normal in size. Pericardium There is no pericardial effusion. Other Information Study Quality: Fair Conclusion Low normal LV systolic function (LVEF 50%). Mild bileaflet MV prolapse. No significant valvular stenosis or regurgitation. No evidence of LA or MARK thrombus. Once LORRIE demonstrated no evidence of thrombus, the patient underwent DCCV successfully with 150 J, after which her rhythm converted to normal sinus rhythm. Post procedurally, she continued to be asymptomatic and stable. She was eventually discharged in stable condition. Electronically signed by : Alcira Gardner MD 01/09/2025 23:56:41
[2025-01-08] MEDS: LACTATED RINGERS 1000ML 1,000 ML 50 ML IV (11:02)
[2025-01-08 11:07] LABS: Hematocrit 39.5 % (37.0-47.0); Hemoglobin 13.1 g/dL (12.2-16.2); Immature Granulocytes % 0.3 %; Mean Corpuscular HGB Conc 33.2 g/dL (31.8-35.4); Mean Corpuscular Hemoglobin 29.8 pg (27.0-31.2); Mean Corpuscular Volume 89.8 fl (81-99); Nucleated Red Blood Cells % 0 %; Platelet Count 380 K/mm3 (142-424); Red Blood Count 4.40 M/mm3 (4.20-5.40); Red Cell Distribution Width-SD 43.8 fL; White Blood Count 7.7 K/mm3 (4.8-10.8)
[2025-01-08 11:14] LABS: INR 1.02 (0.9-1.1); Prothrombin Time 11.3 seconds (10.1-12.5)
[2025-01-08 11:20] LABS: Anion Gap 14.2 mEq/L (5-15); Blood Urea Nitrogen 11 mg/dl (7-17); Calcium 8.7 mg/dl (8.4-10.2); Carbon Dioxide 26 mmol/L (22.0-30.0); Chloride 102 mmol/L (98-107); Creatinine Clearance Estimated 148 mL/min (50-200); Creatinine,Serum 0.70 mg/dl (0.52-1.04); Estimated Glomerular Filt Rate 90 ml/min (>60); GFR (African American) 109 ML/MIN (>60); Glucose 99 mg/dl (74-100); Potassium 4.2 mmoL/L (3.5-5.1); Sodium 138 mmol/L (136-145)
[2025-01-08 12:10] LABS: HCG Qualitative, Serum Negative (Negative)
--- NOTE | 2025-01-08 12:28 | P.PNANES_ITS ---
[facility] Disclaimer: The information contained in this section may have been updated after the patient was seen, as this information can be updated by other users. 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 Symptomatic PVCs PAF (paroxysmal atrial fibrillation) GERD (gastroesophageal reflux disease) Anxiety Atrial fibrillation Dyspnea Chest pain Surgical History S/P ablation of atrial fibrillation Family History Other No significant family history Social History Smoking Status: Former smoker tobacco type: cigarettes packs per day: 1 second hand exposure: No alcohol intake: never substance use type: marijuana current occupational status: employed Travel in the last 8 weeks?: Inside the [facility] ([place]) household members: spouse and children caffeine: Yes Have you lived/traveled outside US in past 30 days?: No Contact w/someone who lives/traveled outside US past 30 days?: No Exposure to someone with infectious disease in past 14 days?: No Do you have a fever (greater than 100.4 F or 38 C)?: No Have you tested positive for COVID-19?: No Exposed to someone with COVID-19 in past 14 days?: No Do you have a sore throat?: No Do you have a cough?: No Do you have any weakness?: No Do you have any diarrhea?: No Are you experiencing any unusual bleeding?: No Do you have any muscle aches/pain?: No Do you have any abdominal pain?: No Are you experiencing loss of taste or smell?: No [facility] Anesthesia Checklist Patient Identification Patient Identification: Arm Band and Verbal (Name & ) Structural Data Admitted From: Home Planned Operative Procedure/s: LORRIE Cradioversion Consent for Planned Operative Procedure(s) Verified: Yes Verified Documents: Surgical Consent and History and Physical NPO Status Verified Time NPO: 07:30 (coffee and creamer) Additional verifications Anesthesia Reactions: No Hx Blood Transfusions: No Blood Transfusion Reaction: No Airway Assessment Mallampati Score:: Class II Neurological Assessment Level of Consciousness: Awake, Alert and Appropriate Hx Seizures: No Anesthesia Plan Anesthesia Risk discussed: Yes Anesthesia Plan: Verified ASA Class: II Anesthesia Type: MAC
--- NOTE | 2025-01-08 14:11 | SUR.OPER ---
Pt cardioverted at 150j per Dr Gardner. Pt cardioverted to Sinus Rhythm
--- NOTE | 2025-01-08 14:18 | ECG_ITS ---
APPROVED REPORT Exam: Resting ECG HR:62 bpm ECG Measurements Heart Rate 62 AXES OK 137 P 60 QRSd 96 QRS 7 QT 433 T 40 QTc 438 Conclusion SINUS RHYTHM LOW QRS VOLTAGE IN PRECORDIAL LEADS [QRS DEFLECTION < 1.0 mV IN CHEST LEADS] BORDERLINE ECG UNCONFIRMED REPORT Electronically signed by : Aden Goetz MD 01/10/2025 08:25:22
[2025-01-08 14:20] VITALS: BP 93/57; PULSE 64; RESP 20; TEMP 36.7; O2SAT 94
[2025-01-08 14:35] VITALS: BP 111/53; PULSE 62; RESP 20; O2SAT 94
[2025-01-08 14:50] VITALS: BP 104/80; PULSE 60; RESP 20; O2SAT 96
[2025-01-08 15:05] VITALS: BP 95/67; PULSE 61; RESP 20; O2SAT 96
[2025-01-08 15:20] VITALS: BP 103/71; PULSE 64; RESP 20; TEMP 36.7; O2SAT 97
== END 2025-01-08 14:21 | disposition home or self-care (01) ==
PROVIDERS: Visit Provider Internal Medicine
PROC: (CPT 93312; principal; 2025-01-08 11:00)
DX: I48.0 Paroxysmal atrial fibrillation (principal); I34.1 Nonrheumatic mitral (valve) prolapse; I49.3 Ventricular premature depolarization; K21.9 Gastro-esophageal reflux disease without esophagitis; F41.9 Anxiety disorder, unspecified; G47.33 Obstructive sleep apnea (adult) (pediatric); I89.0 Lymphedema, not elsewhere classified; R20.0 Anesthesia of skin; I10 Essential (primary) hypertension; E66.3 Overweight; Z79.01 Long term (current) use of anticoagulants; Z79.899 Other long term (current) drug therapy; Z87.891 Personal history of nicotine dependence; Z68.32 Body mass index [BMI] 32.0-32.9, adult
CPT/HCPCS: 80048; 84703; 85025; 85610; 92960; 93005; 93270; 93312; 93319; J2003; J2704; J7120

== ENCOUNTER 2025-05-29 10:47 | Emergency (ER) | payer OTHER, SELFPAY ==
--- OUTSIDE RECORDS SUMMARY | 2025-04-05 13:30 | XMS_ITS | Encounter Summary ---
Author Organization [place] [address] Care Team Providers Care French Teacher Name Role Phone Aden Pugh Primary Care Provider [phone] Clint Markham MD Unavailable [phone] Reason for Visit * Reason Comments Follow-up f/u s/p EPS, PAF abl ation 02/15/25 (TC). Meds reported per pt. 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 JAQUELIN Rizvi with [facility] for AF, eval for ablation (appears ILR in place but would be EOL)-records on 's desk Procedures NEW PATIENT Aden Pugh [address] [place] [address] Phone: tel:[phone] fax:[phone] Clint Markham MD [address] [place] [address] Phone: tel:[phone] fax:[phone] Referral ID Status Reason Start Date Expiration Date Visits Requested Visits Authorized [id number] Authorization Not Needed 01/24/2025 01/24/2026 99 99 Encounter Details Date Type Department Care Team (Late st Contact Info) Description 04/05/2025 2:30 PM EDT Office Visit [facility] [address] [facility] [address] [place] [address] Judy Klein APRN [address] [place] [address] Paroxysmal atrial fibrillation (HCC) (Primary Dx); Hypertension, unspecified type; History of cardiac ablation for atrial fibrillation (HCC); half-way current use of amiodarone; Healthcare maintenance Social History Tobacco Use Types Packs/Day Years Used Date Smoking Tobacco: Every Day Cigarettes 1 30.8 Started: 07/29/1994 Smokeless Tobacco: Never Tobacco Cessation:Ready to Q uit: Not Asked; Counseling Given: Not Answered Alcohol Use Standard Drinks/Week Comments No 0 (1 standard drink = 0.6 oz pur e alcohol) Sexually Active Control Partners Comments Not Currently Comments No Sex and Gender Information Value Date Recorded Sex Assigned at Not on file Legal Sex Female 7:10 AM EDT Gender Identity Not on file Sexual Orientation Not on file documented as of this encounter Last Filed Vital Signs Vital Sign Reading Time Taken Comments Blood Pressure 134/76 04/05/2025 2:13 PM EDT Pulse 56 04/05/2025 2:13 PM EDT Temperature - - Respiratory Rate - - Oxygen Saturation 96% 04/05/2025 2:13 PM EDT Inhaled Oxygen Concentration - - Weight 96.2 kg (212 lb) 04/05/2025 2:13 PM EDT Height - - Body Mass Index 34.22 02/15/2025 7:32 AM EDT documented in this encounter Functional Status * Is the person deaf or does he/she have serious difficulty hearing? Answer Date of Assessment Author No 01/23/2016 9:29 AM EDT Rogers Kirkland RN * Is the person blind or does he/she have serious difficulty seeing even when wearing glasses? Answer Date of Assessment Author No 01/23/2016 9:29 AM Rogers Rosa RN * Does this person have serious difficulty walking or climbing stairs? Answer Date of Assessment Author No 01/23/2016 9:29 AM Rogers Rosa RN * Does this person have difficulty dressing or bathing? Answer Date of Assessment Author No 01/23/2016 9:29 AM Rogers Rosa RN * Because of a physical, mental or emotional condition, does this person have difficulty doing errands alone such as visiting a doctor's office or shopping? Answer Date of Assessment Author No 01/23/2016 9:29 AM Rogers Rosa RN documented as of this encounter Mental Status * Because of a physical, mental or emotional condition, does this person have serious difficulty concentrating, remembering or making decisions? Answer Entry Date Author No 01/23/2016 9:29 AM Rogers Rosa RN documented in this encounter Progress Notes * Judy Klein, DESIGN TEACHER - 04/05/2025 2:30 PM EDT Cardiac Electrophysiology Progress Note Patient ID: Ghazala Richards is a 44 y.o. female. Chief Complaint Patient presents with Follow-up f/u s/p EPS, PAF ablation 02/15/25 (TC). Meds reported per pt. Ghazala Richards 44 y.o. female who presents today for a follow-up s/p AF ablation. No CP, pressure palpitations, fluttering couple times a week and can occur at anytime > will her tremors (thinks maybe anxiety, but did not have before), headache, fatigue, weakness,dizziness and feel like she may pass out, it has occurred 2x since ablation. No syncope No orthopnea, PND Edema has improved some. No shortness of breath. No signs of bleeding Patient's TSH was elevated at time of procedure (hypothyroidism), however, we do not have FT4. She has had sig weight gain recently as well. Patient is still taking 400 mg of Amio daily. Chief Complaint Patient presents with Follow-up f/u s/p EPS, PAF ablation 02/15/25 (TC). Meds reported per pt. Follow-up Chronicity: AF. Associated symptoms include headaches and weakness. Pertinent negatives include no arthralgias, chest pain, coughing, diaphoresis, fatigue, myalgias, rash, urinary symptoms or vertigo. Their chronic cardiac conditions are: Problem List Cardiology Problems Atrial fibrillation (HCC) Hypertensive disorder Palpitations Tobacco Use History[1] Current Medications[2] Patients past medical, family and social histories were reviewed and updated. There were no changesexcept as noted Review of Systems Constitutional: Positive for malaise/fatigue. Negative for diaphoresis, fatigue, weight gain and weight loss. HENT: Negative for nosebleeds. Cardiovascular: Positive for leg swelling (improved since ablation), near- syncope and palpitations (Patient states she has been having flutters). Negative for chest pain, dyspnea on exertion and syncope. Respiratory: Negative for cough and shortness of breath. Skin: Negative for flushing and rash. Musculoskeletal: Negative for arthralgias, falls and myalgias. Gastrointestinal: Negative for heartburn and melena. Neurological: Positive for dizziness, headaches and weakness. Negative for vertigo. Psychiatric/Behavioral: Negative for depression. The patient does not have insomnia. Allergic/Immunologic: Negative for hives and persistent infections. Objective: Patient Vitals for the past 24 hrs: Pulse BP 04/05/25 1413 56 134/76 Body mass index is 34.22 kg/m??. General: No apparent distress. Alert and oriented. Neck:Trachea is midline. Neck veins are flat. Respiratory: Clear to auscultation bilaterally Cardiovascular: Rhythm is regular. S1 and S2 normal. Abdomen: Abdomen is soft and non tender. Extremeties: No Edema. Clubbing is absent. Cyanosis is absent. Skin: Warm and dry. Neurological: Cranial nerves are grossly intact. Speech is normal. [id number] Stroke Risk Points: 2 Values used to calculate this score: Points Metrics 0 Has Congestive Heart Failure: No 1 Has Hypertension: Yes 0 Age: 44 0 Has Diabetes: No 0 Had Stroke: No Had TIA: No Had Thromboembolism: No 0 Has Vascular Disease: No 1 Clinically Relevant Sex: Female Assessment and Plan: PAF - PVAI ablation 01/22/16 - DCCV/LORRIE 01/08/25 > NSR - PVAI -- PFA ablation 02/15/25 - Amio 400 QID 01/08/25 (by hospital) > 400 mg Daily 02/02/25 > TSH 7.770 (02/15/25); repeat TSH/FT4 ordered 04/05/25 > AST/ALT ordered 04/05/25 > CXR 01/03/19 No ILD - Eliquis - Lopressor HTN - Lopressor PAF patient still having episodes > in blanking period (explained to patient). EKG today showed NSR. She is still taking Amio > previous TSH elevated therefore I am rechecking TSH and FT4 before adjusting Amio dosing. She will also get a CMP today to assess LFTs for her Amio therapy. She is to continue her Lopressor. She will continue her Eliquis (HGB 13.0/HCT 39.6/PLT 281). She will f/u atend of Nov, if not further events goal will be to D/C Johnson. If she is still having episodes at the 3 mos period then we will wear an EM. Judy Klein APRN Cardiac Electrophysiology [1] Social History Tobacco Use Smoking Status Every Day Current packs/day: 1.00 Average packs/day: 1 pack/day for 30.7 years (30.7 ttl pk-yrs) Types: Cigarettes Start date: 07/29/1994 Smokeless Tobacco Never [2] Current Outpatient Medications Medication Sig Dispense Refill amiodarone (PACERONE) 200 mg Oral Tablet Take 2 Tablets by mouth daily. 30 Tablet 0 ELIQUIS 5 mg Oral Tablet Take 5 mg by mouth 2 times daily. metoprolol (LOPRESSOR) 50 mg Oral Tablet Take 50 mg by mouth 2 times daily. No current facility-administered medications for this visit. documented in this encounter Miscellaneous Notes * Patient Instructions - Isha Melendez MA - 04/05/2025 2:30 PM EDT Please contact your primary care physician to discuss your need for a pneumo vaccine and to discussoptions for smoking cessation You may be contacted by mail or e-mail to participate in a patient satisfaction survey regarding your office visit today. We value your opinion and depend on your feedback to make improvements and provide you with the best possible experience while receiving high quality medical treatment. Your time in completing this survey is greatly appreciated. . documented in this encounter Plan of Treatment Upcoming Encounters Date Type Department Care Team (Late st Contact Info) Description 06/15/2025 3:00 PM EST Office Visit [facility] [address] [facility] [address] [place] [address] Judy Klein APRN [address] [place] [address] Pending Results Name Type Priority Associated Diagnoses Date /Time POCT EKG Point of Care Testing Routine Paroxysmal atrial fibrillation (HCC) 04/05/2025 2:08 PM EDT documented as of this encounter Procedures Procedure Name Priority Date/Time Associated Diagnosis Comments POCT EKG Routine 04/05/2025 2:08 PM EDT Paroxysmal atrial fibrillation (HCC) documented in this encounter Results * (ABNORMAL) COMPREHENSIVE METABOLIC PANEL (04/05/2025 2:53 PM EDT) Sodium 140 136 - 145 mmol/L 04/05/2025 4:43 PM EDT [facility] Potassium 3.8 3.5 - 5.0 mmol/L 04/05/2025 4:43 PM EDT [facility] Chloride 106 98 - 107 mmol/L 04/05/2025 4:43 PM EDT [facility] Total CO2 21(L) 22 - 29 mmol/L 04/05/2025 4:43 PM EDT [facility] Anion Gap 13 7 - 16 mmol/L 04/05/2025 4:43 PM EDT [facility] Calcium 8.8 8.6 - 10.4 mg/dL 04/05/2025 4:43 PM EDT [facility] Glucose Lvl 70 70 - 99 mg/dL 04/05/2025 4:43 PM EDT [facility] BUN 16 6 - 20 mg/dL 04/05/2025 4:43 PM EDT [facility] Creatinine 0.74 0.51 - 1.30 mg/dL 04/05/2025 4:43 PM EDT [facility] Albumin 3.8 3.5 - 5.2 gm/dL 04/05/2025 4:43 PM EDT [facility] Total Protein 7.0 6.4 - 8.3 gm/dL 04/05/2025 4:43 PM EDT [facility] Bili Total 0.2 0.2 - 1.3 mg/dL 04/05/2025 4:43 PM EDT [facility] ALT 17 <=41 U/L 04/05/2025 4:43 PM EDT [facility] AST 19 <=40 U/L 04/05/2025 4:43 PM EDT [facility] Alk Phos 61 36 - 123 U/L 04/05/2025 4:43 PM EDT [facility] eGFR (CKD-EPIcr 2020) 100 >=60 mL/min/1.7 3 m2 04/05/2025 4:43 PM EDT [facility] Comment:Estimated GFR was ca lculated using the CKD-EPIcr (2020) equation refit without race. The equation is recommended by the National Kidney Foundation - [place] [employer] of Nephrology Task Force. Blood VENOUS BLOOD / Unknown Venipuncture / Unknown 04/05/2025 2:53 PM EDT 04/05/2025 2:53 PM EDT Judy Klein DESIGN TEACHER CHEMISTRY ORDERABLES Final Re sult Performing Organization Address [facility] de Phone Number [address] , [place] [address] * T4, FREE (THYROXINE) (04/05/2025 2:53 PM EDT) Free T4 1.06 0.80 - 1.80 ng/dL 04/05/2025 4:43 PM EDT [facility] Blood VENOUS BLOOD / Unknown Venipuncture / Unknown 04/05/2025 2:53 PM EDT 04/05/2025 2:53 PM EDT Narrative [facility] - 04/05/2025 4:43 PM EDT Ingestion of vicky doses of biotin (>5 mg/day) taken within 8 hours of drawing blood sample can interfere with this immunoassay test. Judy Latoya COTON CHEMISTRY ORDERABLES Final Re sult Performing Organization Address [facility] Co de Phone Number [address] , [place] [address] * (ABNORMAL) TSH REFLEX TO FT4 (04/05/2025 2:53 PM EDT) TSH Reflex 5.690(H) 0.270 - 4.200 mcIU/mL 04/05/2025 4:43 PM EDT [facility] Blood VENOUS BLOOD / Unknown Venipuncture / Unknown 04/05/2025 2:53 PM EDT 04/05/2025 2:53 PM EDT Narrative [facility] - 04/05/2025 4:43 PM EDT Ingestion of vicky doses of biotin (>5 mg/day) taken within 8 hours of drawing blood sample can interfere with this immunoassay test. us Judy Klein DESIGN TEACHER CHEMISTRY ORDERABLES Final Re sult [facility] [address] [facility] , [place] [address] documented in this encounter Visit Diagnoses Diagnosis Paroxysmal atrial fibrillation (HCC)- Primary Atrial fibrillation Hypertension, unspecified type History of cardiac ablation for atrial fibrillation (HCC) half-way current use of amiodarone Healthcare maintenance Routine general medical examination at a health care facility documented in this encounter Care Teams French Teacher Relationship Specialty Start Date End Date Aden Pugh [address] [place] [id number] PCP - General Family Medicine 06/18/16 Clint Markham MD [address] [facility] [place] [address] Consulting Physician Internal Medicine - Clinical Cardiac Electrophysiology 06/19/16 documented as of this encounter
--- OUTSIDE RECORDS SUMMARY | 2025-04-05 13:50 | XMS_ITS | Encounter Summary ---
Author Organization [facility] Address [facility] [place] [address] Care Team Providers Care Extended Insurance Clerk Name Role Phone Aden Pughw Primary Care Provider [phone] Clint Markham MD Unavailable Encounter Details Date Type Department Care Team (Latest Contact Info) Description 04/05/2025 2:50 PM EDT - 04/05/2025 11:59 PM EDT Hospital Encounter [facility] [place] [address] emergency medicine current use of amiodarone; Healthcare maintenance Discharge Disposition: Home or Self Care Social History Tobacco Use Types Packs/Day Years Used Date Smoking Tobacco: Every Day Cigarettes 1 30.8 Started: 07/29/1994 Smokeless Tobacco: Never Alcohol Use Standard Drinks/Week Comments No 0 (1 standard drink = 0.6 oz pur e alcohol) Sexually Active Control Partners Comments Not Currently Comments No Sex and Gender Information Value Date Recorded Sex Assigned at Not on file Legal Sex Female 7:10 AM EDT Gender Identity Not on file Sexual Orientation Not on file documented as of this encounter Functional Status * Is the person deaf or does he/she have serious difficulty hearing? Answer Date of Assessment Author No 01/23/2016 9:29 AM Rogers Rosa RN * Is the person blind or [...] of Assessment Author No 01/23/2016 9:29 AM EDRogers Lambert RN * Because of a physical, mental [...] Rogers Rosa RN documented in this encounter Medications at Time of Discharge ELIQUIS 5 mg Oral Tablet Take 5 mg by mouth 2 times daily. 01/01/2025 metoprolol (LOPRESSOR) 50 mg Oral Tablet Take 50 mg by mouth 2 times daily. 01/04/2025 amiodarone (PACERONE) 200 mg Oral Tablet Take 2 Tablets by mouth daily. 30 Tablet 02/15/2025 04/30/2025 documented as of this encounter Discharge Disposition Disposition Code Departure Means Destination Home or Self Care documented in this encounter Plan of Treatment Upcoming Encounters Date Type Department Care Team (Late st Contact Info) Description 06/15/2025 3:00 PM EST Office Visit [facility] [address] [facility] [address] [place] [address] Judy Klein, INGOT SUPERVISOR [address] [place] [address] documented as of this encounter Procedures Procedure Name Priority Date/Time Associated Diagnosis Comments TSH REFLEX TO FT4 Routine 04/05/2025 2:5 3 PM EDT emergency medicine current use of amiodarone Healthcare maintenance T4, FREE (THYROXINE) Routine 04/05/2025 2:53 PM EDT shelter current use of amiodarone Healthcare maintenance COMPREHENSIVE METABOLIC PANEL Routine 04/05/2025 2:53 PM EDT shelter current use of amiodarone Healthcare maintenance documented in this encounter Results * (ABNORMAL) [...] - 123 U/L 04/05/2025 4:43 PM EDT [facility] eGFR (CKD-EPIcr 2020) 100 >=60 mL/min/1.7 3 m2 04/05/2025 4:43 PM EDT [facility] Comment:Estimated GFR was ca lculated using the CKD-EPIcr (2020) equation refit without race. The equation is recommended by the National Kidney Foundation - [place] [employer] of Nephrology Task Force. Blood VENOUS BLOOD / Unknown Venipuncture / Unknown 04/05/2025 2:53 PM EDT 04/05/2025 2:53 PM EDT [facility] CHEMISTRY ORDERABLES Final Re sult Performing Organization Address [facility] de Phone Number [facility] [address] [facility] , [place] [address] * T4, FREE (THYROXINE) (04/05/2025 2:53 PM EDT) Free T4 1.06 0.80 - 1.80 ng/dL 04/05/2025 4:43 PM EDT [facility] Blood VENOUS BLOOD / Unknown Venipuncture / Unknown 04/05/2025 2:53 PM EDT 04/05/2025 2:53 PM EDT Narrative [facility] - 04/05/2025 4:43 PM EDT Ingestion of vicky doses of biotin (>5 mg/day) taken within 8 hours of drawing blood sample can interfere with this immunoassay test. [employer] INGOT SUPERVISOR CHEMISTRY ORDERABLES Final Re sult Performing Organization Address [facility] Phone Number [facility] [address] [facility] , [place] [address] * (ABNORMAL) TSH REFLEX TO FT4 (04/05/2025 2:53 PM EDT) TSH Reflex 5.690(H) 0.270 - 4.200 mcIU/mL 04/05/2025 4:43 PM EDT [facility] Blood VENOUS BLOOD / Unknown Venipuncture / Unknown 04/05/2025 2:53 PM EDT 04/05/2025 2:53 PM EDT Narrative [facility] - 04/05/2025 4:43 PM EDT Ingestion of vicky doses of biotin (>5 mg/day) taken within 8 hours of drawing blood sample can interfere with this immunoassay test. us Judy Klein INGOT SUPERVISOR CHEMISTRY ORDERABLES Final Re sult [facility] [address] [facility] [place] [address] [place] [address] documented in this encounter Visit Diagnoses Diagnosis shelter current use of amiodarone Healthcare maintenance Routine general medical examination at a health care facility documented in this encounter Care Teams Extended Insurance Clerk Relationship Specialty Start Date End Date Aden Pugh [address] [place] [address] PCP - General Family Medicine 06/18/16 Clint Markham MD [address] [facility] [place] [address] Consulting Physician Internal Medicine - Clinical Cardiac Electrophysiology 06/19/16 documented as of this encounter
[2025-05-29 10:55] VITALS: BP 155/83; PULSE 73; RESP 14; TEMP 36.8; O2SAT 99; BMI 31.3
--- OUTSIDE RECORDS SUMMARY | 2025-05-29 11:04 | XMS_ITS | Clinical Summary ---
Author Organization [facility] Address [address] [place] [address] Phone Care Team Providers Care Machine Packager Name Role Phone Aden Pugh Primary Care Provider [phone] Clint Markham MD Unavailable [phone] Allergies No known active allergies Medications ELIQUIS 5 mg Oral Tablet Take 5 mg by mouth 2 times daily. 5 Active metoprolol (LOPRESSOR) 50 mg Oral Tablet Take 50 mg by mouth 2 times daily. 5 Active amiodarone (PACERONE) 200 mg Oral Tablet Take 2 tablets by mouth once daily 30 Tablet 5 Active amiodarone (PACERONE) 200 mg Oral Tablet Take 2 Tablets by mouth daily. 30 Tablet 5 04/30/20 25 Discontinued Active Problems Problem Noted Date Diagnosed Date Abscess 04/05/2025 Anxiety 04/05/2025 Chest discomfort 04/05/2025 Chest pain 04/05/2025 DVT (deep venous thrombosis) 04/05/2025 Dyspnea 04/05/2025 Edema 04/05/2025 Edema of both lower extremities 04/05/2025 Finger fracture 04/05/2025 GERD (gastroesophageal reflux disease) Implantable loop recorder present 04/05/2025 Left arm numbness 04/05/2025 Left shoulder strain 04/05/2025 Lymphedema 04/05/2025 Mitral valve prolapse 04/05/2025 Obstructive sleep apnea syndrome 04/05/2025 Pain in joint 04/05/2025 Pain, dental 04/05/2025 Periapical abscess 04/05/2025 Protein in urine 04/05/2025 Strep sore throat 04/05/2025 UTI (urinary tract infection) 04/05/2025 Tobacco abuse Hypertensive disorder Atrial fibrillation Overview (02/26/2016): S/p EPS, 3D Mapping & AF Ablation on 01/22/[address] Markham Syncope Overview (12/25/2015): SCAR Soto ILR 07/24/2015-Dr. Oakley Palpitations FAITH (generalized anxiety disorder) Resolved Problems Problem Noted Date Diagnosed Date Resolved Date Symptomatic PVCs 04/05/2025 04/05/2025 Atrial fibrillation with RVR 04/05/2025 05/18/2025 Generalized anxiety disorder 12/25/2015 Depressive disorder, not elsewhere classified 12/25/2015 Anorexia 12/25/2015 Encounters Date Type Department Care Team Description 04/30/2025 Refill [facility] [address] [facility] [address] [place] [address] Clint Markham MD Medication Refill 04/06/2025 Results Follow-Up [facility] [address] [facility] [address] [place] [address] Judy Klein APRN TSH REFLEX TO FT4, T4, FREE (THYROXINE), COMPREHENSIVE METABOLIC PANEL 04/05/2025 2:50 PM EDT - 04/05/2025 11:59 PM EDT Hospital Encounter [facility] [address] [place] [id number] long-term current use of amiodarone; Healthcare maintenance Discharge Disposition: Home or Self Care 04/05/2025 2:30 PM EDT Office Visit [facility] [address] [facility] [address] [place] [address] Judy Klein APRN Paroxysmal atrial fibrillation (HCC) (Primary Dx); Hypertension, unspecified type; History of cardiac ablation for atrial fibrillation (HCC); long-term current use of amiodarone; Healthcare maintenance from Last 3 Months Surgical History Surgery Date Site/Laterality Comments TUBAL LIGATION 07/05/2003 - 07/04/2004 OTHER SURGICAL HISTORY 07/24/2015 MDT [facility]OSS-Dr. Oakley CHOLECYSTECTOMY KNEE SURGERY Left ACL Repair TYMPANOSTOMY TUBE PLACEMENT ABLATION OF DYSRHYTHMIC FOCUS 01/22/2016 EPS, 3D Mapping & AFib Ablation - Dr. Markham 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 Date Comments Generalized anxiety disorder Depressive disorder, not elsewhere classified Anorexia Tobacco abuse Hypertensive disorder Palpitations Syncope PAF (paroxysmal atrial fibrillation) (HCC) GERD (gastroesophageal reflux disease) 04/05/2025 Family History 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 Relation Name Comments Heart Failure Father NC x5 Heart Failure Maternal Grandmother Heart Failure Other Paternal Uncle , Maternal Aunts Heart Failure Paternal Grandmother Relation Name Status Comments Father Alive Maternal Grandmother Mother Other Paternal Grandmother Social History Tobacco Use Types Packs/Day Years [...] on file Sexual Orientation Not on file Last Filed Vital Signs Vital Sign Reading Time Taken Comments Blood Pressure 134/76 04/05/2025 2:13 PM EDT Pulse 56 04/05/2025 2:13 PM EDT Temperature 36.4 C (97.5 F) 02/15/2025 11:45 AM EDT Respiratory Rate 14 02/15/2025 2:00 PM EDT Oxygen Saturation 96% 04/05/2025 2:13 PM EDT Inhaled Oxygen Concentration - - Weight 96.2 kg (212 lb) 04/05/2025 2:13 PM EDT Height 167.6 cm (5' 6 ) 02/15/2025 7:32 AM EDT Body Mass Index 34.22 02/15/2025 7:32 AM EDT Plan of Treatment Upcoming Encounters Date Type Department Care Team (Late st Contact Info) Description 06/15/2025 3:00 PM EST Office Visit [facility] [address] [facility] [address] [place] [address] Judy Klein, HEATH [address] [place] [address] Health Maintenance Due Date Last Done Comments DTaP/TDaP/Td (1 - Tdap) 1997 Hepatitis B Vaccine (1 of 3 - 19+ 3-dose series) 1997 Pneumococcal Vaccine 0-49 (1 of 2 - PCV) 1997 HPV/Pap Cotest 2008 Annual Wellness Exam 01/01/2017 01/02/2016 (Postponed) Breast Cancer Screening 2018 Cervical Cancer Screening 01/01/2019 Pap Smear 01/01/2019 01/02/2016 (Postponed) Cologuard 11/30/2023 Colon Cancer Screening 11/30/2023 Colonoscopy 11/30/2023 FIT 11/30/2023 Sigmoidoscopy 11/30/2023 Virtual Colonography 11/30/2023 COVID-19 Vaccine (1 - 2024-2 6 season) 2025 Influenza Vaccine (#1) 2025 Meningococcal B Vaccine Aged Out No l onger eligible based on patient's age to complete this topic Medical Devices Implanted Type Area Oracle Bpm Consultant Device Identifier Shelf Expiration Date Model / Serial / Lot Medtronic Linq Ilr Implanted:Qty: 1 on 07/24/2015 by Lopez Oakley MD [employer] [id number] / [id number] / Procedures Procedure Name Priority Date/Time Associated Diagnosis Comments COMPREHENSIVE METABOLIC PANEL Routine 04/05/2025 2:53 PM EDT long-term current use of amiodarone Healthcare maintenance T4, FREE (THYROXINE) Routine 04/05/2025 2:53 PM EDT long-term current use of amiodarone Healthcare maintenance TSH REFLEX TO FT4 Routine 04/05/2025 2:5 3 PM EDT long-term current use of amiodarone Healthcare maintenance POCT EKG Routine 04/05/2025 2:08 PM EDT Paroxysmal atrial fibrillation (HCC) from Last 3 Months Results * (ABNORMAL) TSH REFLEX TO FT4 (04/05/2025 2:53 PM EDT) TSH Reflex 5.690(H) 0.270 - 4.200 mcIU/mL 04/05/2025 4:43 PM EDT PREFERRED [facility] Blood VENOUS BLOOD / Unknown Venipuncture / Unknown 04/05/2025 2:53 PM EDT 04/05/2025 2:53 PM EDT Narrative [facility] - 04/05/2025 4:43 PM EDT Ingestion of vicky doses of biotin (>5 mg/day) taken within 8 hours of drawing blood sample can interfere with this immunoassay test. Life[employer] CHEMISTRY ORDERABLES Final Re sult Performing Organization Address City/[facility]/ZIP Co de Phone Number [facility] Violin Memory [facility] [address] [facility] , [place] [address] * T4, FREE (THYROXINE) (04/05/2025 2:53 PM EDT) Pathologist [facility] Free T4 1.06 0.80 - 1.80 ng/dL 04/05/2025 4:43 PM EDT [facility] Blood VENOUS BLOOD / Unknown Venipuncture / Unknown 04/05/2025 2:53 PM EDT 04/05/2025 2:53 PM EDT Narrative [employer] - 04/05/2025 4:43 PM EDT Ingestion of vicky doses of biotin (>5 mg/day) taken within 8 hours of drawing blood sample can interfere with this immunoassay test. Life[employer] CHEMISTRY ORDERABLES Final Re sult Performing Organization Address City/[facility]/ZIP Co de Phone Number [facility] Memory [facility] [address] [facility] , [place] [address] * (ABNORMAL) COMPREHENSIVE METABOLIC PANEL (04/05/2025 2:53 PM EDT) Pathologist [facility] Sodium 140 136 - 145 mmol/L 04/05/2025 4:43 PM EDT [facility] Potassium 3.8 3.5 - 5.0 mmol/L 04/05/2025 [...] recommended by the National Kidney Foundation - [place] Society of Nephrology Task Force. Blood VENOUS BLOOD / Unknown Venipuncture / Unknown 04/05/2025 2:53 PM EDT 04/05/2025 2:53 PM EDT us Judy Klein PRODUCTION BORING MACHINE OPERATOR CHEMISTRY ORDERABLES Final Re sult PREFERRED [facility] [place], [facility] [address] [facility] , [address] [place] [id number] from Last 3 Months Insurance [facility] [address] [facility] [address] [address] Advance Directives For more information, please contact: [phone] * Full Code (Latest Code Status on File) Date Activated Date Inactivated Comments 01/23/2016 8:48 AM 01/23/2016 2:35 PM Care Teams Machine Packager Relationship Specialty Start Date End Date Aden Pugh [address] [place] [address] PCP - General Family Medicine 06/18/16 Clint Markham MD [address] [place] [address] [place] [address] Consulting Physician Internal Medicine - Clinical Cardiac Electrophysiology 06/19/16
--- OUTSIDE RECORDS SUMMARY | 2025-05-29 11:04 | XMS_ITS | Encounter Summary ---
Author Organization [place] [address] Care Team Providers Care Power Electronics Research Engineer Name Role Phone Aden Pugh Primary Care Provider [phone] Clint Markham MD Unavailable [phone] Reason for Visit * Reason Comments Medication Refill Encounter Details Date Type Department Care Team (Late st Contact Info) Description 04/30/2025 Refill [facility] [address] [facility] [address] [place] [address] Clint Mrakham MD [address] [place], [place] [id number] Medication Refill Social History Tobacco Use Types Packs/Day Years [...] Rogers Rosa RN documented in this encounter Ordered Prescriptions Prescription Sig Dispense Quantity Refills Last Filled Start Date End Date amiodarone (PACERONE) 200 mg Oral Tablet Take 2 tablets by mouth once daily 30 Tablet 5 04/30/2025 documented in this encounter Plan of Treatment Upcoming Encounters Date Type Department Care Team (Late st Contact Info) Description 06/15/2025 3:00 PM EST Office Visit [facility] [address] [facility] [address] [place] [address] Judy Klein APRN [address] [place] [address] documented as of this encounter Visit Diagnoses Not on filedocumented in this encounter Discontinued Medications Medication Sig Discontinue Reason Start Date End Da te amiodarone (PACERONE) 200 mg Oral Tablet Take 2 Tablets by mouth daily. 02/15/2025 04/30/2025 documented as of this encounter Care Teams Power Electronics Research Engineer Relationship Specialty Start Date End Date Aden Pugh [address] [place] [id number] PCP - General Family Medicine 06/18/16 Clint Markham MD [address] [place] [address] Consulting Physician Internal Medicine - Clinical Cardiac Electrophysiology 06/19/16 documented as of this encounter
--- OUTSIDE RECORDS SUMMARY | 2025-05-29 11:04 | XMS_ITS | Encounter Summary ---
Author Organization [place] [address] Care Team Providers Care Manager Business Systems Name Role Phone Galo Davenport MD Primary Care Provider + [phone] Aden Pugh Primary Care Provider [phone] Clint Markham MD Unavailable [phone] Encounter Details Date Type Department Care Team (Late st Contact Info) Description 01/22/2016 Orders Only [facility] [address] [facility] [address] [place] [address] Clint Markham MD [address] [place], [place] [id number] Social History Tobacco Use Types Packs/Day Years [...] documented as of this encounter Functional Status documented as of this encounter Mental Status * Question Answer Entry Date Author Because of a physical, menta l or emotional condition, does this person have difficulty doing errands alone such as visiting a doctor's office or shopping? No 01/23/2016 9:29 AM Jaspreet Rosa RN Because of a physical, menta l or emotional condition, does this person have serious difficulty concentrating, remembering or making decisions? No 01/23/2016 9:29 AM EDT Isael, Ronal L., RN documented in this encounter Plan of Treatment Upcoming Encounters Date Type Department Care Team (Late st Contact Info) Description 06/15/2025 3:00 PM EST Office Visit [facility] [address] [facility] [address] [place] [address] LatoyaJudy bradleyHEATH [address] [place] [address] documented as of this encounter Procedures Procedure Name Priority Date/Time Associated Diagnosis Comments EP LAB RECORDINGS Routine 01/22/2016 7:10 AM EDT documented in this encounter Results * EP LAB RECORDINGS (01/22/2016 7:10 AM EDT) 01/22/2016 7:10 AM EDT us Clint Markham MD CARDIAC CATH ORDERABLES Final Result [facility] [address] [place] [address] documented in this encounter Visit Diagnoses Not on filedocumented in this encounter Care Teams Manager Business Systems Relationship Specialty Start Date End Date Galo Davenport MD [address] [place] [address] PCP - General Emergency Medicine 01/02/16 06/17/16 Aden Pugh [address] [facility] [address] PCP - General Family Medicine 06/18/16 Clint Markham MD [address] [place], [place] [phone] Consulting Physician Internal Medicine - Clinical Cardiac Electrophysiology 06/19/16 documented as of this encounter
--- OUTSIDE RECORDS SUMMARY | 2025-05-29 11:04 | XMS_ITS | Clinical Summary ---
Author Organization [facility] Address [address] [place] [address] Care Team Providers Care Ase Master Mechanic Name Role Phone Pcp, No Primary Care Provider Unavailabl e Allergies No known active allergies Medications omeprazole (PriLOSEC) [address] capsule Take 40 mg by mouth 1 (one) time each day. 3 Active ondansetron ODT (Zofran-ODT) 4 MG disintegrating tablet DISSOLVE 1 TABLET IN MOUTH EVERY 6 HOURS NEEDED FOR NAUSEA 2 Active oxyCODONE-acetamino phen (Percocet) 5-325 MG tablet TAKE 1 TABLET BY MOUTH EVERY 6 HOURS NEEDED FOR PAIN SCALE 7-10 3 Active zolpidem (Ambien) 5 MG tablet Take 5 mg by mouth. Active methocarbamol (Robaxin) 750 MG tablet Take 750 mg by mouth. 2 Active meclizine (Antivert) 25 MG tablet TAKE 1 TABLET BY MOUTH 4 TIMES DAILY 2 Active ibuprofen 800 MG tablet TAKE 1 TABLET BY MOUTH EVERY 8 HOURS WITH FOOD OR MILK NEEDED 2 Active escitalopram (Lexapro) 10 MG tablet Take 10 mg by mouth 1 (one) time each day. 3 Active diclofenac (Voltaren) 75 MG EC tablet Take 75 mg by mouth. 2 Active cetirizine (ZyrTEC) 10 MG tablet TAKE 1 TABLET BY MOUTH ONCE DAILY NEEDED FOR ALLERGY SYMPTOMS 2 Active apixaban (Eliquis Starter Pack) 5 MG tablet Take as directed 1 each 5 Active metoprolol tartrate (Lopressor) 25 MG tablet Take 2 tablets by mouth 2 times a day. 60 tablet Active Active Problems No known active problems Family History 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 Relation Name Comments Heart attack Father Diabetes Other 1 Heart murmur Other 2 Other cancer Other 3 sudden cardiac (SCD) Other 4 sudden cardiac (SCD) Other 5 Relation Name Status Comments Father Other 1 Other 2 Other 3 Other 4 Other 5 Social History Tobacco Use Types Packs/Day Years Used Date Smoking Tobacco: Every Day Cigarettes Smokeless Tobacco: Never Alcohol Use Standard Drinks/Week Comments Yes 0 (1 standard drink = 0.6 oz pur e alcohol) PHQ-2 Answer Date Recorded Patient Health Questionnaire-2 Score 3 10/20/2022 PHQ-9 Answer Date Recorded Patient Health Questionnaire-9 Score 14 10/20/2022 CAGE ASSESSMENT Answer Date Recorded Cage unable to access Not on file 01/03/2025 Maximum number of drinks you had on a given occasion in the last month? 0 drinks 01/03/2025 How many alcoholic Beverages do you typically drink in a week? 0 - 7 per week 01/03/2025 Have you ever felt you should CUT down on your d rinking? 0 01/03/2025 Have you been ANNOYED by peo ple criticizing your drinking? 0 01/03/2025 Have you felt GUILTY about your drinking? 0 01/03/2025 Have you had a drink first t ricky in the morning (EYE-PHYSICS AND ASTRONOMY PROFESSOR) to steady your nerves or to get rid of a hangover? 0 01/03/2025 CAGE Questionnaire Score 0 025 PHQ-2A Answer Date Recorded Patient Health Questionnaire-2 Score 3 10/20/2022 Comments Unknown Sex and Gender Information Value Date Recorded Sex Assigned at Not on file Legal Sex Female 6:36 PM EDT Gender Identity Not on file Sexual Orientation Not on file Last Filed Vital Signs Vital Sign Reading Time Taken Comments Blood Pressure 113/82 01/03/2025 4:00 PM EDT Pulse 98 01/03/2025 4:00 PM EDT Temperature 37 C (98.6 F) 01/03/2025 4:00 PM EDT Respiratory Rate 21 01/03/2025 4:00 PM EDT Oxygen Saturation 98% 01/03/2025 4:00 PM EDT Inhaled Oxygen Concentration - - Weight 90.7 kg (200 lb) 01/03/2025 9:17 AM EDT Height 170.2 cm (5' 7 ) 01/03/2025 9:17 AM EDT Body Mass Index 31.32 01/03/2025 9:17 AM EDT Plan of Treatment Health Maintenance Due Date Last Done Comments [facility]-/Child/Adol SDOH Screenings 1978 [facility]- SDOH Screenings 1996 [facility]-Adult SDOH Screenings 1996 [facility]-DTaP,Tdap,and Td Vaccine s (1 - Tdap) 1997 [facility]-Hepatitis B Vaccines (1 of 3 - 19+ 3-dose series) 1997 [facility]-Pneumococcal Vaccine: Pediatrics (0 to 5 Years) and At-Risk Patients (6 to 49 Years) (1 of 2 - PCV) 1997 [facility]-Pap Smear 11/30/1999 [facility]-Cervical Cancer Screening 2008 [facility]-HPV/Cotest 2008 [facility]-Depression Screening 10/21/2023 023, 10/20/2022 CT Colonography 11/30/2023 Colonoscopy 11/30/2023 FIT-DNA 11/30/2023 FIT 11/30/2023 FOBT 11/30/2023 Sigmoidoscopy 11/30/2023 [facility]-Colorectal Cancer Screening 11/30/2023 [id number] Vaccine (2 - season) 2025 12/05/2020 [facility]-Influenza Vaccine (#1) 2025 [facility]-Zoster Vaccines (1 of 2) 2028 [facility]-Obesity Intervention Completed 10/20/2022 [facility]-HIV Screening Completed 01/03/2025 [facility]-Hepatitis C Screening Completed 01/03/2025 HPV Vaccines Aged Out No longer eligi ble based on patient's age to complete this topic [facility]-HIB Vaccines Aged Out No longer e ligible based on patient's age to complete this topic [facility]-Hepatitis A Vaccines Aged Out No longer eligible based on patient's age to complete this topic [facility]-IPV Vaccines Aged Out No longer e ligible based on patient's age to complete this topic [facility]-Rotavirus Vaccines Aged Out No lo nger eligible based on patient's age to complete this topic Procedures Procedure Name Priority Date/Time Associated Diagnosis Comments HEPATITIS C ANTIBODY - ED W/REFLEX TO HCV QUANT PCR STAT 01/03/2025 9:55 AM EDT ED HIV 1/2 ANTIBODY/ANTIGEN SCREEN WITH REFLEX TO HIV I/II DIFFERENTIATION STAT 01/03/2025 9:55 AM EDT from Last 3 Months or Most Recently Relevant to Health Maintenance Results * ED HIV 1/2 Antibody/Antigen Screen w/Reflex to HIV 1/2 Differentiation (01/03/2025 9:55 AM EDT) HIV 1 & 2 Antibody/Antigen Screen Non Reactive Non Reactive 01/03/2025 11:01 AM EDT [facility] Comment:Screening for HIV 1 & 2 antibodies, and P24 antigen is NONREACTIVE. No confirmatory testing is required. Blood Venous blood specimen / Unknown Venipuncture / Unknown 01/03/2025 9:55 AM EDT 01/03/2025 10:21 AM EDT us Nicholas Jacinto MD LAB BLOOD ORDERABLES Final Result [facility] [address] [place] [address] * Hepatitis C Antibody - ED (01/03/2025 9:55 AM EDT) Hepatitis C Antibody Negative Negative 01/03/2025 11:01 AM EDT [facility] Blood Venous blood specimen / Unknown Venipuncture / Unknown 01/03/2025 9:55 AM EDT 01/03/2025 10:22 AM EDT Nicholas Jacinto MD LAB BLOOD ORDERABLES Final Result [facility] [address] [place] [address] from Last 3 Months or Most Recently Relevant to Health Maintenance Insurance [employer] [facility] MEDICAID Care Teams Ase Master Mechanic Relationship Specialty Start Date End Date Pcp, [place] [address] PCP - General Family Medicine 01/03/25
--- OUTSIDE RECORDS SUMMARY | 2025-05-29 11:04 | XMS_ITS | Encounter Summary ---
Author Organization [place] [address] Care Team Providers Care Clinical Statistical Programmer Name Role Phone Galo Davenport MD Primary Care Provider + [phone] Aden Pugh Primary Care Provider [phone] Clint Markham MD Unavailable [phone] Encounter Details Date Type Department Care Team (Late st Contact Info) Description 02/28/2016 Orders Only [facility] [address] [facility] [address] [place] [address] Clint Markham MD [address] [place], [place] [phone] Social History Tobacco Use Types Packs/Day Years [...] of Assessment Author No 01/23/2016 9:29 AM MORIAHT Rogers Kirkland RN * Is the person blind or does he/she have serious difficulty seeing even when wearing glasses? Answer Date of Assessment Author No 01/23/2016 9:29 AM MORIAHT Rogers Kirkland RN * Does this person have serious [...] Rogers Rosa RN documented in this encounter Plan of Treatment Upcoming Encounters Date Type Department Care Team (Late st Contact Info) Description 06/15/2025 3:00 PM EST Office Visit [facility] [address] [facility] [address] [place] [address] Judy Klein, HEATH [address] [place] [address] documented as of this encounter Procedures Procedure Name Priority Date/Time Associated Diagnosis Comments PACEART REPORT Routine 02/28/2016 1:32 PM EDT documented in this encounter Results * PACEART REPORT (02/28/2016 1:32 PM EDT) 02/28/2016 1:32 PM EDT us Clint Markham MD [facility] CARDIAC CATH ORDERAB LES Final Result [facility] [address] [place] [address] documented in this encounter Visit Diagnoses Not on filedocumented in this encounter Care Teams Clinical Statistical Programmer Relationship Specialty Start Date End Date Galo Davenport MD [address] [facility] [address] [place] [phone] PCP - General Emergency Medicine 01/02/16 06/17/16 Aden Pugh [address] [place] [address] PCP - General Family Medicine 06/18/16 Clint Markham MD [address] [facility] [place], [place] [phone] Consulting Physician Internal Medicine - Clinical Cardiac Electrophysiology 06/19/16 documented as of this encounter
--- OUTSIDE RECORDS SUMMARY | 2025-05-29 11:04 | XMS_ITS | Encounter Summary ---
Author Organization [place] [address] Care Team Providers Care Hearing Aid Repairer Name Role Phone Aden Pugh Primary Care Provider [phone] Clint Markham MD Unavailable [phone] Encounter Details Date Type Department Care Team (Latest Contact Info) Description 04/06/2025 Results Follow-Up [facility] [address] [facility] [address] [place] [address] Judy Klein, HEATH [address] [place], [place] [phone] TSH REFLEX TO FT4, T4, FREE (THYROXINE), COMPREHENSIVE METABOLIC PANEL Social History Tobacco Use Types Packs/Day Years [...] 9:29 AM EDT Rogers Kirkland RN * Does this person have difficulty [...] documented in this encounter Progress Notes * Thea Simms RMA - 04/06/2025 8:53 AM EDT LMORTR[facility] documented in this encounter Miscellaneous Notes * Telephone Encounter - Gail Davis, Clerical Staff - 04/06/2025 9:34 AM EDT Patient returned call. Relayed message Please forward results to Ulises Wilson at [facility] Thank you documented in this encounter Plan of Treatment Upcoming Encounters Date Type Department Care Team (Late st Contact Info) Description 06/15/2025 3:00 PM EST Office Visit [facility] [address] [facility] [address] [place] [address] Judy Klein, HEATH [address] [place] [address] documented as of this encounter Visit Diagnoses Not on filedocumented in this encounter Care Teams Hearing Aid Repairer Relationship Specialty Start Date End Date Aden Pugh [address] [place] [address] PCP - General Family Medicine 06/18/16 Clint Markham MD [address] [place] [address] [address] [place], [place] [phone] Consulting Physician Internal Medicine - Clinical Cardiac Electrophysiology 06/19/16 documented as of this encounter
--- NOTE | 2025-05-29 11:06 | ED_ITS ---
<Statement entered by Davy Velez MD - 05/29/25 15:15> I was consulted by the KEL, and we discussed the complexity of the problems being addressed. I approved the treatment and management plan for this patient's care in the emergency department, thus performing a substantive portion of the medical decision making. Davy Velez MD, DEAN, FACEP Discharge Plan Disposition Patient Disposition: Home, Self-Care Condition: Good Prescriptions Prescriptions: No Action amiodarone 200 mg tablet 200 mg PO DAILY Eliquis 5 mg tablet 5 mg PO BID 90 Days Qty: 180 2RF metoprolol tartrate 50 mg tablet 50 mg PO BID Qty: 60 2RF Referrals Follow up/Referrals: Provider,Linda, [Primary Care Provider, Medical] - See instructions Jadyn Skelton DPM [Staff Physician, Podiatry] - See instructions Lopez Mae DO [Staff Physician, Family Practice] - See instructions Activity Restrictions/Add. Instructions Additional Instructions/Restrictions: Please return to the emergency department any worsening signs or symptoms. Would consider follow-up with volunteer manager in the upcoming days/weeks if symptoms persist. Please follow-up with your PCP. Clinical Impressions Clinical Impression: Numbness of toes Instructions Patient Instructions: DI for Numbness/Tingling Print Language Print Language: Martiniquais Discharge ED Provider: Davy Velez General Adult HPI General Chief complaint: Extremity Problem,Nontraumatic Stated complaint: Lt toe pain, discoloration Time Seen by Provider: 05/29/25 10:52 Mode of Arrival: Ambulatory Source of Information: Patient Description of Symptoms (Recalled from ER Triage Doc. by RN): pt c/o a discolored L great toe ongoing since yesterday. pt denies pain or any other symptoms. pt denies injury. History of Present Illness HPI narrative: 44-year-old female presents emergency department at the request of urgent care treatment center for some discoloration , and numbness of her medial left great toe, that she first noted yesterday, patient denies any trauma or injury per history, denies any back pain, denies any radicular type symptomatology, denies any lower extremity numbness or tingling, no other upper or lower extremity weakness numbness tingling, denies any overt pain, extremity to command, denies any fever chills chest pain shortness of breath nausea vomiting constipation diarrhea no abdominal pain, no urinary symptomatology, patient is a former smoker denies any alcohol or drug use, other past medical history consistent with atrial fibrillation on anticoagulation therapy with Eliquis as well as rate control medication with metoprolol, patient was recently taken off her amiodarone 1 week ago, data deficient history of what sounds like hypothyroidism, ASIYA. Initial triage vitals are unremarkable. Please note that above description of symptoms, in this electronic medical record under categorization of recalled from ER triage doctor by RN are reflective of an initial nursing assessment, however, is not reflective of my full history and physical exam that was personally taken and clarified. Consequentially, this preceding description of symptoms, which may include the patient's categorized chief complaint in the EMR, do not reflect my personal clinical impression, and the ultimate description of history of present illness and patient stated complaints should be deferred to this section of the note. Unless stated otherwise or congruent with this section of the note, additional signs, symptoms, or incongruence should be interpreted as inaccurate with my clinical impression. Onset (ago): day(s) Related Data Home Medications ?Medication ?Instructions ?Recorded ?Confirmed amiodarone 200 mg tablet 200 mg PO DAILY 05/03/25 Previous Rx's ?Medication ?Instructions ?Recorded apixaban 5 mg tablet (Eliquis) 5 mg PO BID 90 days #18 0 tabs 04/30/25 metoprolol tartrate 50 mg tablet 50 mg PO BID #60 tabs 05/07/25 Allergies Allergy/AdvReac Type Severity Reaction Status Date / Time No Known Allergies Allergy Verified 05/29/25 11:04 [facility] Disclaimer: The information contained in this section may have been updated after the patient was seen, as this information can be updated by other users. 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 Symptomatic PVCs PAF (paroxysmal atrial fibrillation) GERD (gastroesophageal reflux disease) Anxiety Atrial fibrillation Dyspnea Chest pain Surgical History S/P ablation of atrial fibrillation Family History Other No significant family history Social History Smoking Status: Current every day smoker tobacco type: cigarettes packs per day: 1 second hand exposure: No alcohol intake: never substance use type: marijuana current occupational status: employed Travel in the last 8 weeks?: Inside the [place] household members: spouse and children caffeine: Yes Have you lived/traveled outside [place] in past 30 days?: No Contact w/someone who lives/traveled outside [place] past 30 days?: No Exposure to someone with infectious disease in past 14 days?: No Do you have a fever (greater than 100.4 F or 38 C)?: No Have you tested positive for COVID-19?: No Exposed to someone with COVID-19 in past 14 days?: No Do you have a sore throat?: No Do you have a cough?: No Do you have any weakness?: No Do you have any diarrhea?: No Are you experiencing any unusual bleeding?: No Do you have any muscle aches/pain?: No Do you have any abdominal pain?: No Are you experiencing loss of taste or smell?: No Other 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 Have you received the Flu Vaccine for this season: No Have you received the Pneumonia Vaccine: No ROS Obtained: Yes All systems reviewed & no additional complaints except as documented Physical Exam General General appearance: alert and in no apparent distress Head Head exam: atraumatic and normocephalic Eye Eye exam: Present PERRL and EOMI ENT ENT exam: Present mucous membranes moist Neck Neck exam: Present normal inspection Chest Chest inspection: Present normal inspection and symmetric chest wall rise Respiratory Respiratory exam: Present normal lung sounds bilaterally; Absent respiratory distress Cardiovascular Cardiovascular exam: Present regular rate and normal rhythm Abdominal Exam Abdominal exam: Present soft; Absent tenderness Extremities Exam Extremities exam: Present normal inspection, full ROM and other ( moves extremity to command, no pain to palpation, otherwise neurovascularly intact.); Absent tenderness or cyanosis Neurological Exam Neurological exam: Present alert and oriented X3 Psychiatric Psychiatric exam: Present normal affect Skin Skin exam: Present warm, dry, intact and other (Good cap refill, no cold to touch extremity, no hot to touch extremity, no erythema,); Absent erythema or pallor Medical Decision Making Medical Records Medical records reviewed: Yes I reviewed the patient's medical records. Screening: Per USPSTF and CDC recommendations, given the prevalence of disease in our region, it is our hospital?s policy to screen for HIV and viral Hepatitis for all patients aged 18 and over and those with ongoing risk factors. Kofi Inquiry Pt receiving controlled substance: No Vital Signs: 05/29/25 10:55 Temperature 98.3 F Temperature Source Oral Pulse Rate [Left] 73 Respiratory Rate 14 Blood Pressure [Right Arm] 155/83 H Blood Pressure Mean [Right Arm] 107 Blood Pressure Source [Right Arm] Automatic Cuff Blood Pressure Position [Right Arm] Sitting 02 Sat by Pulse Oximetry 99 Oxygen Delivery Method Room Air Medical Decision Narrative: 44-year-old female presents the emergency department with a left toe complaint, see HPI for detailed past medical history, differential diagnose include but not limited to toe sprain/strain, diabetic neuropathy, polyneuropathy, DVT, Buerger's disease, Raynaud's disease among others. I discussed this patient's case with the attending physician Dr. Velez he saw and examined the patient as well. Patient has good triphasic waveforms Doppler pulses in the DP and TP vessels, patient has very minimal discoloration, good cap refill, no concerns of ischemic limb at this time, patient has no other acute signs or symptoms, good pro prioception, does not follow a true dermatomal radicular type pattern, patient cleared to be discharged home to self-care, would follow-up with PCP/volunteer manager in the upcoming days/weeks, continue take all medication as prescribed. Especially patient continuing with her anticoagulation therapy. Critical Care Critical Care Time Critical Care Time: No
[2025-05-29 11:43] VITALS: BP 140/75; PULSE 80; RESP 14; TEMP 36.7; O2SAT 99
[2025-05-29 11:45] VITALS: BP 155/73; PULSE 74; RESP 18; TEMP 36.8; O2SAT 99
== END 2025-05-29 11:46 | disposition home or self-care (01) ==
PROVIDERS: Emergency Provider Student in an Organized Health Care Education/Training Program
DX: M79.675 Pain in left toe(s) (principal); R20.0 Anesthesia of skin; F17.210 Nicotine dependence, cigarettes, uncomplicated; I48.0 Paroxysmal atrial fibrillation; Z79.01 Long term (current) use of anticoagulants
CPT/HCPCS: 99282